=== PATIENT | female | born 1950 | race Caucasian/White ===

== ENCOUNTER → 2016-11-18 | Outpatient (REF) | payer OTHER, BC ==
[2016-11-18 15:33] LABS: ALBUMIN 3.2 g/dL (3.4-5.0); ALKALINE PHOSPHATASE 122 U/L (38-126); BUN/CREATININE RATIO 32 (10-20); CALCULATED IONIZED CALCIUM 4.9 mg/dL (3.8-4.6); MAGNESIUM* 2.5 mg/dL (1.6-2.3); PHOSPHORUS 3.9 mg/dL (2.4-4.9); TOTAL PROTEIN 5.1 g/dL (6.4-8.5)
[2016-11-18 15:34] LABS: MEAN CORPUSCULAR HGB CONC 32.6 g/dL (31.0-37.0); MEAN PLATELET VOLUME 12.1 FL (6.0-9.5); WHITE BLOOD COUNT 3.19 10^3uL (4.0-11.0)
[2016-11-18 15:37] LABS: MEAN CORPUSCULAR HEMOGLOBIN 35.3 PG (26.0-34.0); MEAN CORPUSCULAR VOLUME 108 FL (80-100)
[2016-11-18 15:46] LABS: PLATELET COUNT 25 10^3uL (150-450)
[2016-11-18 16:51] LABS: BAND NEUTROPHILS % 7 % (0-6); EOSINOPHILS % 0 % (0-4); LYMPHOCYTES # 0.6 #; MONOCYTES # 0.4 #; MONOCYTES % 12 % (3-11); SEGMENTED NEUTROPHILS % 57 % (51-67); TOTAL CELLS COUNTED 100
[2016-11-18 16:52] LABS: NUCLEATED RED BLOOD CELLS 3; POLYCHROMASIA SLIGHT; RBC MORPH SEE REFERENCE (NORMAL)
== END ==
LOC: LAB 12:00
PROVIDERS: ATTEND Nurse Practitioner
DX: Z94.81 Bone marrow transplant status (principal); B34.9 Viral infection, unspecified
CPT/HCPCS: 80053; 83735; 84100; 85025

== ENCOUNTER → 2016-11-25 | Outpatient (REF) | payer OTHER, BC ==
[~2016-11-25] MED LIST: ACYC800T PO; ALBU8.5H6 IH; ALEN70TA2 PO; AMITRIP TOP; ATOV750O4 PO; AZTH250C PO; BUDE10.2 IH; COLL30OI TOP; CYCL1DRO OU; D50KC PO; DOCU-243 PO; ETHA100T13 PO; GBPN100C PO; HC2.5C30 TOP; METO25TA2 PO; MGX400T PO; MNTL10T PO; NICO1PAT34 TD; ONDN4T PO; OXYC15TA PO; OXYC30TA77 PO; POLY17PO6 PO; POLY1DRO2 OU; POSA100T PO; PRD5T PO; RFMP300C PO; ROPI1TAB2 PO; SENN-126 PO; TACR0.5C PO; TRIA80OI2 TOP; URSO250T11 PO; VENL150C53 PO; [UNRECOGNIZED DRUG - OTHER] TOP
[2016-11-25 12:22] LABS: BAND NEUTROPHILS % 7 % (0-6); EOSINOPHILS % 1 % (0-4); MONOCYTES % 5 % (3-11); NUCLEATED RED BLOOD CELLS 1; POLYCHROMASIA SLIGHT; RBC MORPH SEE REFERENCE (NORMAL); SEGMENTED NEUTROPHILS % 64 % (51-67); TOTAL CELLS COUNTED 100
[2016-11-25 12:23] LABS: ANISOCYTOSIS MODERATE; MEAN CORPUSCULAR HGB CONC 32.7 g/dL (31.0-37.0); MEAN PLATELET VOLUME 11.6 FL (6.0-9.5); POIKILOCYTOSIS SLIGHT; WHITE BLOOD COUNT 4.43 10^3uL (4.0-11.0)
[2016-11-25 12:24] LABS: MEAN CORPUSCULAR VOLUME 110 FL (80-100)
[2016-11-25 12:40] LABS: ALBUMIN 3.1 g/dL (3.4-5.0); ANION GAP 8.3 MEQ/L (3-15); CALCULATED IONIZED CALCIUM 4.7 mg/dL (3.8-4.6); MAGNESIUM* 1.8 mg/dL (1.6-2.3); PHOSPHORUS 3.1 mg/dL (2.4-4.9); TOTAL PROTEIN 5.3 g/dL (6.4-8.5)
[2016-11-25 12:41] LABS: PLATELET COUNT 27 10^3uL (150-450)
== END ==
LOC: LAB 12:07
PROVIDERS: ATTEND Internal Medicine Hematology & Oncology
DX: B34.9 Viral infection, unspecified (principal); Z94.81 Bone marrow transplant status
CPT/HCPCS: 80053; 83735; 84100; 85007; 85027

== ENCOUNTER → 2016-12-02 | Outpatient (REF) | payer OTHER, BC ==
[2016-12-02 11:19] LABS: MEAN CORPUSCULAR HGB CONC 32.4 g/dL (31.0-37.0); MEAN PLATELET VOLUME 11.9 FL (6.0-9.5); PLATELET COUNT 37 10^3uL (150-450); WHITE BLOOD COUNT 5.37 10^3uL (4.0-11.0)
[2016-12-02 11:22] LABS: MEAN CORPUSCULAR HEMOGLOBIN 35.5 PG (26.0-34.0); MEAN CORPUSCULAR VOLUME 110 FL (80-100)
[2016-12-02 11:29] LABS: ALBUMIN 3.1 g/dL (3.4-5.0); ANION GAP 9.1 MEQ/L (3-15); CALCULATED IONIZED CALCIUM 4.7 mg/dL (3.8-4.6); MAGNESIUM* 1.6 mg/dL (1.6-2.3); TOTAL PROTEIN 5.5 g/dL (6.4-8.5)
[2016-12-02 11:35] LABS: ANISOCYTOSIS SLIGHT; BAND NEUTROPHILS % 7 % (0-6); EOSINOPHILS % 0 % (0-4); LYMPHOCYTES # 0.5 #; MONOCYTES # 0.5 #; MONOCYTES % 9 % (3-11); NUCLEATED RED BLOOD CELLS 6; RBC MORPH SEE REFERENCE (NORMAL); SEGMENTED NEUTROPHILS % 72 % (51-67); TOTAL CELLS COUNTED 100
[2016-12-02 11:36] LABS: POLYCHROMASIA SLIGHT
== END ==
LOC: LAB 09:38
PROVIDERS: ATTEND Nurse Practitioner
DX: Z94.81 Bone marrow transplant status (principal); B34.9 Viral infection, unspecified
CPT/HCPCS: 80053; 83735; 84100; 85007; 85027

== ENCOUNTER 2017-02-16 13:15 | Emergency (ER) | payer BC, MEDICAID, OTHER ==
[~2017-02-16] VITALS: Ht 170.2 cm; Wt 64.5 kg
--- OUTSIDE RECORDS SUMMARY | 2017-02-16 13:23 | XMS REPORT | Continuity of Care Document ---
Author Author [facility] Organization [facility] Address Unknown Phone Unavailable Care Team Providers Care 911 Telecommunicator Name Role Phone [place] PCP [phone] Source Comments Some departments are not documenting in the electronic medical record. If you do not see the information that you expected, contact Release of Information in the Health Information Management department at [phone] for further assistance in locating additional records.[facility] Active Allergies and Adverse Reactions Allergen Noted Date Severity Reactions Comments Cefepime 03/07/2016 Medium RASH Current Medications Prescription Sig. Disp. Refills Start End Date Status Date albuterol (VENTOLIN HFA, Inhale 2 Puffs by mouth 3 Inhaler 3 10/29/20 Active PROAIR HFA, PROVENTIL into the lungs every 6 16 HFA) 90 mcg/actuation hours as needed for inhaler Wheezing or Shortness of Breath. Shake well before use. magnesium oxide (MAG-OX) take 1 tablet by mouth 180 Tab 3 11/01/20 Active 400 mg tablet twice daily 16 polyethylene glycol 3350 Take 17 g by mouth daily. Active (GLYCOLAX; MIRALAX) 17 gram/dose powder metoprolol tartrate Take 0.5 Tabs by mouth 30 Tab 1 11/20/19 Active (LOPRESSOR) 25 mg tablet twice daily. 17 nicotine (NICODERM CQ Apply 1 Patch to top of 28 Patch 2 11/20/19 Active STEP 2) 14 mg/day patch skin as directed daily. 17 montelukast (SINGULAIR) Take 1 Tab by mouth at 30 Tab 11 11/20/19 Active 10 mg tablet bedtime daily. 17 azithromycin (ZITHROMAX) 1 Tab three times weekly. 13 Tab 11 11/20/19 Active 250 mg tablet . 17 rOPINIRole (REQUIP) 1 mg Take 1 Tab by mouth at 30 Tab 1 12/04/19 Active tablet bedtime daily. 17 alendronate (FOSAMAX) 70 Take 1 Tab by mouth every 12 Tab 3 12/04/19 Active mg tablet 7 days. Take at least 30 17 minutes before breakfast with plain water. Do not lie down for 30 minutes. hydrocortisone 2.5% Apply to rectum three 28.35 g 3 12/11/19 Active (ANUSOL-HC) 2.5 % rectal times daily. 17 cream ergocalciferol (VITAMIN Take 1 Cap by mouth every 12 Cap 0 12/12/19 Active D-2) 50,000 unit capsule 7 days. 17 docusate (COLACE) 100 mg Take 1 Cap by mouth twice 180 Cap 3 12/28/19 Active capsule daily. 17 senna (SENOKOT) 8.6 mg Take 1-2 Tabs by mouth at 90 Tab 3 12/28/19 Active tablet bedtime as needed for 17 Constipation. acyclovir (ZOVIRAX) 800 Take 1 Tab by mouth every 60 Tab 1 01/16/20 Active mg tablet 12 hours. 17 tacrolimus (PROGRAF) 0.5 Take 1 Cap by mouth twice 180 Cap 3 01/16/20 Active mg capsule daily. 17 collagenase (SANTYL) 250 Apply to pressure ulcer 30 g 0 01/16/20 Active unit/g topical ointment daily 17 AMITRIPTYLINE HCL Apply 100 g topically to 100 g 1 01/16/20 Active (AMITRIPTYLINE/GABAPENTIN affected area twice 17 /EMU OIL(#)) 4/4/10 % daily. gabapentin (NEURONTIN) Take 2 Caps by mouth 180 Cap 3 01/24/20 Active 100 mg capsule three times daily. 17 atovaquone (MEPRON) 750 Take 10 mL by mouth daily 300 mL 2 01/24/20 Active mg/5 mL oral suspension with breakfast. 17 polyvinyl Apply 1 Drop to both eyes 0 01/24/20 Active alcohol/povidone as Needed. 17 (REFRESH) 1.4/0.6 % ophthalmic solution cyclosporine (RESTASIS) Apply 1 Drop to both eyes 30 Each 2 01/24/20 Active 0.05 % ophthalmic twice daily. 17 emulsion triamcinolone acetonide Apply topically to 80 g 0 01/24/20 Active (KENALOG) 0.1 % topical affected area twice 17 ointment daily. ondansetron (ZOFRAN) 4 mg Take 1-2 Tabs by mouth 30 Tab 0 01/24/20 Active tablet every 6 hours as needed 17 for Nausea. budesonide/formoterol Inhale 2 Puffs by mouth Active (SYMBICORT HFA) 160/4.5 into the lungs twice mcg inhalation daily. venlafaxine XR (EFFEXOR Take 1 Cap by mouth 30 Cap 3 02/07/20 Active XR) 150 mg capsule daily. Take with food. 17 oxyCODONE (OXYCONTIN) 30 One tab by mouth every 8 90 Tab 0 02/14/20 Active mg tablet hours 17 oxyCODONE (ROXICODONE, Take 1 Tab by mouth every 120 Tab 0 02/14/20 Active OXY-IR) 15 mg tablet 4 hours as needed for 17 Pain rifAMPin (RIFADINE) 300 Take 2 Caps by mouth 24 Cap 3 02/15/20 Active mg capsule three times weekly. MWF 17 Take on an empty stomach at least 1 hour before or 2 hours after food. ethambutol (MYAMBUTOL) Take 16 Tabs by mouth 120 Tab 3 02/15/20 Active 100 mg tablet three times weekly. 17 Indications: ATYPICAL MYCOBACTERIAL INFECTION posaconazole EC (NOXAFIL) Take 3 Tabs by mouth 90 Tab 2 02/15/20 Active 100 mg tablet daily with breakfast. ON 17 HOLD 02/14 WITH ELEVATED ALT prednisone (DELTASONE) 5 Take 2 Tabs by mouth 300 Tab 2 02/15/20 Active mg tablet twice daily with meals. 17 DECREASED 02/14. ursodiol (ANAHI 250) 250 Take 2 Tabs by mouth 120 Tab 1 02/15/20 Active mg tablet twice daily. 17 ruxolitinib (JAKAFI) 10 Take 1 Tab by mouth twice 02/15/20 Active mg tablet daily. 17 gabapentin (NEURONTIN) Take 1 Cap by mouth three 90 Cap 3 11/27/19 01/24/20 Discontin 300 mg capsule times daily. 17 17 ued dapsone 100 mg tablet Take 1 Tab by mouth 30 Tab 3 11/27/19 Discontin daily. 17 17 ued fluticasone/salmeterol Inhale 1 Puff by mouth 1 Inhaler 11 11/29/19 01/28/20 Discontin (ADVAIR DISKUS) 500-50 into the lungs every 12 17 17 ued mcg inhalation disk hours. Indications: GVHD venlafaxine XR (EFFEXOR Take 1 Cap by mouth 30 Cap 3 12/04/19 Discontin XR) 150 mg capsule daily. Take with food. 17 17 ued potassium chloride SR Take 1 Tab by mouth twice 60 Cap 1 12/18/19 Discontin (K-DUR) 20 mEq tablet daily with meals. Take 17 17 ued with a meal and a full glass of water. oxyCODONE (ROXICODONE, Take 1-2 Tabs by mouth 60 Tab 0 01/16/20 Discontin OXY-IR) 5 mg tablet every 6 hours as needed 17 17 ued for Pain Earliest Fill Date: 01/15/17 oxyCODONE SR (OXYCONTIN) Take 1 Tab by mouth every 42 Tab 0 01/16/20 01/24/20 Discontin 20 mg tablet 8 hours Earliest Fill 17 17 ued Date: 01/15/17 amiodarone (CORDARONE) Take 1 Tab by mouth 30 Tab 1 01/16/20 Discontin 200 mg tablet daily. Take with food. 17 17 ued tacrolimus (PROGRAF) 0.5 Take 1 Cap by mouth 180 Cap 3 01/22/2008/06 Discontin mg capsule daily. 17 17 ued furosemide (LASIX) 40 mg Take 1 Tab by mouth every 90 Tab 3 01/16/20 01/24/20 Discontin tablet morning. 17 17 ued tacrolimus (PROGRAF) 0.5 Take 1 capsule the 43 Cap 0 01/16/20 Discontin mg capsule evening of discharge, 17 17 ued then take 1 capsule twice daily x 14 days starting 01/08. Then take 1 capsule daily x 2 weeks & stop ruxolitinib (JAKAFI) 10 Take 1 Tab by mouth twice 60 Tab 3 01/18/20 01/21/20 Discontin mg tablet daily. 17 17 ued ruxolitinib (JAKAFI) 10 Take 1 Tab by mouth twice 60 Tab 3 01/21/20 01/24/20 Discontin mg tablet daily. 17 17 ued oxyCODONE SR (OXYCONTIN) Take 1 Tab by mouth every 42 Tab 0 01/24/20 02/14/20 Discontin 20 mg tablet 12 hours 17 17 ued posaconazole EC (NOXAFIL) Take 3 Tabs by mouth 90 Tab 2 01/24/20 Discontin 100 mg tablet daily with breakfast. 17 17 ued prednisone (DELTASONE) 5 Take 5 Tabs by mouth 300 Tab 2 01/24/20 Discontin mg tablet twice daily with meals. 17 17 ued ruxolitinib (JAKAFI) 10 Take 1 Tab by mouth twice 60 Tab 3 01/24/20 01/31/20 Discontin mg tablet daily. 17 17 ued prednisone (DELTASONE) 5 Take 3 Tabs by mouth 300 Tab 2 02/06/20 Discontin mg tablet twice daily with meals. 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 ([facility]) 2016 Closed compression fracture of third lumbar vertebra ([facility]) 02/14/2017 Closed compression fracture of fifth lumbar vertebra ([facility]) 02/14/2017 Elevated ALT measurement 02/14/2017 Hyperkalemia 02/05/2017 Osteoporosis 02/05/2017 Bilateral dry eyes 01/23/2017 Decubitus ulcer of left buttock, stage 2 12/25/2016 Hemorrhoids 12/11/2016 Hypogammaglobulinemia ([facility]) 12/04/2016 Constipation 12/04/2016 Tobacco abuse counseling 11/20/2016 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 ([facility]) 11/20/2016 Major depressive disorder, recurrent, in partial remission ([facility]) 09/17/2016 Major depressive disorder, recurrent episode, mild ([facility]) 09/14/2016 Steroid myopathy 09/13/2016 Compression fracture 09/06/2016 Acute pain due to trauma 09/04/2016 Closed fracture of proximal end of right humerus with nonunion 08/30/2016 Low back pain 08/23/2016 Fatigue 08/12/2016 Hyperpigmentation 08/07/2016 Vertigo 08/07/2016 Atrial flutter, paroxysmal ([facility]) 08/05/2016 Overview: 08/12/16-Comprehensive EPS/Radiofrequency ablation of atrial flutter 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 Anemia due to chronic illness 07/29/2016 Restless leg syndrome 07/29/2016 Sciatica 07/26/2016 Non-rheumatic mitral regurgitation 07/05/2016 Paroxysmal atrial fibrillation ([facility]) 07/01/2016 Last Assessment & Plan: The patient has a history of periprocedural afib sp dccv during her CTI ablation in 07/2016 and post procedural afib 2 days later. She was to continue AAD therapy with Amio 200 mg daily, and follow up with Dr. Grady. She has been since been lost to follow up. Since 07/2016 she has been dc'd of her Amio and anticoagulation. The patient has been asymptomatic of her atrial arrhthymias in the past, in which I recommended further evaluation with a looping secured entrance monitor. She is to follow up with Dr. Grady in 4 weeks to discuss results. If she has recurrent AF, OAC will need to be addressed (CHADSVASC1 for female), and if the burden is high, discussing treatment options of AAD therapy vs. Catheter based ablation. 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 L ast Assessment & Plan: Following with Oncology, and currently in remission Thrombocytopenia ([facility]) 03/26/2016 Resolved Problems Problem Noted Date Resolved Date Generalized abdominal pain 12/25/2016 02/05/2017 Oral ulceration 11/12/2016 12/25/2016 Hypocalcemia 11/10/2016 11/13/2016 Nausea vomiting and diarrhea 10/06/2016 10/06/2016 Nausea, vomiting and diarrhea 10/06/2016 10/06/2016 Increased nausea and vomiting 10/06/2016 10/09/2016 Hypophosphatemia 08/16/2016 11/20/2016 Pancytopenia ([facility]) 08/14/2016 12/25/2016 Paroxysmal a-fib ([facility]) 08/10/2016 08/21/2016 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[facility]) 08/09/2016 12/25/2016 Decreased appetite 08/01/2016 11/20/2016 Elevated white blood cell count 07/29/2016 08/07/2016 Hypomagnesemia 07/29/2016 12/25/2016 Nausea 07/23/2016 08/07/2016 Acute respiratory failure with hypoxia ([facility]) 07/05/2016 07/17/2016 Pleural effusion, bilateral 07/05/2016 07/17/2016 QT prolongation 07/05/2016 11/20/2016 NANO (acute kidney injury) ([facility]) 06/30/2016 07/17/2016 Hypoxia 06/30/2016 07/29/2016 SOB (shortness of breath) 06/30/2016 11/20/2016 Hypotension 06/21/2016 11/20/2016 Oral mucositis (ulcerative) due to antineoplastic therapy 06/21/201607/17 Diarrhea 06/20/2016 07/17/2016 Postural dizziness 06/20/2016 07/17/2016 Hypokalemia 06/20/2016 11/20/2016 Syncope 06/17/2016 11/20/2016 Fall 06/15/2016 11/20/2016 Overview: Patient fell on 08/06/16 Conditioning chemotherapy prior to peripheral blood stem cell transplant 06/17/2016 Orthostatic hypotension 05/23/2016 12/25/2016 Pancytopenia due to antineoplastic chemotherapy ([facility]) 05/11/20162015 Nausea 05/05/2016 07/17/2016 On antineoplastic chemotherapy 03/26/2016 08/26/2016 Most Recent Encounters Date Type Specialty Providers Description 02/14/2017 Office Visit Oncology Vicki Kimball MD GVH (graft versus host CareyBebeto mazariegos, NOC ANALYST disease) (HCC) (Primary Dx); Decubitus ulcer of left buttock, stage 2; Steroid-induced myopathy; S/P allogeneic bone marrow transplant (HCC); 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 (HCC); Low back pain without sciatica, unspecified back pain laterality, unspecified chronicity; Closed compression fracture of third lumbar vertebra (HCC); Closed compression fracture of fifth lumbar vertebra (HCC) 02/14/2017 Nurse Only Oncology Vicki Kimball MD 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 (HCC); S/P allogeneic bone marrow transplant (HCC); 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[facility]) 02/14/2017 Office Visit Infectious Diseases Sandrine Leahy DO Mycobacterium avium complex (HCC) (Primary Dx); 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) 02/14/2017 Hospital Cardiology Vicki Kimball MD Arrived Encounter 02/14/2017 Office Visit Cardiology Edith Buckley MD New To Provider - discuss Tanja Saleem PA-C med changes 02/14/2017 Orders Only Oncology Sherice Akbar, PHARMD 02/14/2017 Documentation Cardiology Bobbi Desai Other - event monitor Enrollment confirmed-CardioLabs 02/14/2017 Documentation Oncology Manuel Godinez MD 02/13/2017 [facility] Burn Surgery / Burn Care Benito Ruth MD Encounter 02/13/2017 Office Visit Oncology Manuel Godinez MD H/O stem cell transplant (HCC) (Primary Dx); Low back pain without sciatica, unspecified back pain laterality, unspecified chronicity; 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[facility]) 02/12/2017 Documentation Oncology Manuel Godinez MD 02/12/2017 Telephone Oncology Dre Brink Appointment - Called spoke w/pt - she confirmed appt for 02/1302/10/2017 Telephone Infectious Diseases Sandrine Leahy DO General Question 02/10/2017 Telephone Oncology Manuel Godinez MD Appointment - LM for Palliative Care appt 02/08/2017 [facility] Radiology Edith Buckley MD Encounter 02/08/2017 Ancillary Oncology Edith Buckley MD H/O stem cell transplant Orders (HCC) (Primary Dx) 02/07/2017 Screening Form 02/06/2017 [facility] Burn Surgery / Burn Care Emily Puente, ABHILASH Encounter 02/06/2017 Orders Only Oncology Shahida Roy RN 02/06/2017 Telephone Oncology Jane Gallegos RN BMT Follow-up 02/06/2017 Orders Only Oncology Edith Buckley MD H/O stem cell transplant (HCC) (Primary Dx) 02/06/2017 Telephone Oncology Kavya Santillan Other RN 02/06/2017 Documentation Oncology Yesi Resendez RN 02/05/2017 Office Visit Oncology Edith Buckley MD 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 (HCC) (Primary Dx); S/P allogeneic bone marrow transplant (HCC); 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); Low back pain without sciatica, unspecified back pain laterality, unspecified chronicity; Decubitus ulcer of left buttock, stage 2; Hyperkalemia; Osteoporosis 02/05/2017 Hospital Oncology Edith Buckley MD Encounter 02/03/2017 Telephone Oncology Shahida Roy RN BMT Follow-up 02/03/2017 Documentation Oncology Kavya Santillan RN 01/31/2017 [facility] Radiology Vicki Kimball MD Encounter 01/31/2017 [facility] Burn Surgery / Burn Care Emily Puente, ABHILASH Encounter 01/30/2017 Office Visit Pulmonology Mat Rothman MD Lung nodule ( Primary Dx); Bronchiolitis obliterans syndrome (HCC); 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); Tobacco abuse counseling; Steroid-induced myopathy 01/30/2017 Hospital Radiology Asim Sheets MD Encounter 01/30/2017 Procedure visit Anesthesia Pain Asim Sheets MD Lumbar radiculopathy (Primary Dx); Degeneration of lumbar or lumbosacral intervertebral disc 01/30/2017 Orders Only Oncology Shahida Roy RN H/O stem cell transplant (HCC) (Primary Dx) 01/30/2017 Ancillary Anesthesia Pain Asim Sheets MD Lumbar radiculopathy Orders (Primary Dx); Right shoulder pain, unspecified chronicity 01/30/2017 Ancillary Pain Management Asim Sheets MD Orders 01/29/2017 Documentation Oncology Kavya Santillan RN 01/29/2017 Orders Only Oncology Shahida Roy RN H/O stem cell transplant (HCC) (Primary Dx) 01/27/2017 Office Visit Oncology Edith Buckley MD Bronchiolitis obliterans syndrome (HCC) (Primary Dx) 01/27/2017 Hospital Oncology Edith Buckley MD Encounter 01/27/2017 Orders Only Oncology Katherine Linares ARNP Mantle cell lymphoma, unspecified body region (Primary Dx); H/O stem cell transplant (HCC) 01/27/2017 Telephone Oncology Shahida Roy RN BMT Follow-up 01/27/2017 Telephone Ophthalmology Emelyn Tnieo, LISY Appointment 01/24/2017 Orders Only Oncology Fifi Haley RN H/O stem cell transplant (HCC) (Primary Dx) 01/21/2017 Documentation Oncology Vicki Kimball MD 01/20/2017 Orders Only Orthopedic Surgery Antoni Chavarria MD Surgery follow-up (Primary Dx) 01/17/2017 Documentation Zoie Andre 01/17/2017 Documentation Oncology Vicki Kimball MD 01/17/2017 Orders Only Oncology Shereen Dye, KINSEYD 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) (Primary Dx) 01/16/2017 Surgery Janusz Aragon MD BRONCHOSCOPY WITH LAVAGE 01/16/2017 Prep for Case Janusz Aragon MD 01/15/2017 [facility] Vicki Kimball MD Bronchiolitis obliterans - Encounter Reji Castaneda DO syndrome (HCC) 01/23/2017 01/15/2017 Anesthesia Mojgan Goode, SRNA Event 01/15/2017 Orders Only Oncology Edith Buckley MD 01/14/2017 Hospital Encounter 01/11/2017 Hospital Cardiology Vaibhav Astorga DO Encounter 01/01/2017 [facility] Radiology Vicki Kimball MD Encounter Barb Livingston RN Sattarin, Hameed Collins, Zachary S, MD 01/01/2017 Screening Form 12/28/2016 [facility] Rehabilitation Cely Espinal MD Steroid-induced myopathy - Encounter Vaibhav Astorga DO 01/15/2017 12/25/2016 Hospital Edith Buckley MD Thrombocytopenia (HCC) - Encounter Kobi Ho MD 12/28/2016 12/25/2016 Hospital Oncology Edith Buckley MD Encounter 12/25/2016 Office Visit Oncology Vicki Kimball MD H/O stem cell transplant Edith Buckley MD (HCC) (Primary Dx); 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 (HCC); 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); Generalized abdominal pain; Fatigue due to exposure, subsequent encounter; Steroid-induced myopathy; S/P allogeneic bone marrow transplant (HCC); Hypogammaglobulinemia (HCC); Decubitus ulcer of left buttock, stage 2 12/25/2016 Nurse Only Oncology Vicki Kimball MD Hypogammaglobulinemia (HCC) (Primary Dx); 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); S/P allogeneic bone marrow transplant (HCC); 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 (HCC) 12/23/2016 Documentation Oncology Sandrine Hui RN 12/18/2016 Nurse Only Oncology Vicki Kimball MD 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) (Primary Dx); 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 (HCC); S/P allogeneic bone marrow transplant (HCC) 12/18/2016 Orders Only Oncology Bebeto Carey APRN History of stem cell transplant (HCC) (Primary Dx) 12/18/2016 Refill Oncology Katherin Chaney RN Mantle cell lymphoma, unspecified body region (Primary Dx) 12/18/2016 Refill Oncology Katherin Chaney RN Mantle cell lymphoma, unspecified body region (Primary Dx) 12/18/2016 Telephone Oncology Kavya Santillan Other RN 12/12/2016 Orders Only Oncology Claudia Ballard APRN 12/12/2016 Orders Only Oncology Claudia Ballard APRN 12/11/2016 [facility] Oncology Vicki Kimball MD Encounter 12/11/2016 Office Visit Oncology Vicki Kimball MD 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 (HCC) (Primary Dx); 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); S/P allogeneic bone marrow transplant (HCC); Steroid-induced myopathy; Hemorrhoids, unspecified hemorrhoid type; Hypomagnesemia 12/11/2016 Nurse Only Oncology Vicki Kimball MD S/P allogeneic bone marrow transplant (HCC); 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 (HCC); 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) 12/11/2016 Orders Only Oncology Claudia Ballard APRN 12/11/2016 Orders Only Oncology Cassandra Sullivan, PHARMD 12/09/2016 Telephone Oncology Sandrine Hui RN Other - HH and lab work 12/09/2016 Telephone Oncology Heidy Mejia BMT Follow-up - 180 day 12/06/2016 Documentation Oncology Sandrine Hui RN 12/05/2016 Procedure visit Anesthesia Pain Asim Sheets MD Lumbar radiculopathy (Primary Dx); Degeneration of lumbar or lumbosacral intervertebral disc 12/05/2016 Hospital Radiology Asim Sheets MD Encounter 12/05/2016 Ancillary Pain Management Asim Sheets MD Lumbar radiculopathy Orders (Primary Dx) 12/04/2016 Office Visit Oncology Vicki Kimball MD 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 (HCC) (Primary Dx); 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); S/P allogeneic bone marrow transplant (HCC); Bronchiolitis obliterans syndrome (HCC); Hypogammaglobulinemia (HCC); Thrombocytopenia (HCC); Other constipation; Steroid-induced myopathy 12/04/2016 Hospital Oncology Vicki Kimball MD Encounter 12/04/2016 Documentation Oncology Sandrine Hui RN 12/03/2016 Documentation Oncology Yesi Resendez RN 11/29/2016 Documentation Oncology Sandrine Hui RN 11/28/2016 [facility] Oncology Surjit Phipps MD Encounter 11/28/2016 Orders Only Oncology Cassandra Sullivan, PHARMD 11/28/2016 Telephone Pulmonology Mat Rothman MD Medication Problem 11/27/2016 Office Visit Oncology Vicki Kimball MD 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) (Primary Dx); 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 (HCC); 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HCC); H/O stem cell transplant (HCC); Steroid-induced myopathy; Pancytopenia (HCC) 11/27/2016 Hospital Oncology Vicki Kimball MD Encounter 11/27/2016 Office Visit Orthopedic Surgery Antoni Chavarria MD Closed torus fracture of proximal end of right humerus with nonunion, subsequent encounter (Primary Dx) 11/27/2016 Orders Only Oncology Nestor Allen APRN 11/25/2016 Orders Only Oncology Yesi Son, ABHILASH S/P allogeneic bone marrow transplant (HCC) (Primary Dx) 11/21/2016 Hospital Radiology Asim Sheets MD Canceled (Error) Encounter 11/21/2016 Ancillary Pain Management Asim Sheets MD Lumbar radiculopathy Orders (Primary Dx) 11/20/2016 Office Visit Pulmonology Mat Rothman MD GVHD (graft versus host disease) (HCC) (Primary Dx); Bronchiolitis obliterans syndrome (HCC); 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); 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 (HCC) 11/20/2016 Office Visit Oncology Reji Castaneda DO Mantle cell lymphoma of Vicki Kimball MD lymph nodes of multiple regions (HCC) (Primary Dx); 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HCC); S/P allogeneic bone marrow transplant (HCC); Thrombocytopenia (HCC); Steroid myopathy; Pancytopenia (HCC); Low back pain without sciatica, unspecified back pain laterality, unspecified chronicity; Oral ulceration; Tobacco abuse counseling; Steroid-induced myopathy 11/20/2016 [facility] Oncology Reji Castaneda DO Encounter Vicki Kimball MD Immunizations Name Dates Previously Given Next Due Flu Vaccine 08/01/2016 Quadrivalent=>3 Yo (Preservative Free) Hepatitis B Vaccine Ill 01/27/2017 Patient 4 Dose IM Hib conj vaccine, 4 dose 01/27/2017 (PRP-T) IM (ActHIB) IPV 01/27/2017 Meningococcal Conjug 01/27/2017 Vaccine IM (Menveo) [place] Component 1 Meningococcal Conjug 01/27/2017 Vaccine IM (Menveo) [id number]-135 Component 2 Pneumococcal 01/27/2017 Vaccine([facility]/immunocompromised adult) Tdap Vaccine 01/27/2017 Social History Tobacco Use Types Packs/Day Years Used Date Former Smoker Cigarettes Quit: 06/05/2016 Smokeless Tobacco: Never Used Comments: pt does vape at times Alcohol Use Drinks/Week oz/Week Comments No rarely Last Filed Vital Signs Vital Sign Reading Time Taken Blood Pressure 144/85 02/14/2017 3:22 PM CDT Pulse 74 02/14/2017 3:22 PM CDT Temperature 36.8 C (98.2 F) 02/14/2017 3:22 PM CDT Respiratory Rate 17 02/14/2017 3:22 PM CDT Height 1.778 m (5' 10") 02/14/2017 2:43 PM CDT Weight 64.411 kg (142 lb) 02/14/2017 2:43 PM CDT Body Mass Index 20.37 02/14/2017 2:43 PM CDT Oxygen Saturation 100% 02/14/2017 2:43 PM CDT Plan of Care Health Maintenance Due Date Last Done Comments Hepatitis C Screening 1950 Physical (Comprehensive) 1959 Exam Cervical Cancer Screening 1973 Colorectal Cancer 2002 Screening Shingles Vaccine 2012 Breast Cancer Screening 03/27/2017 03/27/2016 Influenza Vaccine 07/18/2017 08/01/2016 Tetanus Vaccine 01/27/2027 01/27/2017 Pertussis Vaccine Completed 01/27/2017 Procedures from Last 3 Months Procedure Name Priority Date/Time Associated Diagnosis Comments PROCEDURE RECORD-SCAN 02/04/2017 Results for this 1:00 PM CDT procedure are in the results section. TELEMETRY STRIPS-SCAN 01/26/2017 Results for this 5:45 PM CDT procedure are in the results section. ECG UNCONFIRMED-SCAN 01/26/2017 Results for this 5:20 PM CDT procedure are in the results section. EXERCISE OXIMETRY-SCAN 01/26/2017 Results for this 5:13 PM CDT procedure are in the results section. EXERCISE OXIMETRY-SCAN 01/23/2017 Results for this 2:53 PM FIRE ENGINE OPERATOR procedure are in the results section. ECG-SCAN 01/23/2017 Results for this 8:26 AM FIRE ENGINE OPERATOR procedure are in the results section. SLEEP STUDY-SCAN 01/20/2017 Results for this 1:07 PM FIRE ENGINE OPERATOR procedure are in the results section. EXERCISE OXIMETRY-SCAN 01/20/2017 Results for this 1:07 PM FIRE ENGINE OPERATOR procedure are in the results section. BRONCHOSCOPY WITH LAVAGE 01/16/2017 Lung infiltrate 3:15 PM FIRE ENGINE OPERATOR EXERCISE OXIMETRY-SCAN 01/15/2017 Results for this 2:34 PM FIRE ENGINE OPERATOR procedure are in the results section. SLEEP STUDY-SCAN 01/15/2017 Results for this 2:33 PM FIRE ENGINE OPERATOR procedure are in the results section. SLEEP STUDY-SCAN 01/14/2017 Results for this 2:47 PM FIRE ENGINE OPERATOR procedure are in the results section. WA NJX ANES&/STRD W/IMG Routine 12/05/2016 Lumbar radiculopathy Results for this TFRML EDRL LMBR/SAC EA LV 4:07 PM FIRE ENGINE OPERATOR Degeneration of lumbar or procedure are in the lumbosacral results section. intervertebral disc WA NJX ANES&/STRD W/IMG Routine 12/05/2016 Lumbar radiculopathy Results for this TFRML EDRL LMBR/SAC 1 LVL 4:07 PM FIRE ENGINE OPERATOR Degeneration of lumbar or procedure are in the lumbosacral results section. intervertebral disc Results from Last 3 Months MAGNESIUM (02/14/2017 2:40 PM)Only the most recent of 17 results within the time period is included. Component Value Range Magnesium 2.3 1.6-2.6 mg/dL Specimen Blood COMPREHENSIVE METABOLIC PANEL (02/14/2017 2:40 PM)Only the most recent of 13 results within the time period is included. Component Value Range Sodium 139 137-147 MMOL/L Potassium 4.3 3.5-5.1 MMOL/L Chloride 105 98-110 MMOL/L Glucose 135 (H) 70-100 MG/DL Blood Urea Nitrogen 28 (H) 7-25 MG/DL Creatinine 0.85 0.4-1.00 MG/DL Calcium 8.9 8.5-10.6 MG/DL Total Protein 5.8 (L) 6.0-8.0 G/DL Total Bilirubin 0.3 0.3-1.2 MG/DL Albumin 3.4 (L) 3.5-5.0 G/DL Alk Phosphatase 198 (H) 25-110 U/L AST (SGOT) 33 7-40 U/L CO2 28 21-30 MMOL/L ALT (SGPT) 62 (H) 7-56 U/L Anion Gap 6 3-12 eGFR Non >60Comment: >60 mL/min The eGFR is not validated for use in drug dosing adjustments. Continue to use estimated creatinine clearance per dosing reference text. Please contact the Clinical Pharmacist for questions. eGFR >60Comment: >60 mL/min The eGFR is not validated for use in drug dosing adjustments. Continue to use estimated creatinine clearance per dosing reference text. Please contact the Clinical Pharmacist for questions. Specimen Blood CBC AND DIFF (02/14/2017 2:40 PM)Only the most recent of 22 results within the time period is included. Component Value Range White Blood Cells 7.9 4.5-11.0 K/UL RBC 3.04 (L) 4.0-5.0 M/UL Hemoglobin 10.4 (L) 12.0-15.0 GM/DL Hematocrit 31.7 (L) 36-45 % MCV 104.1 (H) 80-100 FL MCH 34.1 (H) 26-34 PG MCHC 32.8 32.0-36.0 G/DL RDW 17.7 (H) 11-15 % Platelet Count 86 (L) 150-400 K/UL MPV 9.4 7-11 FL Segmented Neutrophils 75 41-77 % Bands 3 0-10 % Lymphocytes 9 (L) 24-44 % Monocytes 10 4-12 % Metamyelocyte 2 % Myelocyte 1 % ANISO PRESENT POIK PRESENT Ovalocyte PRESENT MACRO PRESENT Platelet Estimate MOD DEC Absolute Neutrophil Count 6.17 1.8-7.0 K/UL Manual Specimen Blood 2-D + DOPPLER ECHOCARDIOGRAM (02/14/2017 1:55 PM)Only the most recent of 2 results within the time period is included. Component Value Range BSA 1.76 m2 ECHO EF 60 % Referring Provider [place] LVIDD 4.6 3.9-5.3 cm LVIDS 3.4 cm IVS 1.0 0.6-0.9 cm PW 1.0 0.6-0.9 cm FS 26.09 28-44 % EF 44.35 % LA size 4.0 2.7-3.8 cm LA volume 45.0 22-52 mL Left Atrium Index 25.57 10-32 Right Ventricular Basal 3.1 cm (2.4-4.2) Diameter Right Atrial Area 10.0 cm2 (<=18) Right Ventricular Mid 2.0 cm (2.0-3.5) Diameter Right Ventricular Long 7.0 cm (5.6-8.6) Diameter Sinus 3.0 2.1-3.5 cm AV peak velocity 1.2 m/s MV vena contracta 0.80 cm Vn Nyquist 0.34 m/s Radius 0.5 cm Mr max ramses 6.2 m/s MR PISA EROA 0.09 cm2 TV rest pulmonary artery 30 mmHg pressure E/A ratio 0.71 TDI e' 0.060 m/s E/E' ratio 8.33 MV Peak E Ramses PW 0.500 m/s MV Peak A Ramses 0.700 m/s Narrative Rest Echo: Overall left ventricular systolic function is normal. EF~ 60% No regional wall motion abnormalities identified Valves appear structurally normal without signficant stenosis or regurgitation No significant pericardial effusion Normal chamber dimensions Normal LV wall thickness Normal diastolic function Normal aortic root dimensions Estimated peak systolic PA pressure=30 mmHg MRI L-SPINE WO/W CONTRAST (02/08/2017 8:07 AM) Impressions 1.Redemonstration of moderate L1 compression deformity with slight retropulsion of the superior vertebral body which impresses on the ventral thecal sac without significant spinal canal compromise. 2.Development of superior endplate compression fractures at L3 and L5. 3.Redemonstration of bilateral sacral alar fractures, partially visualized. 4.Unchanged S2 Compression fracture. 5.Prior T11 and T12 vertebroplasty with unchanged mild compression deformities. 6.Multilevel neural foraminal and spinal canal narrowing, which is greatest of a moderate degree at L2-L3. A message was sent with high priority via the electronic medical record communicating new findings. Additionally, findings were discussed with Dr. Buckley via phone at 10:14 AM on 02/09/2017. Approved by Renae Edwards D.O. on 02/10/2017 10:15 AM By my electronic signature, I attest that I have personally reviewed the images for this examination and formulated the interpretations and opinions expressed in this report Finalized by Guanaco Ching M.D. on 02/10/2017 5:17 PM. Dictated by Renae Edwards D.O. on 02/10/2017 7:12 AM. Narrative EXAM: MRI L-SPINE HISTORY: 66-year-old female, low back pain. Mantle cell lymphoma. Technique: Multiple sagittal and axial MR sequences were obtained of the lumbar spine with and without gadolinium contrast. Comparison: MRI L-spine 09/01/2016; L spine radiographs 11/04/2016; CT chest 01/15; CT abdomen/pelvis 12/25/2016 FINDINGS: 5 nonrib-bearing lumbar-type vertebral bodies are identified. Redemonstration of prior vertebroplasty at T11 and T12 with unchanged mild compression deformity at these levels. Redemonstration of a moderate compression deformity of L1 vertebral body resulting in greater than 50% height loss and slight retropulsion of the posterior vertebral body, which impresses on the ventral thecal sac without significant spinal canal compromise. Additionally there has been development of compression fractures along the superior aspect of the L3 and L5 vertebral bodies without significant height loss. Partially visualized and redemonstrated bilateral sacral alar fractures. Unchanged mild S2 compression deformity. There is unchanged grade 1 anterolisthesis of L3 on L4. Lumbar alignment is otherwise maintained. 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 T12-L1: Slight retropulsion of the superior vertebral body, degenerative disc disease, and facet hypertrophy result in mild bilateral neural foraminal narrowing. There is impression on the ventral thecal sac without significant spinal canal narrowing. L1-L2: Degenerative disc disease, symmetric disc bulge, and facet hypertrophy result in mild bilateral neural foraminal narrowing without significant spinal canal compromise. L2-L3: Degenerative disease, symmetric disc bulge, ligament flavum thickening and facet arthrosis result in moderate bilateral neural foraminal narrowing and central spinal stenosis. L3-L4: Anterolisthesis, symmetric disc bulge, degenerative disc disease, and facet arthrosis result in mild right and moderate left neural foraminal narrowing with mild central spinal stenosis. L4-L5: Degenerative disc disease symmetric disc bulge, and facet arthrosis is present without significant neural foraminal or spinal canal compromise. L5-S1: Degenerative disc disease and facet arthrosis is present without significant neural foraminal or spinal canal compromise. Fatty atrophy of the paraspinous musculature. The visualized paraspinous structures are otherwise unremarkable. Procedure Note Interface, Radiant Results - FriFeb 10, 2017 5:20 PM CDT EXAM: MRI L-SPINE HISTORY: 66-year-old female, low back pain. Mantle cell lymphoma. Technique: Multiple sagittal and axial MR sequences were obtained of the lumbar spine with and without gadolinium contrast. Comparison: MRI L-spine 09/01/2016; L spine radiographs 11/04/2016; CT chest 01/15; CT abdomen/pelvis 12/25/2016 FINDINGS: 5 nonrib-bearing lumbar-type vertebral bodies are identified. Redemonstration of prior vertebroplasty at T11 and T12 with unchanged mild compression deformity at these levels. Redemonstration of a moderate compression deformity of L1 vertebral body resulting in greater than 50% height loss and slight retropulsion of the posterior vertebral body, which impresses on the ventral thecal sac without significant spinal canal compromise. Additionally there has been development of compression fractures along the superior aspect of the L3 and L5 vertebral bodies without significant height loss. Partially visualized and redemonstrated bilateral sacral alar fractures. Unchanged mild S2 compression deformity. There is unchanged grade 1 anterolisthesis of L3 on L4. Lumbar alignment is otherwise maintained. 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 T12-L1: Slight retropulsion of the superior vertebral body, degenerative disc disease, and facet hypertrophy result in mild bilateral neural foraminal narrowing. There is impression on the ventral thecal sac without significant spinal canal narrowing. L1-L2: Degenerative disc disease, symmetric disc bulge, and facet hypertrophy result in mild bilateral neural foraminal narrowing without significant spinal canal compromise. L2-L3: Degenerative disease, symmetric disc bulge, ligament flavum thickening and facet arthrosis result in moderate bilateral neural foraminal narrowing and central spinal stenosis. L3-L4: Anterolisthesis, symmetric disc bulge, degenerative disc disease, and facet arthrosis result in mild right and moderate left neural foraminal narrowing with mild central spinal stenosis. L4-L5: Degenerative disc disease symmetric disc bulge, and facet arthrosis is present without significant neural foraminal or spinal canal compromise. L5-S1: Degenerative disc disease and facet arthrosis is present without significant neural foraminal or spinal canal compromise. Fatty atrophy of the paraspinous musculature. The visualized paraspinous structures are otherwise unremarkable. IMPRESSION 1. Redemonstration of moderate L1 compression deformity with slight retropulsion of the superior vertebral body which impresses on the ventral thecal sac without significant spinal canal compromise. 2. Development of superior endplate compression fractures at L3 and L5. 3. Redemonstration of bilateral sacral alar fractures, partially visualized. 4. Unchanged S2 Compression fracture. 5. Prior T11 and T12 vertebroplasty with unchanged mild compression deformities. 6. Multilevel neural foraminal and spinal canal narrowing, which is greatest of a moderate degree at L2-L3. A message was sent with high priority via the electronic medical record communicating new findings. Additionally, findings were discussed with Dr. Buckley via phone at 10:14 AM on 02/09/2017. Approved by Renae Edwards D.O. on 02/10/2017 10:15 AM By my electronic signature, I attest that I have personally reviewed the images for this examination and formulated the interpretations and opinions expressed in this report Finalized by Guanaco Ching M.D. on 02/10/2017 5:17 PM. Dictated by Renae Edwards D.O. on 02/10/2017 7:12 AM. HAPTOGLOBIN (02/05/2017 2:42 PM) Component Value Range Haptoglobin 232 (H) 16-200 MG/DL Specimen Blood PERIPHERAL SMEAR (02/05/2017 2:42 PM) Component Value Range Peripheral Smear MACROCYTIC ANEMIA WITH ANISOCYTOSIS. GRANULOCYTOSIS WITHOUT LEFT SHIFT. ABSOLUTE LYMPHOCYTOPENIA. MILD MONOCYTOSIS MODERATE THROMBOCYTOPENIA WITH NORMAL PLATELET MORPHOLOGY. Pathologist Signature INTERPRETED BY CURTIS DIALLO M.D. By the PATH SIGNATURE ABOVE, I attest that I have personally formulated the final interpretation expressed in this report and that the above diagnosis is based upon my examination of the slides and/or other material indicated in this report. Specimen Blood LDH-LACTATE DEHYDROGENASE (02/05/2017 2:42 PM)Only the most recent of 4 results within the time period is included. Component Value Range Lactate Dehydrogenase 363 (H) 100-210 U/L Specimen Blood RETICULOCYTE COUNT (02/05/2017 2:42 PM) Component Value Range Retic, Uncorrected 1.5 0.5-2.0 % Retic, Corrected 1.1 % Retic, Absolute 47.9 30-94 K/UL Specimen Blood CMV QUANT PCR-BLOOD (02/05/2017 2:42 PM)Only the most recent of 9 results within the time period is included. Component Value Range CMV DNA Quant PCR Negative for CMV CMV Comment-Blood This assay uses analyte specific reagents to detect CMV DNA in plasma or fluid. It has not been cleared or approved by the US Food and Drug Administration. The performance characteristics were determined by the [facility]. Results should be correlated with clinical findings. Specimen Blood PROCEDURE RECORD-SCAN (02/04/2017 1:00 PM) Narrative Ordered by an unspecified provider. BONE DENSITY SPINE/HIP (01/31/2017 11:48 AM) Impressions Osteoporosis. The fracture risk is high. Follow up DEXA scan in 1 year is suggested while the patient is on therapy. Approved by Mat Carpio M.D. on 01/31/2017 1:29 PM By my electronic signature, I attest that I have personally reviewed the images for this examination and formulated the interpretations and opinions expressed in this report Finalized by George Mclaughlin D.O. on 01/31/2017 5:43 PM. Dictated by Mat Carpio M.D. on 01/31/2017 1:25 PM. Narrative BONE MINERAL ANALYSIS BY DEXA CLINICAL HISTORY: S/P allogeneic bone marrow transplant.Prolonged steroid use. COMPARISON: None FINDINGS: L1 - L4 vertebral bone mineral density of 1.064 g / cm2, T-score -1.1 Left femoral neck bone mineral density of 0.653 g / cm2, T-score -2.8 Left trochanter bone mineral density of 0.467 g / cm2, T-score -3.3 Total left hip bone mineral density of 0.697 g / cm2, T-score -2.5 Right femoral neck bone mineral density of0.651 g / cm2, T-score -2.8 Right trochanter bone mineral density of 0.457 g / cm2, T-score -3.4 Total right hip bone mineral density of 0.695 g / cm2, T-score -2.5 Note: Impression is based on findings from the region of highest risk. T-score > -0.99=Normal T-score -1.00 to -1.49=Mild osteopenia T-score -1.50 to -1.99=Moderate osteopenia T-score -2.00 to -2.49=Severe osteopenia T-score < or=-2.50=Osteoporosis Procedure Note Interface, Radiant Results - FriJan 31, 2017 5:46 PM CDT BONE MINERAL ANALYSIS BY DEXA CLINICAL HISTORY: S/P allogeneic bone marrow transplant. Prolonged steroid use. COMPARISON: None FINDINGS: L1 - L4 vertebral bone mineral density of 1.064 g / cm2, T-score -1.1 Left femoral neck bone mineral density of 0.653 g / cm2, T-score -2.8 Left trochanter bone mineral density of 0.467 g / cm2, T-score -3.3 Total left hip bone mineral density of 0.697 g / cm2, T-score -2.5 Right femoral neck bone mineral density of 0.651 g / cm2, T-score -2.8 Right trochanter bone mineral density of 0.457 g / cm2, T-score -3.4 Total right hip bone mineral density of 0.695 g / cm2, T-score -2.5 Note: Impression is based on findings from the region of highest risk. T-score > -0.99=Normal T-score -1.00 to -1.49=Mild osteopenia T-score -1.50 to -1.99=Moderate osteopenia T-score -2.00 to -2.49=Severe osteopenia T-score < or=-2.50=Osteoporosis IMPRESSION Osteoporosis. The fracture risk is high. Follow up DEXA scan in 1 year is suggested while the patient is on therapy. Approved by Mat Carpio M.D. on 01/31/2017 1:29 PM By my electronic signature, I attest that I have personally reviewed the images for this examination and formulated the interpretations and opinions expressed in this report Finalized by George Mclaughlin D.O. on 01/31/2017 5:43 PM. Dictated by Mat Carpio M.D. on 01/31/2017 1:25 PM. FLUORO GUIDANCE FOR SPINE INJ RAD (01/30/2017 10:57 AM)Only the most recent of 2 results within the time period is included. Narrative This order has been auto finalized and does not contain a result. CBC (01/27/2017 8:25 AM)Only the most recent of 9 results within the time period is included. Component Value Range White Blood Cells 7.7 4.5-11.0 K/UL RBC 2.93 (L) 4.0-5.0 M/UL Hemoglobin 10.0 (L) 12.0-15.0 GM/DL Hematocrit 31.4 (L) 36-45 % MCV 107.3 (H) 80-100 FL MCH 34.1 (H) 26-34 PG MCHC 31.8 (L) 32.0-36.0 G/DL RDW 19.5 (H) 11-15 % Platelet Count 67 (L) 150-400 K/UL MPV 9.3 7-11 FL TELEMETRY STRIPS-SCAN (01/26/2017 5:45 PM) Narrative Ordered by an unspecified provider. ECG UNCONFIRMED-SCAN (01/26/2017 5:20 PM) Narrative Ordered by an unspecified provider. EXERCISE OXIMETRY-SCAN (01/26/2017 5:13 PM) Narrative Ordered by an unspecified provider. EXERCISE OXIMETRY-SCAN (01/23/2017 2:53 PM) Narrative Ordered by an unspecified provider. ECG-SCAN (01/23/2017 8:26 AM) Narrative Ordered by an unspecified provider. BASIC METABOLIC PANEL (01/23/2017 3:10 AM)Only the most recent of 15 results within the time period is included. Component Value Range Sodium 141 137-147 MMOL/L Potassium 4.7 3.5-5.1 MMOL/L Chloride 106 98-110 MMOL/L CO2 30 21-30 MMOL/L Anion Gap 5 3-12 Glucose 149 (H) 70-100 MG/DL Blood Urea Nitrogen 21 7-25 MG/DL Creatinine 0.76 0.4-1.00 MG/DL Calcium 8.7 8.5-10.6 MG/DL eGFR Non >60Comment: >60 mL/min The eGFR is not validated for use in drug dosing adjustments. Continue to use estimated creatinine clearance per dosing reference text. Please contact the Clinical Pharmacist for questions. eGFR >60Comment: >60 mL/min The eGFR is not validated for use in drug dosing adjustments. Continue to use estimated creatinine clearance per dosing reference text. Please contact the Clinical Pharmacist for questions. Specimen Blood IMMUNOGLOBULIN G (IGG) (01/21/2017 2:40 AM)Only the most recent of 2 results within the time period is included. Component Value Range IgG 295 (L) 762-1488 MG/DL Specimen Blood PHOSPHORUS (01/21/2017 2:40 AM)Only the most recent of 6 results within the time period is included. Component Value Range Phosphorus 2.3 2.0-4.0 MG/DL Specimen Blood SLEEP STUDY-SCAN (01/20/2017 1:07 PM) Narrative Ordered by an unspecified provider. EXERCISE OXIMETRY-SCAN (01/20/2017 1:07 PM) Narrative Ordered by an unspecified provider. CRYPTOCOCCUS ANTIGEN (01/17/2017 4:05 PM) Component Value Range Cryptococcal AG Screen NEG NEG-NEG Specimen Blood PFT COMPLETE PULM FUNCTION (01/17/2017 3:02 PM) Component Value Range FVC-Pre 2.17 L FVC-%Pred-pre 61 % FEV1-Pre 1.61 L FEV1-%Pred-Pre 59 % [id number] 1.13 L/sec [id number]-%Pred-Pre 48 % VCSVC-Pre 2.08 L ICSVC-Pre 1.74 L ERVSVC-Pre 0.34 L PEF-Pre 266.3 L/min TGVPleth-Pre 2.76 L RVPleth-Pre 2.46 L RVPleth-%Pred-Pre 110 % TLCPleth-Pre 4.48 L TLCPleth-%Pred-Pre 81 % DLCOunc-Pred 22.36 ml/min/mmHg DLCOunc-Pre 11.17 ml/min/mmHg DLCOunc-%Pred-Pre 49 % DLCOunc-SD 3.75 ml/min/mmHg DLCOunc-LLN 14.86 ml/min/mmHg DLCOunc-ULN 29.86 ml/min/mmHg DLCOunc-#SD -2.985 ml/min/mmHg DLCOcor-Pred 22.36 ml/min/mmHg DLCOcor-Pre 14.17 ml/min/mmHg DLCOcor-%Pred-Pre 63 % DLCOcor-SD 3.75 ml/min/mmHg DLCOcor-LLN 14.86 ml/min/mmHg DLCOcor-ULN 29.86 ml/min/mmHg DLCOcor-#SD -2.183 ml/min/mmHg DLVA-Pred 4.24 ml/min/mmHg/L DLVA-Pre 3.07 ml/min/mmHg/L DLVA-%Pred-Pre 72 % DLVA-SD 0.80 ml/min/mmHg/L DLVA-LLN 2.64 ml/min/mmHg/L DLVA-ULN 5.84 ml/min/mmHg/L DLVA-#SD -1.465 ml/min/mmHg/L Narrative Clinical history:->mantle cell lymphoma s/p 7 month MSD. Increased O2 required BK VIRUS URINE (POLYOMAVIRUS) (01/17/2017 3:00 PM) Component Value Range BK Virus Urine Negative for BK Virus Bk Virus Urine Comment This assay uses analyte specific reagents to quantitate BK DNA in plasma or urine. It has not been cleared or approved by the [place] Food and Drug Administration. The performance characteristics were determined by the [facility]. Results should be correlated with clinical findings. Specimen Urine ASPERGILLUS (GALACTOMANNAN) AG (01/17/2017 12:30 PM) Component Value Range Aspergillus Galactomann 0.034Comment: AG Reference Value: Index value less than 0.5.- Interpretation:- Patients with an index value of greater than or equal to 0.5 are considered to be positive for galactomannan antigen.-The Platelia(TM) Aspergillus EIA package insert also recommends a new sample be collected from the patient for follow-up testing.-Patients with an index value of less than 0.5 are considered to be negative for galactomannan antigen.-A negative result may indicate that the patients result is below the detectable level of the assay.- Negative results do not rule out the diagnosis of Invasive Aspergillosis.-Pursuant to the package insert, repeat testing is recommended if the result is negative, but the disease is suspected. Due to the potential for environmental contamination when transferred to pour-off tubes, which can lead to false positive results, interpret positive results from samples provided in pour-off tubes with caution.-Results should be used in conjunction with clinical findings, and should not form the sole basis for a diagnosis or treatment decision.- The Platelia Aspergillus Galactomannan EIA is a product of [employer] and is FDA approved for in vitro diagnostic use. Testing Performed At: [facility] [address] [place] [address] [place] [address] CLIA ID: [id number] Specimen Blood FUNGITELL (01/17/2017 12:30 PM) Component Value Range Fungitell <31 Unit: pg/mL Interpretation: The Fungitell assay does not detect certain fungal species such as the genus Cryptococcus (Naseem et al. 1991) which produces very low levels of (1-3)-Hewl-I-Cscmpp. The assay also does not detect the Zygomycetes such as Absidia, Mucor and Rhizopus (Yohana et al. 1994) which are not known to produce (1-3)-Xuhq-L-Yfqvmb. In addition, the yeast phase of Blastomyces dermatitidis produces little (1-3)-Flua-N-Djnssh and may not be detected by the assay (Em et al. 2007). Reference Range: Less than 60 pg/mL. Glucan values of less than 60 pg/mL are interpreted as negative. Glucan values of 60 to 79 pg/mL are interpreted as indeterminate, and suggest a possible fungal infection. Additional sampling and testing of sera is required to interpret the results. Glucan values of greater than or equal to 80 pg/mL are interpreted as positive. Due to the potential for environmental contamination when transferred to pour-off tubes, which can lead to false positive results, interpret positive results from samples provided in pour-off tubes with caution.-Results should be used in conjunction with clinical findings, and should not form the sole basis for a diagnosis or treatment decision. Fungitell is FDA approved or cleared for in vitro diagnostic use. Testing Performed At: [facility] [address] [place], [place] [id number] CLIA ID: [id number] Specimen Blood SURGICAL PATHOLOGY (01/17/2017 12:26 PM) Component Value Range PATHOLOGY REPORT [facility] [email or web address] Zayda Baca MD, PhD, Director of Anatomic Pathology Department of Pathology and Laboratory Medicine [address] [place] [id number] Surgical Pathology Office: [phone] SURGICAL PATHOLOGY REPORT NAME: ASHLEY WOLFE SURG PATH #: [id number] MR #: [id number] SPECIMEN CLASS: SR BILLING #: [id number] ALT ID #: LOCATION: [id number] DATE OF PROCEDURE: 01/17/2017 AGE: 66 SEX: F DATE RECEIVED: 01/17/2017 : 1950 TIME RECEIVED: 12:26 PHYSICIAN: DANIEL LEE MD DATE OF REPORT: 01/23/2017 COPY TO: ELIZABETH RAYMOND MD DATE OF PRINTIN01/23/2017 ################################################## ###################### Final Diagnosis: A. 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 +++Electronically Signed Out By+++ gf/01/23/2017 Interpreted by: Stanley Lam MD, Attending Physician 01/23/2017 ################################################## ###################### Material Received: A: right medial knee History: A. DDX : GVHD >morbilliform drug Gross Description: A. Labeled "right medial knee" is a 1.0 x 0.8 x 0.1 cm shave, bisected, all in A1. (tn) trejo/01/17/2017 CELL COUNT W/DIFF-FLUIDS (01/16/2017 4:17 PM) Component Value Range White Blood Cells,Fluid 430 /UL Red Blood Cells,Fluid 650 /UL Segmented Neutrophils, 75 % Fluid Lymphocytes,Fluid 2 % Monocyte/Histo,Fluid 23 % Fluid Source BRONCHIAL ALVEOLAR LAVAGE Pathology ACUTE AND CHRONIC INFLAMMATION Interpretation,Fluid Pathologist Signature INTERPRETED BY CURTIS DIALLO M.D. By the PATH SIGNATURE ABOVE, I attest that I have personally formulated the final interpretation expressed in this report and that the above diagnosis is based upon my examination of the slides and/or other material indicated in this report. Specimen Fluid - Bronchial Alveolar Lavage RVP VIRAL PANEL PCR (01/16/2017 4:17 PM)Only the most recent of 2 results within the time period is included. Component Value Range Specimen Source NASAL WASH Adenovirus NOT DETECTED Coronavirus 229E NOT DETECTED Coronavirus HKU1 NOT DETECTED Coronavirus NL63 NOT DETECTED Coronavirus OC43 NOT DETECTED Human Metapneumovirus NOT DETECTED Human NOT DETECTED Rhinovirus/ENTEROVIRUS Influenza A H1N1 2009 NOT DETECTED Influenza A H1 NOT DETECTED Influenza A H3 NOT DETECTED Influenza B NOT DETECTED Parainfluenza 1 NOT DETECTED Parainfluenza 2 NOT DETECTED Parainfluenza 3 NOT DETECTED Parainfluenza 4 NOT DETECTED RSV NOT DETECTED Bordetella Pertussis NOT DETECTED Chlamydophila Pneumoniae NOT DETECTED Mycoplasma Pneumoniae NOT DETECTED Specimen Nasal Wash PJP JIROVECI QUANT PCR (01/16/2017 4:17 PM) Component Value Range PJP Jiroveci BAL PCR Not Detected Quant Unit: DNA copies/ml Assay Range: 84 copies/mL to 1x10e8 copies/mL Expected Value: Not Detected- The limit of quantitation (LOQ) is 84 copies/mL.- Pneumocystis jiroveci DNA detected below the LOQ will be reported as Detected: <84 copies/mL. This test was developed and its performance characteristics determined by [facility]. It has not been cleared or approved by the U.S. Food and Drug Administration.-Results should be used in conjunction with clinical findings, and should not form the sole basis for a diagnosis or treatment decision.- PCR tests are performed pursuant to a license agreement with [employer]. Testing Performed At: [facility] [address] [place] [address] [place] [address] CLIA ID: [id number] Specimen Bronchial Washing RUL ASPERGILLUS GALACTOMANN (01/16/2017 4:17 PM) Component Value Range Aspergillus Galactomann 0.135Comment: BAL Reference Value: Index value less than 0.5.- Interpretation:- Patients with an index value of greater than or equal to 0.5 are considered to be positive for galactomannan antigen.-The Platelia(TM) Aspergillus EIA package insert also recommends a new sample be collected from the patient for follow-up testing.-Patients with an index value of less than 0.5 are considered to be negative for galactomannan antigen.-A negative result may indicate that the patients result is below the detectable level of the assay.- Negative results do not rule out the diagnosis of Invasive Aspergillosis.-Pursuant to the package insert, repeat testing is recommended if the result is negative, but the disease is suspected. Due to the potential for environmental contamination when transferred to pour-off tubes, which can lead to false positive results, interpret positive results from samples provided in pour-off tubes with caution.-Results should be used in conjunction with clinical findings, and should not form the sole basis for a diagnosis or treatment decision.- The Platelia Aspergillus Galactomannan EIA is a product of [employer] and is FDA approved for in vitro diagnostic use. Testing Performed At: [facility] [place] [address] CLIA ID: [id number] Specimen Bronchial Washing RUL HERPES SIMPLEX PCR - NON-BLOOD (01/16/2017 4:17 PM) Component Value Range Specimen, Herpes BRONCHIAL ALVEOLAR LAVAGE Herpes Simplex PCR Negative for HSV-1 and 2 This assay uses analyte specific reagents to detect herpes simplex 1 and 2 DNA. It has not been cleared or approved by the US Food and Drug Administration. The performance characteristics were determined by the [facility]. Results should be correlated with clinical findings. Specimen Bronchial Alveolar Lavage CMV QUANT PCR-FLUID (01/16/2017 4:17 PM) Component Value Range Specimen, CMV BRONCHIAL ALVEOLAR LAVAGE CMV by PCR-fluid Negative for CMV CMV Comment-Fluid This assay uses analyte specific reagents to detect CMV DNA in plasma or fluid. It has not been cleared or approved by the US Food and Drug Administration. The performance characteristics were determined by the [facility]. Results should be correlated with clinical findings. Specimen Fluid - Bronchial Alveolar Lavage GRAM STAIN (01/16/2017 4:07 PM) Component Value Range Battery Name GRAM STAIN Specimen Description BRONCHIAL ALVEOLAR LAVAGE, RUL Special Requests NONE Gram Stain MODERATE NEUTROPHILS NO ORGANISMS SEEN Report Status FINAL 01/16/2017 Specimen Bronchial Alveolar Lavage,RUL CULTURE-RESP,LOWER W/SENSITIVITY (01/16/2017 4:07 PM) Component Value Range Battery Name LOWER RESP CULTURE Specimen Description BRONCHIAL ALVEOLAR LAVAGE, RUL Special Requests NONE Direct Gram Stain MODERATE NEUTROPHILS NO ORGANISMS SEEN Culture NO GROWTH 2 DAYS Report Status FINAL 01/19/2017 Specimen Bronchial Alveolar Lavage,RUL BRONCHOSCOPY (01/16/2017 3:38 PM) Component Value Range Provation Report Patient Name: Ashley Wolfe Procedure Date: 01/16/2017 3:38 PM CSN: [id number] Date of : 1950 Gender: Female Attending Physician: Janusz Aragon MD Procedure: Bronchoscopy Indications: Bilateral infiltrate Providers: Janusz Aragon MD (Doctor), WILLIAM Adkins (Fellow), Camila Bowen RN (Nurse), Sher Pantoja, Car Wash Attendant Automatic (Techn ician) Referring Physician: Elias Valente MD Medications: Tetricaine 0.25%/Epinephrine 0.003% 10 mL nebulizer, Tetric faith 0.25%/Epinephrine 0.003% topically on airway mucosa 10 mL, See the Anesthesia note for documentation of the administered medications Complications: No immediate complications Findings: The oropharynx appears normal. The larynx appears normal. The vocal cords appear normal. The subglottic space is normal. The trachea is of normal caliber. The maria fernanda is sharp. The tracheobronchial tree was examined to at least the first subsegmental level. Bronchial mucosa and anatomy are normal; there are no endobronchial lesions but thick purulent secretions noted in the airwai bilaterally. Bronchoalveolar lavage was performed in the RUL posterior segment (B2) of the lung and sent for cell count, bacterial culture, viral smears & culture, fungal & AFB analysis and cytology for immunocompromised host protocol. 150 mL of fluid were instilled. 100 mL were returned. The return was mucopurulent. Mucous plugs were present in the return fluid. Impression: - Mucupurulent secretions. - Bronchoalveolar lavage was performed. Estimated Blood Loss: Estimated blood loss: none. Recommendation: - Await BAL results. Scope In: 4:03:07 PM Scope Out: 4:07:08 PM Attending Participation: I was present and participated during the entire procedure, including non-gamez portions. MD Janusz Cameron MD 01/16/2017 5:15:29 PM The attending physician has electronically signed and finalized this document. WILLIAM Adkins MBBS 01/16/2017 5:09:55 PM Number of Addenda: 0 Note Initiated On: 01/16/2017 3:38 PM THYROID STIMULATING HORMONE-TSH (01/16/2017 11:57 AM)Only the most recent of 2 results within the time period is included. Component Value Range TSH 4.417 0.35-5.00 MCU/ML Specimen Blood NON-PAYMENT ANALYST CYTOLOGY (BODY FLUIDS/TISSUE) (01/16/2017 10:09 AM) Component Value Range Cytology [facility] [email or web address] Zayda Baca MD, Director Cytopathology Department of Pathology and Laboratory Medicine [address] [place] [phone] Office: [phone] CYTOLOGY REPORT NAME: ASHLEY WOLFE CYTOLOGY #: [id number] MR #: [id number] ALT ID #: BILLING #: [id number] LOCATION: DATE OF PROCEDURE: 01/16/2017 10:09 AGE: 66 SEX: F DATE RECEIVED: 01/17/2017 : 1950 TIME RECEIVED: 10:09 PHYSICIAN: JANUSZ ARAGON DATE OF REPORT: 01/20/2017 COPY TO: THIERRY KIMBALL DATE OF PRINTIN01/20/2017 HISTORY: Date of Last Menstrual Period: None Given Menstrual History: None Given Contraceptive History: None Given Cancer History: None Given Infection History: None Given Treatment History: None Given Other Clinical Conditions: None Given CLINICAL DIAGNOSIS: 66 year old woman with history of mantle cell lymphoma. MATERIAL RECEIVED: A: Bronchial Alveolar Lavage, RUL ################################################## ###################### Final Diagnosis: A. Bronchial Alveolar Lavage, RUL: Negative for malignant cells. The [place] stain is negative for Pneumocystis and other fungal organisms. Attestation: By this signature, I attest that I have personally formulated the final interpretation expressed in this report and that the above diagnosis is based upon my examination of the slides and/or other material indicated in this report. af01/17/2017 +++Electronically Signed Out By Mariella Solis M.D.+++ Cervical cytology is a SCREENING TEST primarily for detecting cancers and precancerous lesions. This screening test has a well documented false negative rate. Your patient's pap test results should be interpreted in conjunction with history and clinical findings. Reported using [employer] terminology. ################################################## ###################### CT CHEST WO CONTRAST (01/15/2017 2:38 PM) Impressions 1. Development of multiple new areas of mild, patchy alveolar opacities that is consistent with pneumonia 2.Unchanged trace right pleural effusion 3.Moderate compression deformity of L1 with slight further loss of vertebral body height. These findings were discussed with George Pedroza telephone at 3:12 PM January 15, 2017 Finalized by Italo Caal M.D. on 01/15/2017 3:13 PM. Dictated by Italo Caal M.D. on 01/15/2017 3:[address] CHEST Clinical Indication:Female, 66 years old. Hypoxia Technique: Multiple contiguous axial CT images were obtained through the chest without IV contrast. Post processing coronal and sagittal reconstruction images were made from the axial images. IV contrast: None. Comparison: CT January 10, 2017 FINDINGS: Evaluation of the mediastinum and kymberly, including the vasculature and for lymphadenopathy, is limited without the use of IV contrast. Lower Neck: Unremarkable Axilla, Mediastinum and Kymberly: Previous left axillary lymph node dissection. Several surgical clips are present in the mediastinum, just anterior to the trachea near the thoracic inlet. No axillary, mediastinal or definite hilar lymphadenopathy. Heart and Great Vessels: Upper limits of normal size heart.. No pericardial effusion. Normal caliber thoracic aorta. The tip of the right-sided port extends into the SVC. Airway, Lungs and Pleura: Unchanged miniscule right-sided pleural effusion. There are areas of mild linear and patchy atelectasis within both lung bases area there has been development of multiple mild patchy areas of alveolar type opacity scattered throughout both lungs. No pneumothorax. Upper Abdomen: The gallbladder is surgically absent. Unchanged mild choledocho ectasia. Chest Wall and Osseous Structures: There are multiple subacute appearing bilateral rib fracture deformities anteriorly that have not significantly changed. Partial visualization of orthopedic hardware involving the visualized right humerus as well as partial visualization of an associated old fracture deformity of the visualized humerus. Redemonstration of a moderate compression fracture deformity of the L1 vertebral body with slight further loss of vertebral body height. There is patchy sclerosis throughout this vertebral body suggesting osseous healing. Prior vertebral plasty at T11 and T12 with unchanged mild associated compression deformities. Procedure Note Interface, Radiant Results - Wed Jan 15, 2017 3:16 PM FIRE ENGINE OPERATOR CT CHEST Clinical Indication: Female, 66 years old. Hypoxia Technique: Multiple contiguous axial CT images were obtained through the chest without IV contrast. Post processing coronal and sagittal reconstruction images were made from the axial images. IV contrast: None. Comparison: CT January 10, 2017 FINDINGS: Evaluation of the mediastinum and kymberly, including the vasculature and for lymphadenopathy, is limited without the use of IV contrast. Lower Neck: Unremarkable Axilla, Mediastinum and Kymberly: Previous left axillary lymph node dissection. Several surgical clips are present in the mediastinum, just anterior to the trachea near the thoracic inlet. No axillary, mediastinal or definite hilar lymphadenopathy. Heart and Great Vessels: Upper limits of normal size heart.. No pericardial effusion. Normal caliber thoracic aorta. The tip of the right-sided port extends into the SVC. Airway, Lungs and Pleura: Unchanged miniscule right-sided pleural effusion. There are areas of mild linear and patchy atelectasis within both lung bases area there has been development of multiple mild patchy areas of alveolar type opacity scattered throughout both lungs. No pneumothorax. Upper Abdomen: The gallbladder is surgically absent. Unchanged mild choledocho ectasia. Chest Wall and Osseous Structures: There are multiple subacute appearing bilateral rib fracture deformities anteriorly that have not significantly changed. Partial visualization of orthopedic hardware involving the visualized right humerus as well as partial visualization of an associated old fracture deformity of the visualized humerus. Redemonstration of a moderate compression fracture deformity of the L1 vertebral body with slight further loss of vertebral body height. There is patchy sclerosis throughout this vertebral body suggesting osseous healing. Prior vertebral plasty at T11 and T12 with unchanged mild associated compression deformities. IMPRESSION 1. Development of multiple new areas of mild, patchy alveolar opacities that is consistent with pneumonia 2. Unchanged trace right pleural effusion 3. Moderate compression deformity of L1 with slight further loss of vertebral body height. These findings were discussed with KESHA Pedroza by telephone at 3:12 PM January 15, 2017 Finalized by Italo Caal M.D. on 01/15/2017 3:13 PM. Dictated by Italo Caal M.D. on 01/15/2017 3:01 PM. EXERCISE OXIMETRY-SCAN (01/15/2017 2:34 PM) Narrative Ordered by an unspecified provider. SLEEP STUDY-SCAN (01/15/2017 2:33 PM) Narrative Ordered by an unspecified provider. PROTIME INR (PT) (01/15/2017 1:50 PM) Component Value Range INR 0.9 0.8-1.2 Specimen Blood PTT (APTT) (01/15/2017 1:50 PM) Component Value Range APTT 25.1 24.0-40.0 SEC Specimen Blood D-DIMER (01/15/2017 1:50 PM) Component Value Range D-Dimer 1757 (H)Comment: <230 ng/mL DDU The D-dimer cut off value for deep vein thrombosis and pulmonary embolism is 230 ng/mL DDU. Specimen Blood FIBRINOGEN (01/15/2017 1:50 PM) Component Value Range Fibrinogen 583 (H) 200-400 MG/DL Specimen Blood BNP (B-TYPE NATRIURETIC PEPTI) (01/15/2017 1:50 PM)Only the most recent of 2 results within the time period is included. Component Value Range B Type Natriuretic 399.0 (H) 0-100 PG/ML Peptide Specimen Blood SLEEP STUDY-SCAN (01/14/2017 2:47 PM) Narrative Ordered by an unspecified provider. TYPE & CROSSMATCH (01/14/2017 10:02 AM)Only the most recent of 2 results within the time period is included. Component Value Range Units Ordered 1 Crossmatch Expires 01/17/2017 Record Check FOUND ABO/RH(D) O POS Antibody Screen POS CONSISTENT WITH HISTORICAL ANTIBODY Unit Number [id number] Blood Component Type RBC,ADSOL,LEUKO REDUCED,IRRADIATED Unit Division 0 Status OF Unit TRANSFUSED Transfusion Status OK TO TRANSFUSE Crossmatch Result COMPATIBLE, GEL Antigen Type (Units) [place] antigen NEG, Specimen Blood METHEMOGLOBIN (01/13/2017 6:05 PM) Component Value Range Methemoglobn 3.8 (H) <1.5 % Specimen Blood UA REFLEX CULTURE LABEL (01/13/2017 3:29 PM) Component Value Range UA Reflex Culture LAB LABEL Specimen Urine URINALYSIS MICROSCOPIC REFLEX TO CULTURE (01/13/2017 3:29 PM) Component Value Range WBCs,UA PACKED 0-2 /HPF RBCs,UA 10-20 0-3 /HPF Comment,UA Urine submitted for reflex culture if criteria are met:WBC>10, positive nitrite and/or positive leukocyte esterase. If quantity is not sufficient, an addendum will follow. MucousUA 1+ Bacteria,UA MODERATE (A) NEG-NEG Squamous Epithelial Cells 2-5 0-5 Hyaline Cast 5-10 Transitional Epithelial 0-2 Specimen Urine URINALYSIS DIPSTICK REFLEX TO CULTURE (01/13/2017 3:29 PM) Component Value Range Color,UA GIOVANNY Turbidity,UA 2+ (A) CLEAR-CLEAR Specific [place]-Urine 1.018 1.003-1.035 pH,UA 5.0 5.0-8.0 Protein,UA 2+ (A) NEG-NEG Glucose,UA NEG NEG-NEG Ketones,UA NEG NEG-NEG Bilirubin,UA NEG NEG-NEG Blood,UA 1+ (A) NEG-NEG Urobilinogen,UA NORMAL NORM-NORMAL Nitrite,UA NEG NEG-NEG Leukocytes,UA 2+ (A) NEG-NEG Urine Ascorbic Acid, UA NEG NEG-NEG Specimen Urine CULTURE-URINE W/SENSITIVITY (01/13/2017 3:29 PM) Component Value Range Battery Name URINE CULTURE Specimen Description URINE Special Requests NONE Culture <100,000 organisms/ml ENTEROCOCCUS FAECALIS (A) Report Status FINAL 01/15/2017 Organism ID <100,000 organisms/ml ENTEROCOCCUS FAECALIS Specimen Urine Organism Antibiotic Method Susceptibility <100,000 organisms/ml enterococcus Ampicillin IVAN 1 SUSCEPTIBLE: faecalis (MCG/ML) Susceptible INTERPRETA TION <100,000 organisms/ml enterococcus Vancomycin IVAN 1 SUSCEPTIBLE: faecalis (MCG/ML) Susceptible INTERPRETA TION <100,000 organisms/ml enterococcus Levofloxacin IVAN <=0.5 SUSCEPTIBLE: faecalis (MCG/ML) Susceptible INTERPRETA TION <100,000 organisms/ml enterococcus Nitrofurantoin IVAN <=16 SUSCEPTIBLE: faecalis (MCG/ML) Susceptible INTERPRETA TION <100,000 organisms/ml enterococcus Tetracycline IVAN >8 RESISTANT: Resistant faecalis (MCG/ML) INTERPRETA TION <100,000 organisms/ml enterococcus Daptomycin IVAN 2 SUSCEPTIBLE: faecalis (MCG/ML) Susceptible INTERPRETA TION <100,000 organisms/ml enterococcus Method IVAN IVAN (MCG/ML) faecalis (MCG/ML) INTERPRETATION INTERPRETA TION CT HEAD WO CONTRAST (01/13/2017 1:52 AM) Impressions 1.No acute intracranial hemorrhage or calvarial fracture. Small posterior scalp contusion is noted at the vertex. 2.Development of bilateral ethmoid and sphenoid mucosal sinus disease. There are also minimal bilateral mastoid effusions, greater on the left. By my electronic signature, I attest that I have personally reviewed the images for this examination and formulated the interpretations and opinions expressed in this report Finalized by Vaibhav Jo M.D. on 01/13/2017 2:10 AM. Dictated by Sandrine Minaya M.D. on 01/13/2017 1:[address] HEAD HISTORY: HEAD INJURY MODERATE OR SEVERE ACUTE, STABLE, fall. TECHNIQUE: Multiple contiguous axial images were obtained of the head without IV contrast. Post processing coronal reconstruction images were made from the axial images. COMPARISON: CT head August 29, 2016, MRI head July 11, 2016 FINDINGS: The ventricles are stable in size.Patient's known minimal white matter disease on prior MRI is not well appreciated by CT. The murillo white matter interfaces are maintained. No midline shift or mass effect.Basal cisterns are patent. There is no acute intracranial hemorrhage or extra-axial fluid collection. Development of mild to moderate mucosal thickening of the ethmoid and sphenoid sinuses as well as minimal fluid within bilateral mastoid air cells , slightly greater on the left. The calvarium is intact. There is a small posterior scalp contusion at the posterior vertex. Procedure Note Interface, Radiant Results - FriJan 13, 2017 2:13 AM FIRE ENGINE OPERATOR CT HEAD HISTORY: HEAD INJURY MODERATE OR SEVERE ACUTE, STABLE, fall. TECHNIQUE: Multiple contiguous axial images were obtained of the head without IV contrast. Post processing coronal reconstruction images were made from the axial images. COMPARISON: CT head August 29, 2016, MRI head July 11, 2016 FINDINGS: The ventricles are stable in size. Patient's known minimal white matter disease on prior MRI is not well appreciated by CT. The murillo white matter interfaces are maintained. No midline shift or mass effect. Basal cisterns are patent. There is no acute intracranial hemorrhage or extra-axial fluid collection. Development of mild to moderate mucosal thickening of the ethmoid and sphenoid sinuses as well as minimal fluid within bilateral mastoid air cells , slightly greater on the left. The calvarium is intact. There is a small posterior scalp contusion at the posterior vertex. IMPRESSION 1. No acute intracranial hemorrhage or calvarial fracture. Small posterior scalp contusion is noted at the vertex. 2. Development of bilateral ethmoid and sphenoid mucosal sinus disease. There are also minimal bilateral mastoid effusions, greater on the left. By my electronic signature, I attest that I have personally reviewed the images for this examination and formulated the interpretations and opinions expressed in this report Finalized by Vaibhav Jo M.D. on 01/13/2017 2:10 AM. Dictated by Sandrine Minaya M.D. on 01/13/2017 1:54 AM. CTA CHEST WO/W CONTRAST+POST IMPRESSION (01/10/2017 3:45 PM) Impressions 1. Mild cardiomegaly with development of findings of mild CHF and trace right pleural effusion. 2. Patchy lower lung consolidations, right great than left. This may represent atelectasis and/or pneumonia. This can also be an additional manifestation of CHF. Finalized by Janusz Reyes M.D. on 01/10/2017 3:56 PM. Dictated by Janusz Reyes M.D. on 01/10/2017 3:49 PM. Narrative CTA Chest Clinical Indication: Concern for pulmonary embolism. Lymphoma. Technique: Multiple contiguous axial CT images were obtained through the chest with contrast. 70 ml of Isovue-370 was given intravenously. Image postprocessing was obtained according to the PE protocol. Comparison: October 23, [address] Findings: A right IJ chest port remains in place. Clips are seen in the lower neck. Axilla, Mediastinum and Kymberly: No lymphadenopathy. Heart and Great Vessels: There are no filling defects in the pulmonary arteries identified to suggest pulmonary embolism. The heart size is mildly enlarged.There is no pericardial effusion. Lungs and Pleura: There is mild diffuse pulmonary vascular congestion and interstitial edema. Patchy consolidation is seen in the lower lungs, right greater than left. There is a trace right pleural effusion. Chest Wall and Osseous Structures: Vertebral plasty changes and mild compression deformities are again seen at T11 and T12. There is been interval development of moderate compression deformity of L1. Visualized Upper Abdomen: Choledocho ectasia is partially visualized, better evaluated on abdominal CT of December 25, 2016.. Procedure Note Interface, Radiant Results - FriJan 10, 2017 3:59 PM FIRE ENGINE OPERATOR CTA Chest Clinical Indication: Concern for pulmonary embolism. Lymphoma. Technique: Multiple contiguous axial CT images were obtained through the chest with contrast. 70 ml of Isovue-370 was given intravenously. Image postprocessing was obtained according to the PE protocol. Comparison: October 23, [address] Findings: A right IJ chest port remains in place. Clips are seen in the lower neck. Axilla, Mediastinum and Kymberly: No lymphadenopathy. Heart and Great Vessels: There are no filling defects in the pulmonary arteries identified to suggest pulmonary embolism. The heart size is mildly enlarged.There is no pericardial effusion. Lungs and Pleura: There is mild diffuse pulmonary vascular congestion and interstitial edema. Patchy consolidation is seen in the lower lungs, right greater than left. There is a trace right pleural effusion. Chest Wall and Osseous Structures: Vertebral plasty changes and mild compression deformities are again seen at T11 and T12. There is been interval development of moderate compression deformity of L1. Visualized Upper Abdomen: Choledocho ectasia is partially visualized, better evaluated on abdominal CT of December 25, 2016.. IMPRESSION 1. Mild cardiomegaly with development of findings of mild CHF and trace right pleural effusion. 2. Patchy lower lung consolidations, right great than left. This may represent atelectasis and/or pneumonia. This can also be an additional manifestation of CHF. Finalized by Janusz Reyes M.D. on 01/10/2017 3:56 PM. Dictated by Janusz Reyes M.D. on 01/10/2017 3:49 PM. CYTOGENETICS SCAN (01/10/2017 2:26 PM)Only the most recent of 2 results within the time period is included. Narrative Ordered by an unspecified provider. IR CENTRAL VENOUS CATHETER (01/06/2017 4:06 PM) Impressions Uneventful removal of tunneled trifusion catheter as described. Approved by Margaret Ervin APRN on 01/09/2017 10:38 AM By my electronic signature, I attest that I have personally reviewed the images for this examination and formulated the interpretations and opinions expressed in this report Finalized by Abad Muse M.D. on 01/09/2017 10:44 AM. Dictated by Margaret Ervin APRN on 01/09/2017 10:36 AM. Narrative TUNNELED CATHETER REMOVAL CLINICAL INDICATION:Completion of Therapy ATTENDING PROVIDER:Abad Muse M.D. ANESTHESIA: 10 mL % lidocaine subcutaneous CATHETER SITE:Left internal jugular vein TECHNIQUE: Michel Arevalo M.D, the attending radiologist, was present for the critical and gamez portions of the procedure with a midlevel, resident, and/or fellow participating.Overlapping portions were non gamez and I was immediately available.I interpret the critical and gamez portion of this procedure to have been needle access. The risks, benefits, and alternatives to the procedure were explained to the patient.The existing catheter was prepped and draped in sterile fashion. 2% lidocaine with epinephrine was injected into the skin at the catheter exit site and up to the antimicrobial cuff. Using blunt dissection, the cuff was dissected free. The catheter was removed, and hemostasis achieved with manual compression at both the venotomy and dermatotomy sites. A sterile, occlusive dressing was placed at the tunnel exit site.The procedure was well tolerated, and the patient discharged to the holding area in satisfactory condition. FINDINGS: 1. There is no gross evidence for tunnel tract or exit site infection. 2. The catheter cuff is intact and completely removed. Procedure Note Interface, Radiant Results - [facility] Jan 09, 2017 10:47 AM FIRE ENGINE OPERATOR TUNNELED CATHETER REMOVAL CLINICAL INDICATION: Completion of Therapy ATTENDING PROVIDER: Abad Muse M.D. ANESTHESIA: 10 mL % lidocaine subcutaneous CATHETER SITE: Left internal jugular vein TECHNIQUE: Michel Arevalo M.D, the attending radiologist, was present for the critical and gamez portions of the procedure with a midlevel, resident, and/or fellow participating. Overlapping portions were non gamez and I was immediately available. I interpret the critical and gamez portion of this procedure to have been needle access. The risks, benefits, and alternatives to the procedure were explained to the patient. The existing catheter was prepped and draped in sterile fashion. 2% lidocaine with epinephrine was injected into the skin at the catheter exit site and up to the antimicrobial cuff. Using blunt dissection, the cuff was dissected free. The catheter was removed, and hemostasis achieved with manual compression at both the venotomy and dermatotomy sites. A sterile, occlusive dressing was placed at the tunnel exit site. The procedure was well tolerated, and the patient discharged to the holding area in satisfactory condition. FINDINGS: 1. There is no gross evidence for tunnel tract or exit site infection. 2. The catheter cuff is intact and completely removed. IMPRESSION Uneventful removal of tunneled trifusion catheter as described. Approved by Margaret Ervin APRN on 01/09/2017 10:38 AM By my electronic signature, I attest that I have personally reviewed the images for this examination and formulated the interpretations and opinions expressed in this report Finalized by Abad Muse M.D. on 01/09/2017 10:44 AM. Dictated by Margaret Ervin APRN on 01/09/2017 10:36 AM. BONE MARROW (01/01/2017 1:22 PM) Component Value Range PATHOLOGY REPORT [facility] [email or web address] Zayda Baca MD, PhD, Director of Anatomic Pathology Department of Pathology and Laboratory Medicine [address] [place] [id number] Surgical Pathology Office: [phone] SURGICAL PATHOLOGY REPORT NAME: ASHLEY WOLFE SURG PATH #: [id number] MR #: [id number] ALT ID #: LOCATION: IR DATE OF PROCEDURE: 01/01/2017 AGE: 66 SEX: F DATE RECEIVED: 01/01/2017 : 1950 TIME RECEIVED: 13:22 PHYSICIAN: VICKI KIMBALL DATE OF REPORT: 01/02/2017 COPY TO: DATE OF PRINTIN01/02/2017 ################################################## ###################### Final Diagnosis: Bone marrow, left iliac crest, aspirate, biopsy, clot, and touch prep: Hypocellular marrow (20-30%), with decreased granulopoiesis and decreased megakaryopoiesis. Negative for lymphoma. Peripheral blood smear: Macrocytic anemia, mild leukopenia with absolute lymphopenia and thrombocytopenia. Attestation: By this signature, I attest that I have personally formulated the final interpretation expressed in this report and that the above diagnosis is based upon my examination of the slides and/or other material indicated in this report. +++Electronically Signed Out+++ la01/01/2017 Interpreted by: Jasmyne Yap MD, Attending Physician Cr Allan D.O. Resident Material Received: A: right bone marrow clot B: right bone marrow biopsy History: 66 year old female with a history of mantle cell lymphoma. Gross Description: A. Received in Zinc formalin labeled "bone marrow clot right" is a 1.8 x 1.2 x 0.6 cm aggregate of friable red-brown clotted blood elements. The specimen is entirely submitted in cassette A1. (tn) B. Received in Zinc formalin labeled "bone marrow biopsy right" is a 1.3 cm in length and 0.2 cm in diameter cylindrical, yellow-trejo firm piece of tissue. The specimen is submitted in cassette B1 after decalcification. (tn) 01/01/2017 Cr Allan D.O. Reside Microscopic Description: CBC Data: HGB 9.2 (g/dL); RBC 2.68 (m/uL); MCV 105.1 ([place]); RDW 22.2 (%); WBC 3.3 (k/uL); PLT 53 (k/uL). Blood Smear Diff (%): Segmented neutrophils 68; band neutrophils 4; lymphocytes 13; monocytes 13; eosinophils 2 Blood Smear Morphology: RBC: Macrocytic anemia and anisocytosis WBC: Absolute lymphopenia Platelets: Moderate thrombocytopenia Bone Marrow Aspirate/Touch Prep Morphology: Aspirate Adequacy: Adequate Touch Prep Adequacy: Adequate Cellularity: Decreased Megakaryocytes: Decreased Blasts: Normal Erythroid: Normal Granulocytes: Decreased granulopoiesis with normal morphology Lymphocytes: Normal Plasma Cells: Normal Bone Marrow Differential Cell Count (%): Blasts: <1 Promyelocytes: 1 Myelocytes: 3 Metamyelocytes: 7 Segs/Bands: 22 Eosinophils: 2 Erythroid: 55 Monocytes: 1 Lymphocytes: 9 Plasma cells: 0 M:E ratio: 0.6 Bone Marrow Core Biopsy: Adequacy: Nearly inadequate due to extensive aspiration artifact Length: 1.4 cm Cellularity: cannot assess Bone Marrow Cell Clot: Adequacy: Adequate Cellularity: 20-30% Megakaryocytes: Present but mild to moderately decreased Pertinent Findings: Resembles core aspirate; no lymphoid aggregates Additional Stains: Iron Stain: Not Performed Immunohistochemistry: Not Performed Chromogenic In Situ Hybridization: Not Performed Other Special Stains: Not Performed Ancillary Studies: Flow Cytometry: Performed, See separate report ([id number]) which shows a negative immunophenotypic study Cytogenetics: Performed, See separate report Fluorescence In Situ Hybridization: Performed, See separate report Molecular Genetics: Not Performed Preliminary Diagnosis: Not Performed If immunohistochemical stains and/or in situ hybridization are cited in this report, the performance characteristics were determined by the Department of Pathology and Laboratory Medicine of the [facility] ([employer]) in compliance with CLIA'88 regulations. Some of these tests rely on the use of "analyte specific reagents" and are subject to specific labeling requirements by the FDA. Known positive and negative control tissues demonstrate appropriate staining. This testing was developed by the Department of Pathology and Laboratory Medicine of the [facility]. It has not been cleared or approved by the FDA. The FDA has determined that such clearance or approval is not necessary. IR BONE MARROW BIOPSY (01/01/2017 1:10 PM) Impressions Successful fluoroscopically guided bone marrow aspirate and bone marrow biopsy as described. Pathologic interpretation pending. Finalized by Flash Gates M.D. on 01/02/2017 2:45 PM. Dictated by Flash Gates M.D. on 01/02/2017 2:44 PM. Narrative Bone marrow aspiration, bone marrow biopsy with imaging guidance: History: Bone marrow transplant. Technique and Findings: The procedure including risks, alternatives and benefits was explained to the patient. The patient provided written and verbal consent. The patient was placed prone on the exam table. The pelvis was prepped in and draped sterilely. 1% lidocaine was used to anesthetize the local soft tissues. First a 13-gauge bone biopsy trocar was advanced from the skin into the right posterior superior iliac spine under fluoroscopic guidance. The trocar was advanced through the cortex into the marrow space. A series of 3 bone marrow aspirates were obtained and immediately given to a bone marrow technologist for analysis. The technologist indicated that the sample was of adequate diagnostic quality. Next 1 core sample(s) was obtained with a 13-gauge core needle. The samples were withdrawn and given to the bone marrow technologist for direct visualization and adequacy. The technologist indicated that the sample was of adequate diagnostic quality. The needles were withdrawn. Pressure was applied on the left posterior superior iliac spine for 5 minutes. Hemostasis was achieved. A sterile dressing was applied. The patient tolerated procedure well and left department in stable condition. Total absorbed x-ray dose: 5 mGy Sedation: 1 mg IV Versed, 50 micrograms IV fentanyl Procedure Note Interface, Radiant Results - [facility] Jan 02, 2017 2:48 PM FIRE ENGINE OPERATOR Bone marrow aspiration, bone marrow biopsy with imaging guidance: History: Bone marrow transplant. Technique and Findings: The procedure including risks, alternatives and benefits was explained to the patient. The patient provided written and verbal consent. The patient was placed prone on the exam table. The pelvis was prepped in and draped sterilely. 1% lidocaine was used to anesthetize the local soft tissues. First a 13-gauge bone biopsy trocar was advanced from the skin into the right posterior superior iliac spine under fluoroscopic guidance. The trocar was advanced through the cortex into the marrow space. A series of 3 bone marrow aspirates were obtained and immediately given to a bone marrow technologist for analysis. The technologist indicated that the sample was of adequate diagnostic quality. Next 1 core sample(s) was obtained with a 13-gauge core needle. The samples were withdrawn and given to the bone marrow technologist for direct visualization and adequacy. The technologist indicated that the sample was of adequate diagnostic quality. The needles were withdrawn. Pressure was applied on the left posterior superior iliac spine for 5 minutes. Hemostasis was achieved. A sterile dressing was applied. The patient tolerated procedure well and left department in stable condition. Total absorbed x-ray dose: 5 mGy Sedation: 1 mg IV Versed, 50 micrograms IV fentanyl IMPRESSION Successful fluoroscopically guided bone marrow aspirate and bone marrow biopsy as described. Pathologic interpretation pending. Finalized by Flash Gates M.D. on 01/02/2017 2:45 PM. Dictated by Flash Gates M.D. on 01/02/2017 2:44 PM. FLOW CYTOMETRY (01/01/2017 1:06 PM) Component Value Range PATHOLOGY REPORT [facility] [email or web address] Jasmyne Yap MD, Director of Clinical Laboratory Marvin Joseph MD, Director of Flow Cytometry Laboratory Department of Pathology and Laboratory Medicine [address] [place] [id number] Surgical Pathology Office: [phone] FLOW CYTOMETRY REPORT NAME: ASHLEY WOLFE SURG PATH #: [id number] MR #: [id number] SPECIMEN CLASS: LC BILLING #: [id number] ALT ID #: LOCATION: DATE OF PROCEDURE: 01/01/2017 AGE: 66 SEX: F DATE RECEIVED: 01/01/2017 : 1950 TIME RECEIVED: 14:12 PHYSICIAN: VICKI KIMBALL DATE OF REPORT: 01/02/2017 COPY TO: DATE OF PRINTIN01/02/2017 Material Received: A: Bone Marrow History: 66 year old female with a history of mantle cell lymphoma. ################################################## ###################### Final Diagnosis: Bone marrow: flow cytometry: Negative immunophenotypic study. Interpretation: Lymphocytes comprise 13% of total events. The majority are T cells with a mildly decreased CD4:CD8 ratio and normal antigen expression. B cells are absent. There is no immunophenotypic evidence of non-Hodgkin lymphoma. Attestation: By this signature, I attest that I have personally formulated the final interpretation expressed in this report and that the above diagnosis is based upon my examination of the slides and/or other material indicated in this report. +++Electronically Signed Out By+++ njr/01/01/2017 Interpreted by: Jasmyne Yap MD, Attending Physician Stephanie Colindres M.D. Resident 01/02/2017 ################################################## ###################### Lab Data: Flow Cytometry - Lymphoma (B and T Cell) MRD Panel Analytic sensitivity of the lower detection limit in this assay is 0.01% B Cell Associated Markers (% Positive Cells): CD19=0; CD20=0; Natural Steps=0; Lambda=0; Natural Steps:Lambda ratio=na T Cell Associated Markers (% Positive Cells): CD2=93; CD3=78; CD4=24; CD5=78; CD7=90; CD8=62; CD4:CD8 ratio=0.4 Miscellaneous Markers (% Positive Cells): CD10=0; CD38=79; PW75=704; CD56=27 Cell Viability (%): na Number of Cells Analyzed: [id number] Total Number of Markers: 16 Summary of Marker Combinations: Natural Steps/Lambda/5/10/19/45/38/20; 2/7/5/3/4/45/56/8 This test was developed and its performance characteristics determined by the [facility] Flow Cytometry Laboratory. It has not been cleared or approved by the U.S. Food and Drug Administration (FDA). The FDA has determined that such clearance or approval is not necessary. BONE MARROW BIOPSY IR (01/01/2017 1:06 PM) Component Value Range Bone Marrow BX IR SEE PATHOLOGY REPORT CHROMOSOMES FISH DNA PROBE (01/01/2017 1:06 PM) Component Value Range Chromosomes Fish DNA SEE FLEXO PRESS OPERATOR FOR REPORT Probe Specimen Bone Marrow CHROMOSOMES BONE MARROW (01/01/2017 1:06 PM) Component Value Range Chromosomes Bone Marrow SEE FLEXO PRESS OPERATOR FOR REPORT Specimen Bone Marrow LEUKEMIA/LYMPHOMA PNL, BONE MARROW (01/01/2017 1:06 PM) Component Value Range Leuk/Lymph Interpretation SEE PATHOLOGY REPORT Specimen/LLM BONE MARROW Specimen Bone Marrow BONE MARROW ASP (01/01/2017 1:06 PM) Component Value Range Bone Marrow Asp SEE PATHOLOGY REPORT Specimen Bone Marrow NM PET SCAN TORSO (SKULL-THIGHS) (01/01/2017 11:02 AM) Impressions 1. No hypermetabolic mass or lymphadenopathy identified. Deauville score 1. Approved by Eliud Millard M.D. on 01/01/2017 11:33 AM By my electronic signature, I attest that I have personally reviewed the images for this examination and formulated the interpretations and opinions expressed in this report Finalized by Flash Gates M.D. on 01/01/2017 11:40 AM. Dictated by Eliud Millard M.D. on 01/01/2017 11:23 AM. Narrative PET/CT NECK, CHEST, ABDOMEN AND PELVIS RADIOPHARMACEUTICAL:17 mCi F-18 Fluorodeoxyglucose (FDG) IV. TECHNIQUE:Beginning approximately 60 minutes after tracer administration, routine whole body PET/CT imaging was performed from the level of the base of the skull to the upper thighs.PET images were reviewed in standard orthogonal projections.Low dose non-contrast CT imaging was performed for attenuation correction and localization purposes. 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 COMPARISON: PET/CT 10/21/2016 FINDINGS: The current mean hepatic SUV is 2.53, maximum 3.48.Previous mean 2.63, maximum 4.08. The current mediastinal blood pool SUV is 1.93, maximum 3.04. Previous mean 2.13 , maximum 2.53. Head/Neck: No suspicious hypermetabolic lesions are identified in these regions. There is uptake in the neck muscles, likely related to muscle strain. There is symmetric uptake in the thyroid. Chest: No suspicious hypermetabolic lesions are identified within the chest. Abdomen/Pelvis: No suspicious hypermetabolic lesions are seen within the abdomen or pelvis. Physiological activity is noted within the kidneys and bladder. Osseous Structures: No suspicious hypermetabolic osseous lesions are seen. There is degenerative uptake in the right shoulder, lumbar spine, SI joints, and tubing symphysis. Additional significant low dose CT findings: Right IJ chest port remains in similar position. There is mild cardiomegaly. There has been resolution of previously identified left upper lobe pneumonitis. There is mild dependent atelectasis and scarring in the lung bases. Prior cholecystectomy. Occasional colonic diverticula. Prior hysterectomy. Lumbar spondylosis. Prior lower lumbar laminectomies. The uncorrected PET images demonstrate no additional abnormality. Procedure Note Interface, Radiant Results - FriJan 01, 2017 11:43 AM FIRE ENGINE OPERATOR PET/CT NECK, CHEST, ABDOMEN AND PELVIS RADIOPHARMACEUTICAL: 17 mCi F-18 Fluorodeoxyglucose (FDG) IV. TECHNIQUE: Beginning approximately 60 minutes after tracer administration, routine whole body PET/CT imaging was performed from the level of the base of the skull to the upper thighs. PET images were reviewed in standard orthogonal projections. Low dose non-contrast CT imaging was performed for attenuation correction and localization purposes. 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 COMPARISON: PET/CT 10/21/2016 FINDINGS: The current mean hepatic SUV is 2.53, maximum 3.48. Previous mean 2.63, maximum 4.08. The current mediastinal blood pool SUV is 1.93, maximum 3.04. Previous mean 2.13 , maximum 2.53. Head/Neck: No suspicious hypermetabolic lesions are identified in these regions. There is uptake in the neck muscles, likely related to muscle strain. There is symmetric uptake in the thyroid. Chest: No suspicious hypermetabolic lesions are identified within the chest. Abdomen/Pelvis: No suspicious hypermetabolic lesions are seen within the abdomen or pelvis. Physiological activity is noted within the kidneys and bladder. Osseous Structures: No suspicious hypermetabolic osseous lesions are seen. There is degenerative uptake in the right shoulder, lumbar spine, SI joints, and tubing symphysis. Additional significant low dose CT findings: Right IJ chest port remains in similar position. There is mild cardiomegaly. There has been resolution of previously identified left upper lobe pneumonitis. There is mild dependent atelectasis and scarring in the lung bases. Prior cholecystectomy. Occasional colonic diverticula. Prior hysterectomy. Lumbar spondylosis. Prior lower lumbar laminectomies. The uncorrected PET images demonstrate no additional abnormality. IMPRESSION 1. No hypermetabolic mass or lymphadenopathy identified. Deauville score 1. Approved by Eliud Millard M.D. on 01/01/2017 11:33 AM By my electronic signature, I attest that I have personally reviewed the images for this examination and formulated the interpretations and opinions expressed in this report Finalized by Flash Gates M.D. on 01/01/2017 11:40 AM. Dictated by Eliud Millard M.D. on 01/01/2017 11:23 AM. 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 All other common clinically significant alloantibodies were ruled out. K negative, antihuman globulin crossmatch compatible red blood cells will be provided. 91% of the general donor population (banked blood) is compatible (K negative) with the presence of this antibody. Pathologist Signature, INTERPRETED BY WIN CARRILLO M.D. Antibody Consult By the PATH SIGNATURE ABOVE, I attest that I have personally formulated the final interpretation expressed in this report and that the above diagnosis is based upon my examination of the slides and/or other material indicated in this report. TACROLIMUS LEVEL([id number]) (12/26/2016 7:59 AM)Only the most recent of 7 results within the time period is included. Component Value Range Tacrolimus 4.8 NG/ML Specimen Blood CT ABD/PELV W CONTRAST (12/25/2016 7:29 PM) Impressions 1. No inflammatory mass, ascites or bowel obstruction. 2.Tiny hepatic segment 7 lesion that most likely represents a cyst. 3.Diffuse pelvic floor laxity with a rectocele. 4.Subacute-appearing mild to moderate compression fracture deformity of L1 that is new since November 04, 2016.There are also subacute appearing bilateral sacral insufficiency fractures, right superior and inferior pubic rami fractures, and compression deformity of the S2 vertebra Finalized by Italo Caal M.D. on 12/26/2016 7:34 AM. Dictated by Italo Caal M.D. on 12/26/2016 7:[address] ABDOMEN AND PELVIS Clinical Indication:Female, 66 years old. Worsening abdominal pain. 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 Technique:Multiple contiguous axial images were obtained through the abdomen and pelvis following the administration of IV contrast material. Portal venous and delayed imaging was obtained. Post processing coronal and sagittal reconstruction images were made from the axial images. IV contrast: Isovue-370 Bowel contrast:Yes Comparison: Chest CT October 23, 2016.CTAC images from the PET exam of Dece [email or web address].Plain film exams of the lumbar spine November 04, 2016. FINDINGS: Lower Thorax: The tip of a central venous catheter terminates within the right atrium. There are a few areas of very minimal linear atelectasis or scarring in the lung bases. Liver and Biliary system: The liver is normal in size. Within hepatic segment 7 (series 3 image 13) there is a 0.3 cm hypodense lesion that is too small to characterize though likely an incidental cyst. Prior cholecystectomy. 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 Spleen: Unremarkable. Adrenal Glands and Kidneys: Both adrenal glands are normal. There are several tiny subcentimeter hypodense lesions scattered throughout the kidneys that are too small to accurately characterize though likely represent incidental cysts. Incidental note is made of a circumaortic left renal vein. Pancreas and Retroperitoneum: There is unchanged diffuse parenchymal atrophy of the pancreas. No retroperitoneal lymphadenopathy or fluid collection. Aorta and Major Vessels: Normal caliber abdominal aorta and common iliac arteries with mild atherosclerosis. Bowel, Mesentery and Peritoneal space: The small and large bowel loops are all normal in caliber. No evidence of a bowel obstruction. No areas of bowel wall thickening are visualized. No ascites, pneumoperitoneum or central mesenteric lymphadenopathy. Pelvis: There is diffuse pelvic floor laxity as well as a rectocele. The urinary bladder is mildly distended. No pelvic lymphadenopathy. The uterus is absent. Abdominal wall and Osseous Structures: There has been development of a mild to moderate compression deformity of L1 since the November 04, 2016 x-rays. There is patchy though diffuse sclerosis throughout this vertebral body suggesting this is a subacute deformity with some healing.There is now minimal retropulsion of the superior endplate.Mild compression deformities of T11 and T12 status post vertebral plasty as well as minimal retropulsion of the superior endplates is all grossly unchanged.Grade 1 anterolisthesis of L3 on L4 is unchanged.There is diffuse osteopenia.There is a new though subacute appearing compression deformity of the S2 vertebra since at least the September 01, 2016 MRI exam, though is grossly unchanged on the November 04, 2016 plain film exam.There are bilateral sacral insufficiency fractures that have been present since at least October 21, 2016.There are subacute appearing fracture deformities of the right superior and inferior pubic rami on the right that have been present since at least October 21, 2016. Procedure Note Interface, Radiant Results - [facility] Dec 26, 2016 7:37 AM [employer] OPERATOR CT ABDOMEN AND PELVIS Clinical Indication: Female, 66 years old. Worsening abdominal pain. Evaluate for thickening of bowel or mass. 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 Technique: Multiple contiguous axial images were obtained through the abdomen and pelvis following the administration of IV contrast material. Portal venous and delayed imaging was obtained. Post processing coronal and sagittal reconstruction images were made from the axial images. IV contrast: Isovue-370 Bowel contrast: Yes Comparison: Chest CT October 23, 2016. CTAC images from the PET exam of October 21, 2016. Plain film exams of the lumbar spine November 04, 2016. FINDINGS: Lower Thorax: The tip of a central venous catheter terminates within the right atrium. There are a few areas of very minimal linear atelectasis or scarring in the lung bases. Liver and Biliary system: The liver is normal in size. Within hepatic segment 7 (series 3 image 13) there is a 0.3 cm hypodense lesion that is too small to characterize though likely an incidental cyst. Prior cholecystectomy. 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 Spleen: Unremarkable. Adrenal Glands and Kidneys: Both adrenal glands are normal. There are several tiny subcentimeter hypodense lesions scattered throughout the kidneys that are too small to accurately characterize though likely represent incidental cysts. Incidental note is made of a circumaortic left renal vein. Pancreas and Retroperitoneum: There is unchanged diffuse parenchymal atrophy of the pancreas. No retroperitoneal lymphadenopathy or fluid collection. Aorta and Major Vessels: Normal caliber abdominal aorta and common iliac arteries with mild atherosclerosis. Bowel, Mesentery and Peritoneal space: The small and large bowel loops are all normal in caliber. No evidence of a bowel obstruction. No areas of bowel wall thickening are visualized. No ascites, pneumoperitoneum or central mesenteric lymphadenopathy. Pelvis: There is diffuse pelvic floor laxity as well as a rectocele. The urinary bladder is mildly distended. No pelvic lymphadenopathy. The uterus is absent. Abdominal wall and Osseous Structures: There has been development of a mild to moderate compression deformity of L1 since the November 04, 2016 x-rays. There is patchy though diffuse sclerosis throughout this vertebral body suggesting this is a subacute deformity with some healing. There is now minimal retropulsion of the superior endplate. Mild compression deformities of T11 and T12 status post vertebral plasty as well as minimal retropulsion of the superior endplates is all grossly unchanged. Grade 1 anterolisthesis of L3 on L4 is unchanged. There is diffuse osteopenia. There is a new though subacute appearing compression deformity of the S2 vertebra since at least the August MRI exam, though is grossly unchanged on the November 04, 2016 plain film exam. There are bilateral sacral insufficiency fractures that have been present since at least October 21, 2016. There are subacute appearing fracture deformities of the right superior and inferior pubic rami on the right that have been present since at least October 21, 2016. IMPRESSION 1. No inflammatory mass, ascites or bowel obstruction. 2. Tiny hepatic segment 7 lesion that most likely represents a cyst. 3. Diffuse pelvic floor laxity with a rectocele. 4. Subacute-appearing mild to moderate compression fracture deformity of L1 that is new since November 04, 2016. There are also subacute appearing bilateral sacral insufficiency fractures, right superior and inferior pubic rami fractures, and compression deformity of the S2 vertebra Finalized by Italo Caal M.D. on 12/26/2016 7:34 AM. Dictated by Italo Caal M.D. on 12/26/2016 7:11 AM. CULTURE-BLOOD W/SENSITIVITY (12/25/2016 12:08 PM)Only the most recent of 3 results within the time period is included. Component Value Range Battery Name BLOOD CULTURE Specimen Description BLOOD LEFT TRIFUSION Special Requests NONE Culture NO GROWTH 5 DAYS Report Status FINAL 12/31/2016 Specimen Blood LACTIC ACID(LACTATE) (12/25/2016 12:00 PM) Component Value Range Lactic Acid CC 0.8 0.5-2.0 Specimen Blood T&B CELL PANEL,BLOOD (12/11/2016 10:25 AM) Component Value Range CD3% 89.3 (H) 49-84 % CD8% 61.8 (H) 10-40 % CD4-Blood 29.0 28-63 % CD16/56% 10.1 4-25 % [id number] 0 (L) 6-27 % CD3 Count 123 [id number] UL CD8 Count 926 134-6760 UL CD4 Count 276 (L) 440-2160 UL CD16/56 Count 96 90-640 UL CD19 Count 0 (L) 100-700 UL Specimen Blood LIPID PROFILE (12/11/2016 10:25 AM) Component Value Range Cholesterol 277 (H) <200 MG/DL Triglycerides 255 (H) <150 MG/DL HDL 99 >40 MG/DL LDL 130 (H) <100 MG/DL VLDL 51 MG/DL Non HDL Cholesterol 178Comment: MG/DL Calculated non-HDL Cholesterol (non-HDL-C) indirectly measures LDL-C, Lp(a), IDL-C, and VLDL-C. It is a surrogate marker for Apoprotein B. Non-HDL-C is a more accurate measure of atherogenic particle concentration than LDL-C in patients with hypertriglyceridemia (>200 mg/dL). This calculation is now recommended for evaluation and treatment of coronary heart disease according to the National Cholesterol Education Program Adult Treatment Protocol-III. See Mclaughlin et al. Am J. Cardiol. 2008, 101:1971-0032. The "goal" should be less than 130 mg/dL, but will vary according to risk factors. Specimen Blood FERRITIN (12/11/2016 10:25 AM) Component Value Range Ferritin 719 (H) 10-200 NG/ML Specimen Blood IMMUNOGLOBULINS-IGA,IGG,IGM (12/11/2016 10:25 AM) Component Value Range IgG 269 (L) 762-1488 MG/DL IgA 21 (L) 70-390 MG/DL IgM <20 (L) 38-328 MG/DL Specimen Blood 25-OH VITAMIN D (D2 + D3) (12/11/2016 10:25 AM) Component Value Range Vitamin D(25-OH)Total 16.9 (L) 30-80 NG/ML Specimen Blood [facility] SPINE INJECTION (12/05/2016 4:07 PM) Dylan Sheets MD 12/05/20164:07 PM Spine Injection Procedure: transforaminal epidural Laterality: right Location: lumbar - L2-3 and L3-4 Consent: Consent obtained: written Consent given by: patient Risks discussed: allergic reaction, bleeding, infection, nerve damage, no change or worsening in pain and reaction to medication Discussed with patient the purpose of the treatment/procedure, other ways of treating my condition, including no treatment/ procedure and the risks and benefits of the alternatives. Patient has decided to proceed with treatment/procedure. [facility] Protocol: Relevant documents: relevant documents present and verified Test results: test results available and properly labeled Imaging studies: imaging studies available Required items: required blood products, implants, devices, and special equipment available Site marked: the operative site was marked Patient identity confirmed: Patient identify confirmed verbally with patient. Time out: Immediately prior to procedure a "time out" was called to verify the correct patient, procedure, equipment, customer support advisor and site/side marked as required Procedures Details: Indications: pain Prep: chlorhexidine Patient position: prone Estimated Blood Loss: minimal Specimens: none Amount Injected: L2-3: 1mL L3-4: 1mL 2Approach: right paramedian Guidance: fluoroscopy Contrast: Procedure confirmed with contrast under live fluoroscopy. Needle and Epidural Catheter: quincke Needle gauge: 25 G Injection procedure: Negative aspiration for blood and Incremental injection Patient tolerance: Patient tolerated the procedure well with no immediate complications. Pressure was applied, and hemostasis was accomplished. Comments: 40mg triamcinolone injected at each of 2 locations BLOOD BANK SAMPLE HOLD (12/04/2016 9:45 AM) Component Value Range BB Sample hold IN LAB Specimen Blood VRE SCREEN (12/04/2016 9:36 AM)Only the most recent of 2 results within the time period is included. Component Value Range Battery Name VRE SCREEN Specimen Description PERIRECTAL SWAB Special Requests NONE Culture NO VRE ISOLATED Report Status FINAL 12/05/2016 Specimen Perirectal Swab IONIZED CALCIUM (11/27/2016 12:14 PM) Component Value Range Ionized Calcium 1.20 1.0-1.3 MMOL/L Specimen Blood
--- OUTSIDE RECORDS SUMMARY | 2017-02-16 13:27 | XMS REPORT | Continuity of Care Document ---
Author Author [facility] Organization [facility] Address Unknown Phone Unavailable Care Team Providers Care Textile Machine Mechanic Name Role Phone [place] PCP [phone] Source Comments Some departments are not documenting in the electronic medical record. 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 ([facility]) 2016 Closed compression fracture of third lumbar vertebra ([facility]) 02/14/2017 Closed compression fracture of fifth lumbar vertebra ([facility]) 02/14/2017 Elevated ALT measurement 02/14/2017 Hyperkalemia 02/05/2017 Osteoporosis 02/05/2017 Bilateral dry eyes 01/23/2017 Decubitus ulcer of left buttock, stage 2 12/25/2016 Hemorrhoids 12/11/2016 Hypogammaglobulinemia ([facility]) 12/04/2016 Constipation 12/04/2016 Tobacco abuse counseling 11/20/2016 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 ([facility]) 11/20/2016 Major depressive disorder, recurrent, in partial remission ([facility]) 09/17/2016 Major depressive disorder, recurrent episode, mild ([facility]) 09/14/2016 Steroid myopathy 09/13/2016 Compression fracture 09/06/2016 Acute pain due to trauma 09/04/2016 Closed fracture of proximal end of right humerus with nonunion 08/30/2016 Low back pain 08/23/2016 Fatigue 08/12/2016 Hyperpigmentation 08/07/2016 Vertigo 08/07/2016 Atrial flutter, paroxysmal ([facility]) 08/05/2016 Overview: 08/12/16-Comprehensive EPS/Radiofrequency ablation of atrial flutter 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 Anemia due to chronic illness 07/29/2016 Restless leg syndrome 07/29/2016 Sciatica 07/26/2016 Non-rheumatic mitral regurgitation 07/05/2016 Paroxysmal atrial fibrillation ([facility]) 07/01/2016 Last Assessment & Plan: [...] I recommended further evaluation with a looping cardiac cath lab radiology technologist. She is to follow up with Dr. Grady in 4 weeks to discuss results. If she has recurrent AF, OAC will need to be addressed (CHADSVASC1 for female), and if the burden is high, discussing treatment options of AAD therapy vs. Catheter based ablation. 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 L ast Assessment & Plan: Following with Oncology, and currently in remission Thrombocytopenia ([facility]) 03/26/2016 Resolved Problems Problem Noted Date Resolved Date Generalized abdominal pain 12/25/2016 02/05/2017 Oral ulceration 11/12/2016 12/25/2016 Hypocalcemia 11/10/2016 11/13/2016 Nausea vomiting and diarrhea 10/06/2016 10/06/2016 Nausea, vomiting and diarrhea 10/06/2016 10/06/2016 Increased nausea and vomiting 10/06/2016 10/09/2016 Hypophosphatemia 08/16/2016 11/20/2016 Pancytopenia ([facility]) 08/14/2016 12/25/2016 Paroxysmal a-fib ([facility]) 08/10/2016 08/21/2016 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[facility]) 08/09/2016 12/25/2016 Decreased appetite 08/01/2016 11/20/2016 Elevated white blood cell count 07/29/2016 08/07/2016 Hypomagnesemia 07/29/2016 12/25/2016 Nausea 07/23/2016 08/07/2016 Acute respiratory failure with hypoxia ([facility]) 07/05/2016 07/17/2016 Pleural effusion, bilateral 07/05/2016 07/17/2016 QT prolongation 07/05/2016 11/20/2016 NANO (acute kidney injury) ([facility]) 06/30/2016 07/17/2016 Hypoxia 06/30/2016 07/29/2016 [...] 05/23/2016 12/25/2016 Pancytopenia due to antineoplastic chemotherapy ([facility]) 05/11/20162015 Nausea 05/05/2016 07/17/2016 On antineoplastic chemotherapy 03/26/2016 08/26/2016 Most Recent Encounters Date Type Specialty Providers Description 02/14/2017 Office Visit Oncology Vicki Kimball MD GVH (graft versus host CareyBebeto mazariegos, SUPERVISOR [employer]BESTOS REMOVAL disease) (HCC) (Primary Dx); Decubitus ulcer of [...] transplant (HCC); 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[facility]) 02/14/2017 Office Visit Infectious Diseases [...] 02/14/2017 Documentation Oncology Manuel Godinez MD 02/13/2017 [facility] Burn Surgery / Burn Care Benito Ruth MD Encounter 02/13/2017 Office Visit Oncology Manuel Godinez MD H/O stem cell transplant (HCC) (Primary Dx); Low back pain without sciatica, unspecified back pain laterality, unspecified chronicity; 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[facility]) 02/12/2017 Documentation Oncology Manuel Godinez MD 02/12/2017 Telephone Oncology Dre Brink Appointment - Called spoke w/pt - she confirmed appt for 02/1302/10/2017 Telephone Infectious Diseases Sandrine Leahy DO General Question 02/10/2017 Telephone Oncology Manuel Godinez MD Appointment - LM for Palliative Care appt 02/08/2017 [facility] Radiology Edith Buckley MD Encounter 02/08/2017 Ancillary Oncology Edith Buckley MD H/O stem cell transplant Orders (HCC) (Primary Dx) 02/07/2017 Screening Form 02/06/2017 [facility] Burn Surgery / Burn Care Emily Puente, [...] 02/03/2017 Documentation Oncology Kavya Santillan RN 01/31/2017 [facility] Radiology Vicki Kimball MD Encounter 01/31/2017 [facility] Burn Surgery / Burn Care Emily Puente, [...] RN BMT Follow-up 01/27/2017 Telephone Ophthalmology Emelyn Tineo, LISY Appointment 01/24/2017 Orders Only Oncology Fifi [...] Prep for Case Janusz Aragon MD 01/15/2017 [facility] Vicki Kimball MD Bronchiolitis obliterans - Encounter Reji Castaneda DO syndrome (HCC) 01/23/2017 01/15/2017 Anesthesia Mojgan Goode, SRNA Event 01/15/2017 Orders Only Oncology Edith Buckley MD 01/14/2017 Hospital Encounter 01/11/2017 Hospital Cardiology Vaibhav Astorga DO Encounter 01/01/2017 [facility] Radiology Vicki Kimball MD Encounter Barb Livingston RN Sattarin, Hameed Collins, Zachary S, MD 01/01/2017 Screening Form 12/28/2016 [facility] Rehabilitation Cely Espinal MD Steroid-induced myopathy - [...] Orders Only Oncology Claudia Ballard APRN 12/11/2016 [facility] Oncology Vicki Kimball MD Encounter 12/11/2016 Office [...] 11/29/2016 Documentation Oncology Sandrine Hui RN 11/28/2016 [facility] Oncology Surjit Phipps MD Encounter 11/28/2016 Orders [...] ulceration; Tobacco abuse counseling; 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 ECG-SCAN 01/23/2017 Results for this 8:26 AM SNAP ATTACHER procedure are in the results section. SLEEP STUDY-SCAN 01/20/2017 Results for this 1:07 PM SNAP ATTACHER procedure are in the results section. EXERCISE OXIMETRY-SCAN 01/20/2017 Results for this 1:07 PM SNAP ATTACHER procedure are in the results section. BRONCHOSCOPY WITH LAVAGE 01/16/2017 Lung infiltrate 3:15 PM SNAP ATTACHER EXERCISE OXIMETRY-SCAN 01/15/2017 Results for this 2:34 PM SNAP ATTACHER procedure are in the results section. SLEEP STUDY-SCAN 01/15/2017 Results for this 2:33 PM SNAP ATTACHER procedure are in the results section. SLEEP STUDY-SCAN 01/14/2017 Results for this 2:47 PM SNAP ATTACHER procedure are in the results section. WI NJX ANES&/STRD W/IMG Routine 12/05/2016 Lumbar radiculopathy Results for this TFRML EDRL LMBR/SAC EA LV 4:07 PM SNAP ATTACHER Degeneration of lumbar or procedure are in the lumbosacral results section. intervertebral disc WI NJX ANES&/STRD W/IMG Routine 12/05/2016 Lumbar radiculopathy Results for this TFRML EDRL LMBR/SAC 1 LVL 4:07 PM SNAP ATTACHER Degeneration of lumbar or procedure are in [...] The performance characteristics were determined by the [facility]. Results should be correlated with clinical [...] % FEV1-Pre 1.61 L FEV1-%Pred-Pre 59 % SNE3936-Nwc 1.13 L/sec JNO0755-%Pred-Pre 48 % VCSVC-Pre 2.08 L ICSVC-Pre 1.74 [...] The performance characteristics were determined by the [facility]. Results should be correlated with clinical [...] Aspergillus Galactomannan EIA is a product of [employer] and is FDA approved for in vitro diagnostic use. Testing Performed At: [facility] [address] [place] [address] [email or web address] [address] CLIA ID: [id number] Specimen Blood FUNGITELL (01/17/2017 12:30 PM) Component Value Range Fungitell <31 Unit: pg/mL Interpretation: The Fungitell assay does not detect certain fungal species such as the genus Cryptococcus (Naseem et al. 1991) which produces very low levels of (1-3)-Hxio-Y-Jyvrql. The assay also does not detect the Zygomycetes such as Absidia, Mucor and Rhizopus (Yohana et al. 1994) which are not known to produce (1-3)-Mmzi-E-Oxoxfe. In addition, the yeast phase of Blastomyces dermatitidis produces little (1-3)-Yiax-V-Xaqolv and may not be detected by the [...] in vitro diagnostic use. Testing Performed At: [facility] [address] [place], [place] [id number] CLIA ID: [id number] Specimen Blood SURGICAL PATHOLOGY (01/17/2017 12:26 PM) Component Value Range PATHOLOGY REPORT [facility] [email or web address] Zayda Baca MD, PhD, Director of Anatomic Pathology Department of Pathology and Laboratory Medicine [address] [place] [id number] Surgical Pathology Office: [phone] SURGICAL PATHOLOGY REPORT NAME: ASHLEY WOLFE SURG PATH #: [id number] MR #: [id number] SPECIMEN CLASS: SR BILLING #: [id number] ALT ID #: LOCATION: 41 DATE OF [...] developed and its performance characteristics determined by [facility]. It has not been cleared or approved by the U.S. Food and Drug Administration.-Results should be used in conjunction with clinical findings, and should not form the sole basis for a diagnosis or treatment decision.- PCR tests are performed pursuant to a license agreement with [employer]. Testing Performed At: [facility] [address] [place] [address] [email or web address] [address] CLIA ID: [id number] Specimen Bronchial Washing RUL ASPERGILLUS GALACTOMANN (01/16/2017 [...] Aspergillus Galactomannan EIA is a product of [employer] and is FDA approved for in vitro diagnostic use. Testing Performed At: [facility] [address] [email or web address] [address] CLIA ID: [id number] Specimen Bronchial Washing RUL HERPES SIMPLEX PCR - NON-BLOOD (01/16/2017 4:17 PM) Component Value Range Specimen, Herpes BRONCHIAL ALVEOLAR LAVAGE Herpes Simplex PCR Negative for HSV-1 and 2 This assay uses analyte specific reagents to detect herpes simplex 1 and 2 DNA. It has not been cleared or approved by the US Food and Drug Administration. The performance characteristics were determined by the [facility]. Results should be correlated with clinical [...] The performance characteristics were determined by the [facility]. Results should be correlated with clinical [...] Wolfe Procedure Date: 01/16/2017 3:38 PM CSN: [id number] Date of : 1950 Gender: Female Attending Physician: Janusz Aragon MD Procedure: Bronchoscopy Indications: Bilateral infiltrate Providers: Janusz Aragon MD (Doctor), WILLIAM Adkins (Fellow), Camila Bowen RN (Nurse), Sher Pantoja, Supervisor [employer] (Techn ician) Referring Physician: Elias Valente MD [...] Range TSH 4.417 0.35-5.00 MCU/ML Specimen Blood NON-FORENSIC LOCKSMITH CYTOLOGY (BODY FLUIDS/TISSUE) (01/16/2017 10:09 AM) Component Value Range Cytology [facility] [email or web address] Zayda Baca MD, Director Cytopathology Department of Pathology and Laboratory Medicine [address] [place] [phone] Office: [phone] CYTOLOGY REPORT NAME: ASHLEY WOLFE CYTOLOGY #: [id number] MR #: [id number] ALT ID #: BILLING #: [id number] LOCATION: DATE OF PROCEDURE: 01/16/2017 10:09 AGE: [...] with history and clinical findings. Reported using [employer] terminology. ################################################## ###################### CT CHEST WO [...] - Wed Jan 15, 2017 3:[address] CHEST Clinical Indication: Female, 66 years [...] POS CONSISTENT WITH HISTORICAL ANTIBODY Unit Number [id number] Blood Component Type RBC,ADSOL,LEUKO REDUCED,IRRADIATED Unit Division 0 Status OF Unit TRANSFUSED Transfusion Status OK TO TRANSFUSE Crossmatch Result COMPATIBLE, GEL Antigen Type (Units) [place] antigen NEG, Specimen Blood METHEMOGLOBIN (01/13/2017 6:05 [...] Color,UA GIOVANNY Turbidity,UA 2+ (A) CLEAR-CLEAR Specific [place]-Urine 1.018 1.003-1.035 pH,UA 5.0 5.0-8.0 Protein,UA 2+ [...] Results - FriJan 13, 2017 2:[address] HEAD HISTORY: HEAD INJURY MODERATE OR [...] Results - FriJan 10, 2017 3:59 PM SNAP ATTACHER CTA Chest Clinical Indication: Concern for pulmonary [...] - [place] Jan 09, 2017 10:47 AM SNAP ATTACHER TUNNELED CATHETER REMOVAL CLINICAL INDICATION: Completion of [...] PM) Component Value Range PATHOLOGY REPORT [facility] [email or web address] Zayda Baca MD, PhD, Director of Anatomic Pathology Department of Pathology and Laboratory Medicine [address] [place] [id number] Surgical Pathology Office: [phone] SURGICAL PATHOLOGY REPORT NAME: ASHLEY WOLFE SURG PATH #: [id number] MR #: [id number] ALT ID #: LOCATION: IR DATE OF [...] indicated in this report. +++Electronically Signed Out+++ ma01/01/2017 Interpreted by: Jasmyne Yap MD, Attending Physician [...] of Pathology and Laboratory Medicine of the [facility] ([facility] [facility]) in compliance with CLIA'88 regulations. Some of these tests rely on the use of "analyte specific reagents" and are subject to specific labeling requirements by the FDA. Known positive and negative control tissues demonstrate appropriate staining. This testing was developed by the Department of Pathology and Laboratory Medicine of the [facility]. It has not been cleared or approved [...] fentanyl Procedure Note Interface, Radiant Results - [facility] Jan 02, 2017 2:48 PM SNAP ATTACHER Bone marrow aspiration, bone marrow biopsy with [...] PM) Component Value Range PATHOLOGY REPORT [facility] [email or web address] Jasmyne Yap MD, Director of Clinical Laboratory Marvin Joseph MD, Director of Flow Cytometry Laboratory Department of Pathology and Laboratory Medicine [address] [place] [phone] Surgical Pathology Office: [phone] FLOW CYTOMETRY REPORT NAME: ASHLEY WOLFE SURG PATH #: [id number] MR #: [id number] SPECIMEN CLASS: LC BILLING #: [id number] ALT ID #: LOCATION: DATE OF PROCEDURE: [...] Associated Markers (% Positive Cells): CD19=0; CD20=0; [place]=0; Lambda=0; [place]:Lambda ratio=na T Cell Associated Markers (% Positive Cells): CD2=93; CD3=78; CD4=24; CD5=78; CD7=90; CD8=62; CD4:CD8 ratio=0.4 Miscellaneous Markers (% Positive Cells): CD10=0; CD38=79; SJ88=427; CD56=27 Cell Viability (%): na Number of Cells Analyzed: [id number] Total Number of Markers: 16 Summary of Marker Combinations: [place]/Lambda/5/10/19/45/38/20; 2/7/5/3/4/45/56/8 This test was developed and its performance characteristics determined by the [facility] Flow Cytometry Laboratory. It has not been cleared or approved by the U.S. Food and Drug Administration (FDA). The FDA has determined that such clearance or approval is not necessary. BONE MARROW BIOPSY IR (01/01/2017 1:06 PM) Component Value Range Bone Marrow BX IR SEE PATHOLOGY REPORT CHROMOSOMES FISH DNA PROBE (01/01/2017 1:06 PM) Component Value Range Chromosomes Fish DNA SEE INTERIOR DESIGN CONSULTANT FOR REPORT Probe Specimen Bone Marrow CHROMOSOMES BONE MARROW (01/01/2017 1:06 PM) Component Value Range Chromosomes Bone Marrow SEE INTERIOR DESIGN CONSULTANT FOR REPORT Specimen Bone Marrow LEUKEMIA/LYMPHOMA PNL, [...] Results - FriJan 01, 2017 11:43 AM SNAP ATTACHER PET/CT NECK, CHEST, ABDOMEN AND PELVIS RADIOPHARMACEUTICAL: [...] - [place] Dec 26, 2016 7:[address] ABDOMEN AND PELVIS Clinical Indication: Female, [...] 29.0 28-63 % CD16/56% 10.1 4-25 % PO68-Mncqg 0 (L) 6-27 % CD3 Count [phone] UL CD8 Count [phone] UL CD4 Count 276 (L) [phone] UL [...] Mclaughlin et al. Am J. Cardiol. 2008, 101:8269-8187. The "goal" should be less than 130 [...] Patient has decided to proceed with treatment/procedure. [place] Protocol: Relevant documents: relevant documents present and [...] to verify the correct patient, procedure, equipment, coding support specialist and site/side marked as required Procedures Details: [...]
[2017-02-16 13:45] VITALS: BP 151/86
--- NOTE | 2017-02-16 13:51 | NUR ---
take assist x2 to get up to bathroom, very slow to ambulate
[2017-02-16] MEDS ORDERED: [UNRECOGNIZED DRUG - OTHER] TOP (14:11)
[2017-02-16] MEDS ORDERED: ATOV750O4 PO (14:11)
[2017-02-16] MEDS ORDERED: ACYC800T PO (14:11)
[2017-02-16] MEDS ORDERED: ALBU8.5H6 IH (14:11)
[2017-02-16] MEDS ORDERED: ALEN70TA2 PO (14:11)
[2017-02-16] MEDS ORDERED: AMITRIP TOP (14:11)
[2017-02-16] MEDS ORDERED: COLL30OI TOP (14:14)
[2017-02-16] MEDS ORDERED: AZTH250C PO (14:14)
[2017-02-16] MEDS ORDERED: BUDE10.2 IH (14:14)
[2017-02-16] MEDS ORDERED: CYCL1DRO OU (14:18)
[2017-02-16] MEDS ORDERED: ETHA100T13 PO (14:18)
[2017-02-16] MEDS ORDERED: GBPN100C PO (14:18)
[2017-02-16] MEDS ORDERED: DOCU-243 PO (14:18)
[2017-02-16] MEDS ORDERED: HC2.5C30 TOP (14:18)
[2017-02-16] MEDS ORDERED: D50KC PO (14:18)
[2017-02-16] MEDS ORDERED: MGX400T PO (14:21)
[2017-02-16] MEDS ORDERED: METO25TA2 PO (14:21)
[2017-02-16] MEDS ORDERED: NICO1PAT34 TD (14:21)
[2017-02-16] MEDS ORDERED: MNTL10T PO (14:21)
[2017-02-16] MEDS ORDERED: RFMP300C PO (14:26)
[2017-02-16] MEDS ORDERED: OXYC15TA PO (14:26)
[2017-02-16] MEDS ORDERED: POLY17PO6 PO (14:26)
[2017-02-16] MEDS ORDERED: OXYC30TA77 PO (14:26)
[2017-02-16] MEDS ORDERED: POLY1DRO2 OU (14:26)
[2017-02-16] MEDS ORDERED: ONDN4T PO (14:26)
[2017-02-16] MEDS ORDERED: ROPI1TAB2 PO (14:29)
[2017-02-16] MEDS ORDERED: VENL150C53 PO (14:29)
[2017-02-16] MEDS ORDERED: TRIA80OI2 TOP (14:29)
[2017-02-16] MEDS ORDERED: SENN-126 PO (14:29)
[2017-02-16] MEDS ORDERED: TACR0.5C PO (14:29)
[2017-02-16] MEDS ORDERED: URSO250T11 PO (14:32)
[2017-02-16] MEDS ORDERED: PRD5T PO (14:32)
[2017-02-16] MEDS ORDERED: POSA100T PO (14:32)
[2017-02-16] MEDS ORDERED: HYDROmorphone 1 MG/ML (DILAUDID) SYRINGE IM ONE (16:15)
== END 2017-02-16 16:30 | disposition short-term general hospital (02) ==
LOC: ED 13:18
DX: M54.89 Other dorsalgia (principal); Z94.81 Bone marrow transplant status
CPT/HCPCS: 96372; 99283; J1170; 99282

== ENCOUNTER → 2017-02-16 | Outpatient (CLI) | payer OTHER, MEDICAID | LOC: EMS 13:07 | PROVIDERS: ATTEND Emergency Medicine | DX: R10.11 Right upper quadrant pain (principal); M54.89 Other dorsalgia; L89.229 Pressure ulcer of left hip, unspecified stage ==

== ENCOUNTER → 2017-02-24 | Emergency (ER) | payer MEDICAID, OTHER ==
[~2017-02-24] VITALS: Ht 170.2 cm; Wt 62.7 kg
[~2017-02-24] MED LIST changes: +CPR500T PO; -D50KC PO; +HYDROmorphone 2 MG/ML (DILAUDID) 1 ML SYRINGE IM ONE; +[UNRECOGNIZED DRUG - CODE] PO
--- OUTSIDE RECORDS SUMMARY | 2017-02-24 14:57 | XMS REPORT | Continuity of Care Document ---
Author Author [facility] Organization [facility] Address Unknown Phone Unavailable Care Team Providers Care Heel Varnisher Name Role Phone [place] PCP [phone] Source Comments Some departments are not documenting in the electronic medical record. If you do not see the information that you expected, contact Release of Information in the Health Information Management department at [phone] for further assistance in locating additional records.[facility] Active Allergies and Adverse Reactions Allergen Noted [...] times weekly. 17 Indications: ATYPICAL MYCOBACTERIAL INFECTION ursodiol (ANAHI 250) 250 Take 2 Tabs by mouth 120 Tab 1 02/15/20 Active mg tablet twice daily. 17 ruxolitinib (JAKAFI) 10 Take 1 Tab by mouth twice 02/15/20 Active mg tablet daily. 17 prednisone (DELTASONE) 10 Take 1 Tab by mouth 0 02/22/20 Active mg tablet daily. Decreased 02/21. 17 fluticasone/salmeterol Inhale 1 Puff by mouth 1 [...] as needed 17 17 ued for Pain posaconazole EC (NOXAFIL) Take 3 Tabs by mouth 90 Tab 2 02/15/2006/05 Discontin 100 mg tablet daily with breakfast. ON ued HOLD 02/14 WITH ELEVATED ALT prednisone (DELTASONE) 5 Take 2 Tabs by mouth 300 Tab 2 02/15/2006/05 Discontin mg tablet twice daily with meals. 17 17 ued DECREASED 02/14. 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 (HCC) 11/20/2016 Major depressive disorder, recurrent, in partial remission (HCC) 09/17/2016 Major depressive disorder, recurrent episode, mild (HCC) 09/14/2016 Steroid myopathy 09/13/2016 Compression fracture 09/06/2016 Acute pain due to trauma 09/04/2016 Closed fracture of proximal end of right humerus with nonunion 08/30/2016 Low back pain 08/23/2016 Fatigue 08/12/2016 Hyperpigmentation 08/07/2016 Vertigo 08/07/2016 Atrial flutter, paroxysmal ([facility]) 08/05/2016 Overview: 08/12/16-Comprehensive EPS/Radiofrequency ablation of atrial flutter 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 Anemia due to chronic illness 07/29/2016 Restless leg syndrome 07/29/2016 Sciatica 07/26/2016 Non-rheumatic mitral regurgitation 07/05/2016 Paroxysmal atrial fibrillation ([facility]) 07/01/2016 Last Assessment & Plan: The patient [...] I recommended further evaluation with a looping diagnostic cardiac sonographer. She is to follow up with Dr. Grady in 4 weeks to discuss results. If she has recurrent AF, OAC will need to be addressed (CHADSVASC1 for female), and if the burden is high, discussing treatment options of AAD therapy vs. Catheter based ablation. 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 Fully ablative/reduced intensity/NST: non myeloablative Disease: Mantle Cell Lymphoma Disease status at transplant: [facility] Cytogenetic/Fish AT DIAGNOSIS: t(11;14) HLA Match: 8:8, matched sibling Donor & Cell source: Brother, Elmer Wolfe KUMRN [id number], bone marrow CMV: Donor: POS, Recipient: NEG ABO: Donor: O POS, Recipient: O NEG Consents/Studies: 8322, blood, H&P, non myeloablative allo Coordinator: Ana James Lymphadenopathy of head and neck 04/01/2016 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 (HCC) 03/26/2016 Overview: Stage IV: left and right axillary, left infraclavicular, right tonsillar. L ast Assessment & Plan: Following with Oncology, and currently in remission Thrombocytopenia (HCC) 03/26/2016 Resolved Problems Problem Noted Date Resolved Date Generalized abdominal pain 12/25/2016 02/05/2017 Oral ulceration 11/12/2016 12/25/2016 Hypocalcemia 11/10/2016 11/13/2016 Nausea vomiting and diarrhea 10/06/2016 10/06/2016 Nausea, vomiting and diarrhea 10/06/2016 10/06/2016 Increased nausea and vomiting 10/06/2016 10/09/2016 Hypophosphatemia 08/16/2016 11/20/2016 Pancytopenia ([facility]) 08/14/2016 12/25/2016 Paroxysmal a-fib (HCC) 08/10/2016 08/21/2016 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[facility]) 08/09/2016 12/25/2016 Decreased appetite 08/01/2016 11/20/2016 Elevated white blood cell count 07/29/2016 08/07/2016 Hypomagnesemia 07/29/2016 12/25/2016 Nausea 07/23/2016 08/07/2016 Acute respiratory failure with hypoxia (HCC) 07/05/2016 07/17/2016 Pleural effusion, bilateral 07/05/2016 07/17/2016 QT prolongation 07/05/2016 11/20/2016 NANO (acute kidney injury) (HCC) 06/30/2016 07/17/2016 Hypoxia 06/30/2016 07/29/2016 SOB (shortness of breath) 06/30/2016 11/20/2016 Hypotension 06/21/2016 11/20/2016 Oral mucositis (ulcerative) due to antineoplastic therapy 06/21/201607/17 Diarrhea 06/20/2016 07/17/2016 Postural dizziness 06/20/2016 07/17/2016 Hypokalemia 06/20/2016 11/20/2016 Syncope 06/17/2016 11/20/2016 Fall 06/15/2016 11/20/2016 Overview: Patient fell on 08/06/16 Conditioning chemotherapy prior to peripheral blood stem cell transplant 06/17/2016 Orthostatic hypotension 05/23/2016 12/25/2016 Pancytopenia due to antineoplastic chemotherapy (HCC) 05/11/20162015 Nausea 05/05/2016 07/17/2016 On antineoplastic chemotherapy 03/26/2016 08/26/2016 Most Recent Encounters Date Type Specialty Providers Description 02/24/2017 Telephone Oncology Kavya Santillan, Care Coordination RN 02/21/2017 Orders Only Oncology Bebeto Carey APRN History of stem cell transplant (HCC) (Primary Dx) 02/19/2017 Anesthesia Radiology Chuck Tapia MD Event 02/17/2017 Telephone Anesthesia Pain Asim Sheets MD Appointment 02/17/2017 Screening Form 02/16/2017 [facility] Demarco Bowman MD Pain - Encounter Carmelo Garcia MD 02/21/2017 02/16/2017 Telephone Oncology Maira Turner RN BMT Follow-up 02/14/2017 Office Visit Oncology Vicki Kimball MD GVH (graft versus host Bebeto Carey APRN disease) (HCC) (Primary Dx); Decubitus ulcer of [...] transplant (HCC); 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) 02/14/2017 Office Visit Infectious Diseases Sandrine Laehy DO Mycobacterium avium complex (HCC) (Primary Dx); 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) 02/14/2017 Hospital Cardiology Vicki Kimball MD Encounter 02/14/2017 Office Visit Cardiology Edith Buckley MD New To Provider - discuss Tanja Saleem PA-C med changes 02/14/2017 Orders Only Oncology Sherice Akbar, PHARMD 02/14/2017 Documentation Cardiology Bobbi Desai Other - event monitor Enrollment confirmed-CardioLabs 02/14/2017 Documentation Oncology Manuel Godinez MD 02/13/2017 [facility] Burn Surgery / Burn Care Benito Ruth MD Encounter 02/13/2017 Office Visit Oncology Manuel Godinez MD H/O stem cell transplant (HCC) (Primary Dx); Low back pain without sciatica, unspecified back pain laterality, unspecified chronicity; 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) 02/12/2017 Documentation Oncology Manuel Godinez MD 02/12/2017 Telephone Oncology Dre Brink Appointment - Called spoke w/pt - she confirmed appt for 02/1302/10/2017 Telephone Infectious Diseases Sandrine Leahy DO General Question 02/10/2017 Telephone Oncology Manuel Godinez MD Appointment - LM for Palliative Care appt 02/08/2017 [facility] Radiology Edith Buckley MD Encounter 02/08/2017 Ancillary Oncology Edith Buckley MD H/O stem cell transplant Orders (HCC) (Primary Dx) 02/07/2017 Screening Form 02/06/2017 [facility] Burn Surgery / Burn Care Emily Puente APRN Encounter 02/06/2017 Orders Only Oncology Shahida Roy RN 02/06/2017 Telephone Oncology Jane Gallegos, ARIEL BMT Follow-up 02/06/2017 Orders Only Oncology Edith [...] left buttock, stage 2; Hyperkalemia; Osteoporosis 02/05/2017 [facility] Oncology Edith Buckley MD Encounter 02/03/2017 Telephone Oncology Shahida Roy RN BMT Follow-up 02/03/2017 Documentation Oncology Kavya Santillan RN 01/31/2017 [facility] Radiology Vicki Kimball MD Encounter 01/31/2017 [facility] Burn Surgery / Burn Care Emily Puente APRN Encounter 01/30/2017 Office Visit Pulmonology Mat Rothman MD Lung nodule ( Primary Dx); Bronchiolitis obliterans syndrome (HCC); 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); Tobacco abuse counseling; Steroid-induced myopathy 01/30/2017 [facility] Radiology Asim Sheets MD Encounter 01/30/2017 [...] RN BMT Follow-up 01/27/2017 Telephone Ophthalmology Emelyn Tineo COA Appointment 01/24/2017 Orders Only Oncology Fifi Haley RN H/O stem cell transplant (HCC) (Primary Dx) 01/21/2017 Documentation Oncology Vicki Kimball MD 01/20/2017 Orders Only Orthopedic Surgery Antoni Chavarria MD Surgery follow-up (Primary Dx) 01/17/2017 Documentation Zoie Andre 01/17/2017 Documentation Oncology Vicki Kimball MD 01/17/2017 Orders Only Oncology Shereen Dye PHARMD 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) (Primary Dx) 01/16/2017 Surgery Janusz Aragon MD BRONCHOSCOPY WITH LAVAGE 01/16/2017 Prep for Case Janusz Aragon MD 01/15/2017 [facility] Vicki Kimball MD Bronchiolitis obliterans - Encounter Reji Castaneda DO syndrome (HCC) 01/23/2017 01/15/2017 Anesthesia Mojgan Goode, LIANET Event 01/15/2017 Orders Only Oncology Edith Buckley MD 01/14/2017 Hospital Encounter 01/11/2017 Hospital Cardiology Vaibhav Astorga DO Encounter 01/01/2017 [facility] Radiology Vicki Kimball MD Encounter Barb Livingston RN Sattarin, Hameed Collins, Zachary S, MD 01/01/2017 Screening Form 12/28/2016 [facility] Rehabilitation Cely Espinal MD Steroid-induced myopathy - Encounter Vaibhav Astorga DO 01/15/2017 12/25/2016 [facility] Edith Buckley MD Thrombocytopenia (HCC) - [...] Ballard APRN 12/12/2016 Orders Only Oncology Claudia Ballard, ABHILASH 12/11/2016 [facility] Oncology Vicki Kimball MD Encounter 12/11/2016 [...] Kimball MD Encounter 12/04/2016 Documentation Oncology Sandrine Hui, ARIEL 12/03/2016 Documentation Oncology Yesi Resendez RN 11/29/2016 Documentation Oncology Sandrine Hui RN 11/28/2016 Hospital Oncology Surjit Phipps MD Encounter 11/28/2016 [...] 11/27/2016 Orders Only Oncology Nestor Allen APRN Immunizations Name Dates Previously Given Next Due [...] Vital Sign Reading Time Taken Blood Pressure 103/68 02/21/2017 11:48 AM CDT Pulse 86 02/21/2017 11:48 AM CDT Temperature 37 C (98.6 F) 02/21/2017 11:48 AM CDT Respiratory Rate 17 02/14/2017 3:22 PM CDT Height 1.702 m (5' 7") 02/19/2017 10:28 AM CDT Weight 61.916 kg (136 lb 8 oz) 02/21/2017 3:40 AM CDT Body Mass Index 21.37 02/21/2017 3:40 AM CDT Oxygen Saturation 96% 02/21/2017 11:48 AM CDT Plan of Care Health Maintenance Due [...] OXIMETRY-SCAN 01/23/2017 Results for this 2:53 PM [employer] procedure are in the results section. ECG-SCAN 01/23/2017 Results for this 8:26 AM [employer] procedure are in the results section. SLEEP STUDY-SCAN 01/20/2017 Results for this 1:07 PM [employer] procedure are in the results section. EXERCISE OXIMETRY-SCAN 01/20/2017 Results for this 1:07 PM [employer] procedure are in the results section. BRONCHOSCOPY WITH LAVAGE 01/16/2017 Lung infiltrate 3:15 PM [employer] EXERCISE OXIMETRY-SCAN 01/15/2017 Results for this 2:34 PM [employer] procedure are in the results section. SLEEP STUDY-SCAN 01/15/2017 Results for this 2:33 PM [employer] procedure are in the results section. SLEEP STUDY-SCAN 01/14/2017 Results for this 2:47 PM [employer] procedure are in the results section. NV NJX ANES&/STRD W/IMG Routine 12/05/2016 Lumbar radiculopathy Results for this TFRML EDRL LMBR/SAC EA LV 4:07 PM [employer] Degeneration of lumbar or procedure are in the lumbosacral results section. intervertebral disc NV NJX ANES&/STRD W/IMG Routine 12/05/2016 Lumbar radiculopathy Results for this TFRML EDRL LMBR/SAC 1 LVL 4:07 PM [employer] Degeneration of lumbar or procedure are in the lumbosacral results section. intervertebral disc Results from Last 3 Months BASIC METABOLIC PANEL (02/21/2017 3:45 AM)Only the most recent of 17 results within the time period is included. Component Value Range Sodium 142 137-147 MMOL/L Potassium 4.1 3.5-5.1 MMOL/L Chloride 108 98-110 MMOL/L CO2 25 21-30 MMOL/L Anion Gap 9 3-12 Glucose 80 70-100 MG/DL Blood Urea Nitrogen 22 7-25 MG/DL Creatinine 0.78 0.4-1.00 MG/DL Calcium 8.7 8.5-10.6 MG/DL eGFR [...] Please contact the Clinical Pharmacist for questions. MAGNESIUM (02/21/2017 3:45 AM)Only the most recent of 21 results within the time period is included. Component Value Range Magnesium 2.1 1.6-2.6 mg/dL Specimen Blood CBC AND DIFF (02/21/2017 3:45 AM)Only the most recent of 26 results within the time period is included. Component Value Range White Blood Cells 5.0 4.5-11.0 K/UL RBC 2.84 (L) 4.0-5.0 M/UL Hemoglobin 9.5 (L) 12.0-15.0 GM/DL Hematocrit 28.8 (L) 36-45 % MCV 101.3 (H) 80-100 FL MCH 33.5 26-34 PG MCHC 33.1 32.0-36.0 G/DL RDW 18.2 (H) 11-15 % Platelet Count 47 (L) 150-400 K/UL MPV 8.5 7-11 FL Neutrophils 73 41-77 % Lymphocytes 20 (L) 24-44 % Monocytes 7 4-12 % Eosinophils 0 0-5 % Basophils 0 0-2 % Absolute Neutrophil Count 3.60 1.8-7.0 K/UL Absolute Lymph Count 1.00 1.0-4.8 K/UL Absolute Monocyte Count 0.40 0-0.80 K/UL Absolute Eosinophil Count 0.00 0-0.45 K/UL Absolute Basophil Count 0.00 0-0.20 K/UL Specimen Blood COMPREHENSIVE METABOLIC PANEL (02/20/2017 2:13 AM)Only the most recent of 15 results within the time period is included. Component Value Range Sodium 138 137-147 MMOL/L Potassium 4.1 3.5-5.1 MMOL/L Chloride 107 98-110 MMOL/L Glucose 183 (H) 70-100 MG/DL Blood Urea Nitrogen 16 7-25 MG/DL Creatinine 0.68 0.4-1.00 MG/DL Calcium 8.3 (L) 8.5-10.6 MG/DL Total Protein 4.8 (L) 6.0-8.0 G/DL Total Bilirubin 0.3 0.3-1.2 MG/DL Albumin 2.8 (L) 3.5-5.0 G/DL Alk Phosphatase 171 (H) 25-110 U/L AST (SGOT) 26 7-40 U/L CO2 27 21-30 MMOL/L ALT (SGPT) 44 7-56 U/L Anion Gap 4 3-12 eGFR Non >60Comment: >60 mL/min The [...] the Clinical Pharmacist for questions. Specimen Blood IR KYPHOPLASTY/VERTBROPLASTY (02/19/2017 6:39 PM) Impressions Impression: Successful fluoroscopic guided T7, T8, L1, L3, and L5 vertebral augmentation. Review of the MRI demonstrates additional sacral fracture. The sacrum is not completely visualized on this study but the pattern is suggestive of sacral insufficiency fractures. This may be a cause of patient's additional hip pain. This patient may be a candidate for sacroplasty after recovery from her vertebral augmentation. ITodd M.D., the attending interventional radiologist, performed the entire procedure, personally reviewed the images, and formulated the interpretations and opinions expressed in this report. @TT Finalized by Todd Miranda M.D. on 02/20/2017 11:12 AM. Dictated by Todd Miranda M.D. on 02/20/2017 11:07 AM. Narrative Fluoroscopic guided T7, T8, L1, L3, L5 vertebral augmentation Clinical history: Severe back pain localized to the mid back and low back with new fractures noted on MRI. History of osteoporosis. COMPARISON STUDY: MRI February 17, 2017, February 08, 2017 Radiation dose: 1253 mgy Medication: 0.25% bupivacaine Anesthesia: General Procedure: The risks and benefits were discussed and informed consent was obtained. The patient was positioned prone and her lower back was prepped and draped in the usual sterile fashion. Bupivacaine 0.25% was used for local anesthesia posterior to the left T7 pedicle. A dermatotomy was then made with an 11 blade. Following this, an 11-gauge guide needle was advanced into the posterior vertebral body using a transpedicular approach under fluoroscopic guidance. This was confirmed with frontal and lateral views. In the exact similar fashion , left-sided needles were placed at T8, L1, L3, and L5. The bone cement was prepared. A curved needle was then advanced through the guide needle into the vertebral body in order to create a cavity at each level. When the cement was of satisfactory viscosity, it was injected through the L5 curved needle under continuous fluoroscopic monitoring into the vertebral body until there was satisfactory fill. Following this, cement was then subsequently injected into the L3, L1, T8, and T7 levels. Following this, The needles were removed. Sterile dressings were then applied. The patient tolerated the procedure well. Findings: Mild superior endplate compression fractures noted T7, T8, L3, and L5 with a moderate fracture L1. Following vertebral augmentation, there is excellent distribution of bone cement throughout the T7, T8, and L3 vertebral bodies as well as good superior and inferior endplate distribution at L1. More notable superior endplate distribution at the L5 level. No cement is visualized in the disc spaces, spinal canal, or paraspinous soft tissues. Procedure Note Interface, Radiant Results - [facility] Feb 20, 2017 11:15 AM CDT Fluoroscopic guided T7, T8, L1, L3, L5 vertebral augmentation Clinical history: Severe back pain localized to the mid back and low back with new fractures noted on MRI. History of osteoporosis. COMPARISON STUDY: MRI February 17, 2017, February 08, 2017 Radiation dose: 1253 mgy Medication: 0.25% bupivacaine Anesthesia: General Procedure: The risks and benefits were discussed and informed consent was obtained. The patient was positioned prone and her lower back was prepped and draped in the usual sterile fashion. Bupivacaine 0.25% was used for local anesthesia posterior to the left T7 pedicle. A dermatotomy was then made with an 11 blade. Following this, an 11-gauge guide needle was advanced into the posterior vertebral body using a transpedicular approach under fluoroscopic guidance. This was confirmed with frontal and lateral views. In the exact similar fashion , left-sided needles were placed at T8, L1, L3, and L5. The bone cement was prepared. A curved needle was then advanced through the guide needle into the vertebral body in order to create a cavity at each level. When the cement was of satisfactory viscosity, it was injected through the L5 curved needle under continuous fluoroscopic monitoring into the vertebral body until there was satisfactory fill. Following this, cement was then subsequently injected into the L3, L1, T8, and T7 levels. Following this, The needles were removed. Sterile dressings were then applied. The patient tolerated the procedure well. Findings: Mild superior endplate compression fractures noted T7, T8, L3, and L5 with a moderate fracture L1. Following vertebral augmentation, there is excellent distribution of bone cement throughout the T7, T8, and L3 vertebral bodies as well as good superior and inferior endplate distribution at L1. More notable superior endplate distribution at the L5 level. No cement is visualized in the disc spaces, spinal canal, or paraspinous soft tissues. IMPRESSION Impression: Successful fluoroscopic guided T7, T8, L1, L3, and L5 vertebral augmentation. Review of the MRI demonstrates additional sacral fracture. The sacrum is not completely visualized on this study but the pattern is suggestive of sacral insufficiency fractures. This may be a cause of patient's additional hip pain. This patient may be a candidate for sacroplasty after recovery from her vertebral augmentation. I, Todd Miranda M.D., the attending interventional radiologist, performed the entire procedure, personally reviewed the images, and formulated the interpretations and opinions expressed in this report. @TT Finalized by Todd Miranda M.D. on 02/20/2017 11:12 AM. Dictated by Todd Miranda M.D. on 02/20/2017 11:07 AM. TACROLIMUS LEVEL(FK506) (02/18/2017 7:38 AM)Only the most recent of 7 results within the time period is included. Component Value Range Tacrolimus 3.1 NG/ML Specimen Blood MRI T-SPINE WO/W CONTRAST (02/17/2017 10:35 PM) Impressions 1.Acute to subacute T7 and T8 compression deformities resulting in approximately 15% and 40% vertebral body height loss, respectively. No significant spinal canal compromise or cord edema is seen at these levels. 2.Subacute L1 compression deformity resulting in approximately 50% vertebral body height loss. There is mild retropulsion of the posterior superior endplate cortex which results in mild effacement of the thecal sac though no significant spinal canal or spinal cord compromise. 3.Stable treated compression deformities at T11 and T12. Approved by Mayank Garvin M.D. on 02/18/2017 9:45 AM By my electronic signature, I attest that I have personally reviewed the images for this examination and formulated the interpretations and opinions expressed in this report Finalized by Orlin Dailey M.D. on 02/18/2017 10:20 AM. Dictated by Mayank Garvin M.D. on 02/18/2017 8:32 AM. Narrative EXAM: MRI THORACIC SPINE HISTORY: History of multiple compression fracture, presented today with new onset bilateral neuropathic pain along dermatomesT5-T8, please evaluate for any compression fracture/deformity, Technique: Multiple sagittal and axial MR sequences were obtained of the thoracic spine with and without gadolinium contrast. Comparison: MRI thoracic spine September 01, 2016, PET/CT January 01, 2017, and thoracic spine CT August 29, 2016 FINDINGS: There is normal thoracic alignment. Osteopenia was demonstrated on previous CT examinations. There is diffuse fatty infiltration of the marrow noted on this examination. There are new acute or subacute compression deformities at T7 and T8 resulting in approximately 15% and 40% vertebral body height loss, respectively. No significant retropulsion is seen at these levels. The edema and extrinsic compression of T8 results in mild lateral effacement of the thecal sac though no significant spinal canal stenosis. Vertebroplasty changes noted at T11 and T12 with stable mild compression deformities and mild retropulsed posterior cortex of the superior endplates at these levels. There is a subacute new compression deformity seen at L1 which results in approximately 50% vertebral body height loss. There is mild retropulsion of the posterior superior endplate cortex resulting in mild spinal canal stenosis at this level. The thoracic cord is normal in size and signal. 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 Compression of epidural fat at T8 results in mild spinal canal stenosis at T8- T9. Status post cholecystectomy with incomplete evaluation of mild intra and extra hepatic bile duct dilatation. Mild cardiomegaly. Procedure Note Interface, Radiant Results - Tue Feb 18, 2017 10:23 AM CDT EXAM: MRI THORACIC SPINE HISTORY: History of multiple compression fracture, presented today with new onset bilateral neuropathic pain along dermatomesT5-T8, please evaluate for any compression fracture/deformity, Technique: Multiple sagittal and axial MR sequences were obtained of the thoracic spine with and without gadolinium contrast. Comparison: MRI thoracic spine September 01, 2016, PET/CT January 01, 2017, and thoracic spine CT August 29, 2016 FINDINGS: There is normal thoracic alignment. Osteopenia was demonstrated on previous CT examinations. There is diffuse fatty infiltration of the marrow noted on this examination. There are new acute or subacute compression deformities at T7 and T8 resulting in approximately 15% and 40% vertebral body height loss, respectively. No significant retropulsion is seen at these levels. The edema and extrinsic compression of T8 results in mild lateral effacement of the thecal sac though no significant spinal canal stenosis. Vertebroplasty changes noted at T11 and T12 with stable mild compression deformities and mild retropulsed posterior cortex of the superior endplates at these levels. There is a subacute new compression deformity seen at L1 which results in approximately 50% vertebral body height loss. There is mild retropulsion of the posterior superior endplate cortex resulting in mild spinal canal stenosis at this level. The thoracic cord is normal in size and signal. 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 Compression of epidural fat at T8 results in mild spinal canal stenosis at T8- T9. Status post cholecystectomy with incomplete evaluation of mild intra and extra hepatic bile duct dilatation. Mild cardiomegaly. IMPRESSION 1. Acute to subacute T7 and T8 compression deformities resulting in approximately 15% and 40% vertebral body height loss, respectively. No significant spinal canal compromise or cord edema is seen at these levels. 2. Subacute L1 compression deformity resulting in approximately 50% vertebral body height loss. There is mild retropulsion of the posterior superior endplate cortex which results in mild effacement of the thecal sac though no significant spinal canal or spinal cord compromise. 3. Stable treated compression deformities at T11 and T12. Approved by Mayank Garvin M.D. on 02/18/2017 9:45 AM By my electronic signature, I attest that I have personally reviewed the images for this examination and formulated the interpretations and opinions expressed in this report Finalized by Orlin Dailey M.D. on 02/18/2017 10:20 AM. Dictated by Mayank Garvin M.D. on 02/18/2017 8:32 AM. LIPASE (02/17/2017 2:45 AM) Component Value Range Lipase 18 11-82 U/L Specimen Blood AMYLASE (02/17/2017 2:45 AM) Component Value Range Amylase 25 24-100 U/L Specimen Blood CMV QUANT PCR-BLOOD (02/14/2017 2:40 PM)Only the most recent of 9 results within the time period is included. Component Value Range CMV DNA Quant PCR Negative for CMV CMV Comment-Blood This assay uses analyte specific reagents to detect CMV DNA in plasma or fluid. It has not been cleared or approved by the US Food and Drug Administration. The performance characteristics were determined by the [facility]. Results should be correlated with clinical findings. Specimen Blood 2-D + DOPPLER ECHOCARDIOGRAM (02/14/2017 [...] Retic, Absolute 47.9 30-94 K/UL Specimen Blood PROCEDURE RECORD-SCAN (02/04/2017 1:00 PM) [...] AM) Narrative Ordered by an unspecified provider. IMMUNOGLOBULIN G (IGG) (01/21/2017 2:40 AM)Only the most recent of 2 results within the time period is included. Component Value Range IgG 295 (L) 762-1488 MG/DL Specimen Blood PHOSPHORUS (01/21/2017 2:40 AM)Only the most recent of 5 results within the time period is included. [...] % FEV1-Pre 1.61 L FEV1-%Pred-Pre 59 % HLY6629-Pom 1.13 L/sec GDB4527-%Pred-Pre 48 % VCSVC-Pre 2.08 L ICSVC-Pre 1.74 [...] The performance characteristics were determined by the [facility]. Results should be correlated with [...] Aspergillus Galactomannan EIA is a product of [employer] and is FDA approved for in vitro diagnostic use. Testing Performed At: [email or web address] [address] [place] [address] [place] [id number] CLIA ID: [id number] Specimen Blood FUNGITELL (01/17/2017 12:30 PM) Component Value Range Fungitell <31 Unit: pg/mL Interpretation: The Fungitell assay does not detect certain fungal species such as the genus Cryptococcus (Naseem et al. 1991) which produces very low levels of (1-3)-Mlqz-V-Xgmdvg. The assay also does not detect the Zygomycetes such as Absidia, Mucor and Rhizopus (Yohana et al. 1994) which are not known to produce (1-3)-Qnbw-Y-Iequam. In addition, the yeast phase of Blastomyces dermatitidis produces little (1-3)-Quin-M-Hdjgtv and may not be detected by the [...] in vitro diagnostic use. Testing Performed At: [email or web address] [address] [place] [address] CLIA ID: [id number] Specimen Blood SURGICAL PATHOLOGY (01/17/2017 12:26 PM) Component Value Range PATHOLOGY REPORT [email or web address] Zayda Baca MD, PhD, Director of Anatomic Pathology Department of Pathology and Laboratory Medicine [address] [place] [phone] Surgical Pathology Office: [phone] SURGICAL PATHOLOGY REPORT NAME: ASHLEY WOLFE SURG PATH #: [id number] MR #: [id number] SPECIMEN CLASS: SR BILLING #: [id number] ALT ID #: LOCATION: 41 DATE OF [...] developed and its performance characteristics determined by [email or web address]. It has not been cleared or approved by the U.S. Food and Drug Administration.-Results should be used in conjunction with clinical findings, and should not form the sole basis for a diagnosis or treatment decision.- PCR tests are performed pursuant to a license agreement with [employer]. Testing Performed At: [email or web address] [address] [place] [id number] CLIA ID: [id number] Specimen Bronchial Washing RUL ASPERGILLUS GALACTOMANN (01/16/2017 [...] Aspergillus Galactomannan EIA is a product of [employer] and is FDA approved for in vitro diagnostic use. Testing Performed At: [email or web address] [place] [address] CLIA ID: [id number] Specimen Bronchial Washing RUL HERPES SIMPLEX PCR - NON-BLOOD (01/16/2017 4:17 PM) Component Value Range Specimen, Herpes BRONCHIAL ALVEOLAR LAVAGE Herpes Simplex PCR Negative for HSV-1 and 2 This assay uses analyte specific reagents to detect herpes simplex 1 and 2 DNA. It has not been cleared or approved by the Food and Drug Administration. The performance characteristics were determined by the [facility]. Results should be correlated with [...] The performance characteristics were determined by the [facility]. Results should be correlated with clinical findings. Specimen Fluid - Bronchial Alveolar Lavage GRAM STAIN (01/16/2017 4:07 PM) Component Value Range Battery Name GRAM STAIN Specimen Description BRONCHIAL ALVEOLAR LAVAGE, RUL Special Requests NONE Gram Stain MODERATE NEUTROPHILS NO ORGANISMS SEEN Report Status FINAL 01/16/2017 Specimen Bronchial Alveolar Lavage,RUL CULTURE-FUNGAL,OTHER (01/16/2017 4:07 PM) Component Value Range Battery Name FUNGUS CULTURE Specimen Description BRONCHIAL ALVEOLAR LAVAGE, RUL Special Requests NONE Culture NO GROWTH OF FUNGUS AT 4 WEEKS Report Status FINAL 02/17/2017 Specimen Bronchial Alveolar Lavage,RUL CULTURE-RESP,LOWER W/SENSITIVITY (01/16/2017 [...] Wolfe Procedure Date: 01/16/2017 3:38 PM CSN: [id number] Date of : 1950 Gender: Female Attending Physician: Janusz Aragon MD Procedure: Bronchoscopy Indications: Bilateral infiltrate Providers: Janusz Aragon MD (Doctor), WILLIAM Adkins (Fellow), Camila Bowen RN (Nurse), Sher Pantoja, Accelerator Technician (Techn ician) Referring Physician: Elias Valente MD [...] Range TSH 4.417 0.35-5.00 MCU/ML Specimen Blood NON-WASTEWATER SUPERVISOR CYTOLOGY (BODY FLUIDS/TISSUE) (01/16/2017 10:09 AM) Component Value Range Cytology [facility] [email or web address] Zayda Baca MD, Director Cytopathology Department of Pathology and Laboratory Medicine [address] [place] [phone] Office: [phone] CYTOLOGY REPORT NAME: ASHLEY WOLFE CYTOLOGY #: [id number] MR #: [id number] ALT ID #: BILLING #: [id number] LOCATION: DATE OF PROCEDURE: 01/16/2017 10:09 AGE: [...] and/or other material indicated in this report. af/01/17/2017 +++Electronically Signed Out By Mariella Solis M.D.+++ Cervical cytology is a SCREENING TEST primarily for detecting cancers and precancerous lesions. This screening test has a well documented false negative rate. Your patient's pap test results should be interpreted in conjunction with history and clinical findings. Reported using [facility] terminology. ################################################## ###################### CT CHEST WO [...] - Wed Jan 15, 2017 3:16 PM VACUUM TESTER CANS CT CHEST Clinical Indication: Female, 66 years [...] POS CONSISTENT WITH HISTORICAL ANTIBODY Unit Number [id number] Blood Component Type RBC,ADSOL,LEUKO REDUCED,IRRADIATED Unit Division 0 Status OF Unit TRANSFUSED Transfusion Status OK TO TRANSFUSE Crossmatch Result COMPATIBLE, GEL Antigen Type (Units) [place] antigen NEG, Specimen Blood METHEMOGLOBIN (01/13/2017 6:05 [...] Color,UA GIOVANNY Turbidity,UA 2+ (A) CLEAR-CLEAR Specific [place]-Urine 1.018 1.003-1.035 pH,UA 5.0 5.0-8.0 Protein,UA 2+ [...] vertex. Procedure Note Interface, Radiant Results - Mon Jan 13, 2017 2:13 [address] TESTER CANS CT HEAD HISTORY: HEAD INJURY MODERATE OR [...] Results - FriJan 10, 2017 3:59 PM VACUUM TESTER CANS CTA Chest Clinical Indication: Concern for pulmonary [...] CATHETER SITE:Left internal jugular vein TECHNIQUE: Michel Aervalo M.D, the attending radiologist, was present for [...] - [place] Jan 09, 2017 10:47 AM VACUUM TESTER CANS TUNNELED CATHETER REMOVAL CLINICAL INDICATION: Completion of [...] Component Value Range PATHOLOGY REPORT [facility] [email or web address] Zayda Baca MD, PhD, Director of Anatomic Pathology Department of Pathology and Laboratory Medicine [address] [place] [phone] Surgical Pathology Office: [phone] SURGICAL PATHOLOGY REPORT NAME: ASHLEY WOLFE SURG PATH #: [id number] MR #: [id number] ALT ID #: LOCATION: IR DATE OF [...] indicated in this report. +++Electronically Signed Out+++ ksw/01/01/2017 Interpreted by: Jasmyne Yap MD, Attending Physician [...] submitted in cassette B1 after decalcification. (tn) trejo/01/01/2017 Cr Allan D.O. Reside Microscopic Description: CBC [...] of Pathology and Laboratory Medicine of the [facility] ([employer]) in compliance with CLIA'88 regulations. Some of these tests rely on the use of "analyte specific reagents" and are subject to specific labeling requirements by the FDA. Known positive and negative control tissues demonstrate appropriate staining. This testing was developed by the Department of Pathology and Laboratory Medicine of the [facility]. It has not been cleared [...] fentanyl Procedure Note Interface, Radiant Results - [facility] Jan 02, 2017 2:48 PM VACUUM TESTER CANS Bone marrow aspiration, bone marrow biopsy with [...] Component Value Range PATHOLOGY REPORT [facility] [email or web address] Jasmyne Yap MD, Director of Clinical Laboratory Marvin Joseph MD, Director of Flow Cytometry Laboratory Department of Pathology and Laboratory Medicine [address] [place] [phone] Surgical Pathology Office: [phone] FLOW CYTOMETRY REPORT NAME: ASHLEY WOLFE SURG PATH #: [id number] MR #: [id number] SPECIMEN CLASS: LC BILLING #: [id number] ALT ID #: LOCATION: DATE OF PROCEDURE: [...] Associated Markers (% Positive Cells): CD19=0; CD20=0; [place]=0; Lambda=0; [place]:Lambda ratio=na T Cell Associated Markers (% Positive Cells): CD2=93; CD3=78; CD4=24; CD5=78; CD7=90; CD8=62; CD4:CD8 ratio=0.4 Miscellaneous Markers (% Positive Cells): CD10=0; CD38=79; QU58=192; CD56=27 Cell Viability (%): na Number of Cells Analyzed: [id number] Total Number of Markers: 16 Summary of Marker Combinations: [place]/Lambda/5/10/19/45/38/20; 2/7/5/3/4/45/56/8 This test was developed and its performance characteristics determined by the [facility]. It has not been cleared or approved by the U.S. Food and Drug Administration (FDA). The FDA has determined that such clearance or approval is not necessary. BONE MARROW BIOPSY IR (01/01/2017 1:06 PM) Component Value Range Bone Marrow BX IR SEE PATHOLOGY REPORT CHROMOSOMES FISH DNA PROBE (01/01/2017 1:06 PM) Component Value Range Chromosomes Fish DNA SEE INKER MACHINE FOR REPORT Probe Specimen Bone Marrow CHROMOSOMES BONE MARROW (01/01/2017 1:06 PM) Component Value Range Chromosomes Bone Marrow SEE INKER MACHINE FOR REPORT Specimen Bone Marrow LEUKEMIA/LYMPHOMA PNL, [...] abnormality. 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 All other common clinically significant alloantibodies were [...] and/or other material indicated in this report. CT ABD/PELV W CONTRAST (12/25/2016 7:29 PM) [...] images from the PET exam of Dece 2015.Plain film exams of the lumbar spine November [...] 2016. Procedure Note Interface, Radiant Results - [facility] Dec 26, 2016 7:37 [address]UM TESTER CANS CT ABDOMEN AND PELVIS Clinical Indication: Female, [...] 29.0 28-63 % CD16/56% 10.1 4-25 % GA57-Rvsoq 0 (L) 6-27 % CD3 Count [phone] UL CD8 Count [phone] UL CD4 Count 276 (L) [phone] UL [...] Mclaughlin et al. Am J. Cardiol. 2008, 101:1634-6865. The "goal" should be less than 130 [...] Patient has decided to proceed with treatment/procedure. [place] Protocol: Relevant documents: relevant documents present and [...] to verify the correct patient, procedure, equipment, technical support analyst and site/side marked as required Procedures Details: [...]
[2017-02-24 17:58] VITALS: BP 101/68
== END | disposition short-term general hospital (02) ==
LOC: ED 14:49
DX: M54.89 Other dorsalgia (principal); Z94.81 Bone marrow transplant status; C83.18 Mantle cell lymphoma, lymph nodes of multiple sites; M25.551 Pain in right hip; M25.552 Pain in left hip
CPT/HCPCS: 96372; 99283; 99284

== ENCOUNTER → 2017-03-08 | Emergency (ER) | payer OTHER ==
[~2017-03-08] VITALS: Ht 170.2 cm; Wt 66.0 kg
[~2017-03-08] MED LIST changes: +CEFEPIME 2,000 MG in SODIUM CHLORIDE 100 ML IV ONE; +D50KC PO; -HYDROmorphone 2 MG/ML (DILAUDID) 1 ML SYRINGE IM ONE; -[UNRECOGNIZED DRUG - CODE] PO
--- OUTSIDE RECORDS SUMMARY | 2017-03-08 13:20 | XMS REPORT | Continuity of Care Document ---
Author Author [facility] Organization [facility] Address Unknown Phone Unavailable Care Team Providers Care Ccie Name Role Phone [place] PCP [phone] Source Comments Some departments are not documenting in the electronic medical record. If you do not see the information that you expected, contact Release of Information in the Health Information Management department at [phone] for further assistance in locating additional records.[facility] Active Allergies and Adverse Reactions Allergen [...] daily. Active (GLYCOLAX; MIRALAX) 17 gram/dose powder nicotine (NICODERM CQ Apply 1 Patch to top of 28 Patch 2 11/20/19 Active STEP 2) 14 mg/day patch skin as directed daily. 17 montelukast (SINGULAIR) Take 1 Tab by mouth at 30 Tab 11 11/20/19 Active 10 mg tablet bedtime daily. 17 rOPINIRole (REQUIP) 1 mg Take 1 [...] tablet bedtime as needed for 17 Constipation. AMITRIPTYLINE HCL Apply 100 g topically to [...] mg capsule daily. Take with food. 17 rifAMPin (RIFADINE) 300 Take 2 Caps by [...] 02/15/20 Active mg tablet twice daily. 17 valGANciclovir (VALCYTE) Take 2 Tabs by mouth 120 Tab 1 03/05/20 Active 450 mg tablet twice daily with meals. 17 metoprolol tartrate Take 0.5 Tabs by mouth 30 Tab 1 03/05/20 Active (LOPRESSOR) 25 mg tablet twice daily. 17 prednisone (DELTASONE) 10 Take 1 Tab by mouth 30 Tab 1 03/05/20 Active mg tablet daily. 17 azithromycin (ZITHROMAX) Three times weekly on 12 Tab 1 03/05/20 Active 250 mg tablet Mon, Fri, Friday 17 ruxolitinib (JAKAFI) 10 Take 1 Tab by mouth twice 60 Tab 0 03/06/20 Active mg tablet daily. 17 oxyCODONE (OXYCONTIN) 60 Take 1 Tab by mouth every 50 Tab 0 03/06/20 Active mg tablet 8 hours 17 oxyCODONE (ROXICODONE, Take 1 Tab by mouth every 105 Tab 0 03/06/20 Active OXY-IR) 15 mg tablet 3 hours as needed (Pain) 17 metoprolol tartrate Take 0.5 Tabs by mouth 30 Tab 1 11/20/19 Discontin (LOPRESSOR) 25 mg tablet twice daily. 17 17 ued azithromycin (ZITHROMAX) 1 Tab three times weekly. 13 Tab 11 11/20/19 03/03/20 Discontin 250 mg tablet . 17 17 ued acyclovir (ZOVIRAX) 800 Take 1 Tab by mouth every 60 Tab 1 01/16/20 03/03/20 Discontin mg tablet 12 hours. 17 17 ued tacrolimus (PROGRAF) 0.5 Take 1 Cap by mouth twice 180 Cap 3 01/16/20 02/26/20 Discontin mg capsule daily. 17 17 ued collagenase (SANTYL) 250 Apply to pressure ulcer 30 g 0 01/16/20 Discontin unit/g topical ointment daily 17 17 ued oxyCODONE SR (OXYCONTIN) Take [...] as needed 17 17 ued for Pain oxyCODONE (OXYCONTIN) 30 One tab by mouth every 8 90 Tab 0 02/14/20 03/03/20 Discontin mg tablet hours 17 17 ued oxyCODONE (ROXICODONE, Take 1 Tab by mouth every 120 Tab 0 02/14/20 03/03/20 Discontin OXY-IR) 15 mg tablet 4 hours as needed for 17 17 ued Pain posaconazole EC (NOXAFIL) Take 3 Tabs by mouth 90 Tab 2 02/15/2006/05 Discontin 100 mg tablet daily with breakfast. ON 17 17 ued HOLD 02/14 WITH ELEVATED ALT prednisone (DELTASONE) 5 Take 2 Tabs by mouth 300 Tab 2 02/15/2006/05 Discontin mg tablet twice daily with meals. 17 17 ued DECREASED 02/14. ruxolitinib (JAKAFI) 10 Take 1 Tab by mouth twice 02/15/20 03/06/20 Discontin mg tablet daily. 17 17 ued prednisone (DELTASONE) 10 Take 1 Tab by mouth 0 02/22/20 03/05/20 Discontin mg tablet daily. Decreased 02/21. 17 17 ued tacrolimus (PROGRAF) 0.5 Take 1 Cap by mouth twice 60 Cap 3 02/26/20 03/03/20 Discontin mg capsule daily. 17 17 ued metoprolol tartrate Take 0.5 Tabs by mouth 30 Tab 1 02/26/20 Discontin (LOPRESSOR) 25 mg tablet twice daily. 17 17 ued oxyCODONE (OXYCONTIN) 60 Take 1 Tab by mouth every 0 04/17/20 04/19/ 20 Discontin mg tablet 8 hours Earliest Fill 17 17 ued Date: 03/03/17 oxyCODONE (ROXICODONE, Take 1 Tab by mouth every 0 03/03/20 03/05/20 Discontin OXY-IR) 15 mg tablet 3 hours as needed (Pain) 17 17 ued Earliest Fill Date: 03/03/17 valGANciclovir (VALCYTE) Take 2 Tabs by mouth 30 Tab 1 03/03/20 Discontin 450 mg tablet twice daily with meals. 17 17 ued tacrolimus (PROGRAF) 0.5 Take 1 Cap by mouth daily 180 Cap 3 03/03/20 03/05/20 Discontin mg capsule for 6 days. 17 17 ued azithromycin (ZITHROMAX) Take 2 Tabs by mouth 6 Tab 0 03/03/2003/05 Discontin 250 mg tablet three times weekly. 17 17 ued tacrolimus (PROGRAF) 0.5 Take 1 Cap by mouth daily 2 Cap 0 03/07/20 03/06/20 Discontin mg capsule for 2 days. 17 17 ued ruxolitinib (JAKAFI) 10 Take 1 Tab by mouth twice 60 Tab 3 03/05/20 03/05/20 Discontin mg tablet daily. 17 17 ued oxyCODONE SR (OXYCONTIN) Take 1 Tab by mouth every 50 Tab 0 03/05/20 03/05/20 Discontin 60 mg tablet 8 hours 17 17 ued oxyCODONE (ROXICODONE, Take 1 Tab by mouth every 105 Tab 0 03/05/20 03/05/20 Discontin OXY-IR) 15 mg tablet 3 hours as needed (Pain) 17 17 ued oxyCODONE (OXYCONTIN) 60 Take 1 Tab by mouth every 50 Tab 0 03/05/20 03/05/20 Discontin mg tablet 8 hours 17 17 ued oxyCODONE (ROXICODONE, Take 1 Tab by mouth every 105 Tab 0 03/05/20 03/05/20 Discontin OXY-IR) 15 mg tablet 3 hours as needed (Pain) 17 17 ued oxyCODONE (ROXICODONE, Take 1 Tab by mouth every 105 Tab 0 03/05/20 03/05/20 Discontin OXY-IR) 15 mg tablet 3 hours as needed (Pain) 17 17 ued oxyCODONE (OXYCONTIN) 60 Take 1 Tab by mouth every 50 Tab 0 03/05/20 03/05/20 Discontin mg tablet 8 hours 17 17 ued oxyCODONE (OXYCONTIN) 60 Take 1 Tab by mouth every 50 Tab 0 03/05/20 03/06/20 Discontin mg tablet 8 hours 17 17 ued oxyCODONE (ROXICODONE, Take 1 Tab by mouth every 105 Tab 0 03/05/20 03/06/20 Discontin OXY-IR) 15 mg tablet 3 hours as needed (Pain) 17 17 ued Active Problems Problem Noted Date Nuclear cataract of both eyes 03/07/2017 Debility 03/04/2017 Pain 02/16/2017 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 ([facility]) 2016 Closed compression fracture of third lumbar vertebra ([facility]) 02/14/2017 Closed compression fracture of fifth lumbar vertebra ([facility]) 02/14/2017 Elevated ALT measurement 02/14/2017 Hyperkalemia 02/05/2017 Osteoporosis 02/05/2017 Bilateral dry eyes 01/23/2017 Decubitus ulcer of left buttock, stage 2 12/25/2016 Hemorrhoids 12/11/2016 Hypogammaglobulinemia ([facility]) 12/04/2016 Constipation 12/04/2016 Tobacco abuse counseling 11/20/2016 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 ([facility]) 11/20/2016 Major depressive disorder, recurrent, in partial remission ([facility]) 09/17/2016 Major depressive disorder, recurrent episode, mild ([facility]) 09/14/2016 Steroid myopathy 09/13/2016 Compression fracture 09/06/2016 Acute pain due to trauma 09/04/2016 Closed fracture of proximal end of right humerus with nonunion 08/30/2016 Low back pain 08/23/2016 Fatigue 08/12/2016 Hyperpigmentation 08/07/2016 Vertigo 08/07/2016 Atrial flutter, paroxysmal ([facility]) 08/05/2016 Overview: 08/12/16-Comprehensive EPS/Radiofrequency ablation of atrial flutter 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 Anemia due to chronic illness 07/29/2016 Restless leg syndrome 07/29/2016 Sciatica 07/26/2016 Non-rheumatic mitral regurgitation 07/05/2016 Paroxysmal atrial fibrillation (HCC) 07/01/2016 Last Assessment & Plan: The patient has a history of periprocedural afib sp dccv during her CTI ablation in 07/2016 and post procedural afib 2 days later. She was to continue AAD therapy with Amio 200 mg daily, and follow up with Dr. Gardy. She has been since been lost to follow up. Since 07/2016 she has been dc'd of her Amio and anticoagulation. The patient has been asymptomatic of her atrial arrhthymias in the past, in which I recommended further evaluation with a looping e business consultant. She is to follow up with Dr. Grady in 4 weeks to discuss results. If she has recurrent AF, OAC will need to be addressed (CHADSVASC1 for female), and if the burden is high, discussing treatment options of AAD therapy vs. Catheter based ablation. 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[facility]) 08/09/2016 12/25/2016 Decreased appetite 08/01/2016 11/20/2016 Elevated white blood cell count 07/29/2016 08/07/2016 Hypomagnesemia 07/29/2016 12/25/2016 Nausea 07/23/2016 08/07/2016 Acute respiratory failure with hypoxia ([facility]) 07/05/2016 07/17/2016 Pleural effusion, bilateral 07/05/2016 07/17/2016 QT prolongation 07/05/2016 11/20/2016 NANO (acute kidney injury) ([facility]) 06/30/2016 07/17/2016 Hypoxia 06/30/2016 07/29/2016 SOB (shortness of breath) 06/30/2016 11/20/2016 Hypotension 06/21/2016 11/20/2016 Oral mucositis (ulcerative) due to antineoplastic therapy 06/21/201607/17 Diarrhea 06/20/2016 07/17/2016 Postural dizziness 06/20/2016 07/17/2016 Hypokalemia 06/20/2016 11/20/2016 Syncope 06/17/2016 11/20/2016 Fall 06/15/2016 11/20/2016 Overview: Patient fell on 08/06/16 Conditioning chemotherapy prior to peripheral blood stem cell transplant 06/17/2016 Orthostatic hypotension 05/23/2016 12/25/2016 Pancytopenia due to antineoplastic chemotherapy ([facility]) 05/11/20162015 Nausea 05/05/2016 07/17/2016 On antineoplastic chemotherapy 03/26/2016 08/26/2016 Most Recent Encounters Date Type Specialty Providers Description 03/07/2017 Office Visit Ophthalmology Bee Muñoz MD Dry eye syndrome, bilateral (Primary Dx); Bilateral dry eyes; Nuclear cataract of both eyes 03/06/2017 Telephone Oncology Shahida Roy RN BMT Follow-up 03/06/2017 Orders Only Oncology Shahida Roy RN 03/05/2017 Orders Only Oncology Yesi Cerna APRN 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[facility]) (Primary Dx) 03/03/2017 [facility] Isaura Nur MD Debility - Encounter 03/06/2017 02/27/2017 Documentation Oncology Destiny Bsuh MD 02/26/2017 Screening Form 02/25/2017 Orders Only Oncology Yesi Son APRN 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) 02/24/2017 [facility] Lydia Partida MD Fatigue - Encounter Surjit Phipps MD 03/03/2017 Vicki Kimball MD 02/24/2017 Telephone Oncology Shahida Roy RN BMT Follow-up 02/24/2017 Telephone Oncology Kavya Santillan, Care Coordination RN 02/21/2017 Orders Only Oncology Bebeto Carey APRN History of stem cell transplant (HCC) (Primary Dx) 02/19/2017 Anesthesia Radiology Chuck Tapia MD Event 02/17/2017 Telephone Anesthesia Pain Asim Sheets MD Appointment 02/17/2017 Screening Form 02/16/2017 [facility] Demarco Bowman MD Pain - Encounter Carmelo Garcia MD 02/21/2017 02/16/2017 Telephone Oncology Maira Turner, ARIEL BMT Follow-up 02/14/2017 Office Visit Oncology Vicki [...] (HCC) 02/14/2017 Office Visit Infectious Diseases Sandrine Leahy DO Mycobacterium avium complex (HCC) (Primary Dx); 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) 02/14/2017 [facility] Cardiology Vicki Kimball MD Encounter 02/14/2017 Office Visit Cardiology Edith Buckley MD New To Provider - discuss Tanja Saleem PA-C med changes 02/14/2017 Orders Only Oncology Sherice Akbar, PHARMD 02/14/2017 Documentation Cardiology Bobbi Desai Other - event monitor Enrollment confirmed-CardioLabs 02/14/2017 Documentation Oncology Manuel Godinez MD 02/13/2017 [facility] Burn Surgery / Burn Care [...] for Palliative Care appt 02/08/2017 [facility] Radiology Edith Buckley MD Encounter 02/08/2017 Ancillary Oncology Edith Buckley MD H/O stem cell transplant Orders (HCC) (Primary Dx) 02/07/2017 Screening Form 02/06/2017 [facility] Burn Surgery / Burn Care Emily Puente [...] Oncology Kavya Santillan RN 01/31/2017 [facility] Radiology Vicki Kimball MD Encounter 01/31/2017 [facility] Burn Surgery / Burn Care Emily Puente APRN Encounter 01/30/2017 Office Visit Pulmonology Mat Rothman MD Lung nodule ( Primary Dx); Bronchiolitis obliterans syndrome (HCC); 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); Tobacco abuse counseling; Steroid-induced myopathy 01/30/2017 [facility] Radiology Asim Sheets MD Encounter 01/30/2017 Procedure [...] Case Janusz Aragon MD 01/15/2017 [facility] Vicki Kimball MD Bronchiolitis obliterans - Encounter Reji Castaneda DO syndrome (HCC) 01/23/2017 01/15/2017 Anesthesia Mojgan Goode, LIANET Event 01/15/2017 Orders Only Oncology Edith Buckley MD 01/14/2017 Hospital Encounter 01/11/2017 Hospital Cardiology Vaibhav Astorga DO Encounter 01/01/2017 [facility] Radiology Vicki Kimball MD Encounter Barb Livingston RN Sattarin, Hameed Collins, Zachary S, MD 01/01/2017 Screening Form 12/28/2016 [facility] Rehabilitation Cely Espinal MD Steroid-induced myopathy - Encounter Vaibhav Astorga DO 01/15/2017 12/25/2016 [facility] Edith Buckley MD Thrombocytopenia (HCC) - Encounter Kobi Ho MD 12/28/2016 12/25/2016 [facility] Oncology Edith Buckley MD Encounter 12/25/2016 Office [...] multiple regions (HCC) 12/23/2016 Documentation Oncology Sandrine Hui, ARIEL 12/18/2016 Nurse Only Oncology Vicki Kimball MD [...] region (Primary Dx) 12/18/2016 Refill Oncology Katherin Chnaey RN Mantle cell lymphoma, unspecified body region (Primary Dx) 12/18/2016 Telephone Oncology Kavya Santillan Other RN 12/12/2016 Orders Only Oncology Claudia Ballard, ABHILASH 12/12/2016 Orders Only Oncology Claudia Ballard, ABHILASH 12/11/2016 Hospital Oncology Vicki Kimball MD Encounter 12/11/2016 [...] disease) (HCC) 12/11/2016 Orders Only Oncology Claudia Ballard, ELECTRICIAN REFINERY 12/11/2016 Orders Only Oncology Cassandra Sullivan, PHARMD 12/09/2016 Telephone Oncology Sandrine Hui RN Other - and lab work 12/09/2016 Telephone Oncology Heidy Mejia BMT Follow-up - 180 day Immunizations Name Dates Previously Given Next Due [...] Vital Sign Reading Time Taken Blood Pressure 109/67 03/06/2017 8:12 AM CDT Pulse 79 03/06/2017 8:12 AM CDT Temperature 36.9 C (98.5 F) 03/06/2017 3:27 AM CDT Respiratory Rate 17 02/14/2017 3:22 PM CDT Height 1.715 m (5' 7.5") 03/07/2017 9:38 AM CDT Weight 62.596 kg (138 lb) 03/07/2017 9:38 AM CDT Body Mass Index 21.28 03/07/2017 9:38 AM CDT Oxygen Saturation 92% 03/06/2017 3:27 AM CDT Plan of Care Health Maintenance Due Date Last Done Comments Hepatitis C Screening 1950 Physical (Comprehensive) 1959 Exam Cervical Cancer Screening 1973 Colorectal Cancer 2002 Screening Shingles Vaccine 2012 Breast Cancer Screening 03/27/2017 03/27/2016 Influenza Vaccine 07/18/2017 08/01/2016 Tetanus Vaccine 01/27/2027 01/27/2017 Pertussis Vaccine Completed 01/27/2017 Procedures from Last 3 Months Procedure Name Priority Date/Time Associated Diagnosis Comments TELEMETRY STRIPS-SCAN 02/24/2017 Results for this 1:52 PM CDT procedure are in the results section. PROCEDURE RECORD-SCAN 02/04/2017 Results for this 1:00 [...] OXIMETRY-SCAN 01/23/2017 Results for this 2:53 PM RESISTOR COATER procedure are in the results section. ECG-SCAN 01/23/2017 Results for this 8:26 AM RESISTOR COATER procedure are in the results section. SLEEP STUDY-SCAN 01/20/2017 Results for this 1:07 PM RESISTOR COATER procedure are in the results section. EXERCISE OXIMETRY-SCAN 01/20/2017 Results for this 1:07 PM RESISTOR COATER procedure are in the results section. BRONCHOSCOPY WITH LAVAGE 01/16/2017 Lung infiltrate 3:15 PM RESISTOR COATER EXERCISE OXIMETRY-SCAN 01/15/2017 Results for this 2:34 PM RESISTOR COATER procedure are in the results section. SLEEP STUDY-SCAN 01/15/2017 Results for this 2:33 PM RESISTOR COATER procedure are in the results section. SLEEP STUDY-SCAN 01/14/2017 Results for this 2:47 PM RESISTOR COATER procedure are in the results section. Results from Last 3 Months MICROFLUIDIC ANLYSIS BY INTGRTD COLLECT/ANLYSIS DEV, TEAR OSMOLARITY (2016 10:12 AM) Narrative Interpretation / Result: x Fluctuation in vision Redness Contact Lens discomfortBurning x Light SensitivityItching x Watery eyesFeeling of sand or grit in eye Tired eyes li Tear Osmo OD 292 OS 291 normal CMV QUANT PCR-BLOOD (03/06/2017 12:35 PM)Only the most recent of 10 results within the time period is included. Component Value Range CMV DNA Quant PCR Positive for CMV CMV Bld Copies/mL <500 Please note a change in conversion factor for this test. Starting 07/29/16, based on the WHO standard, 1 copy/mL is equal to 1 IU/mL. Previously, our conversion was 1 copy/mL equals 5.04 IU/mL. Please compare IU/mL and Log of IU/mL results when [place] older [place] [phone] with questions. CMV Comment-Blood This assay uses analyte specific reagents to detect CMV DNA in plasma or fluid. It has not been cleared or approved by the US Food and Drug Administration. The performance characteristics were determined by the [facility]. Results should be correlated with clinical findings. Specimen Blood CBC AND DIFF (03/06/2017 6:15 AM)Only the most recent of 32 results within the time period is included. Component Value Range White Blood Cells 2.4 (L) 4.5-11.0 K/UL RBC 2.39 (L) 4.0-5.0 M/UL Hemoglobin 7.8 (L) 12.0-15.0 GM/DL Hematocrit 23.3 (L) 36-45 % MCV 97.1 80-100 FL MCH 32.6 26-34 PG MCHC 33.6 32.0-36.0 G/DL RDW 22.9 (H) 11-15 % Platelet Count 28 (L) 150-400 K/UL MPV 8.6 7-11 FL Neutrophils 41 41-77 % Lymphocytes 49 (H) 24-44 % Monocytes 8 4-12 % Eosinophils 1 0-5 % Basophils 1 0-2 % Absolute Neutrophil Count 1.00 (L) 1.8-7.0 K/UL Absolute Lymph Count 1.20 1.0-4.8 K/UL Absolute Monocyte Count 0.20 0-0.80 K/UL Absolute Eosinophil Count 0.00 0-0.45 K/UL Absolute Basophil Count 0.00 0-0.20 K/UL Specimen Blood BASIC METABOLIC PANEL (03/06/2017 6:15 AM)Only the most recent of 25 results within the time period is included. Component Value Range Sodium 143 137-147 MMOL/L Potassium 3.5 3.5-5.1 MMOL/L Chloride 109 98-110 MMOL/L CO2 29 21-30 MMOL/L Anion Gap 5 3-12 Glucose 80 70-100 MG/DL Blood Urea Nitrogen 13 7-25 MG/DL Creatinine 0.63 0.4-1.00 MG/DL Calcium 8.3 (L) 8.5-10.6 MG/DL eGFR Non >60Comment: >60 mL/min [...] the Clinical Pharmacist for questions. Specimen Blood PHOSPHORUS (03/06/2017 6:15 AM)Only the most recent of 9 results within the time period is included. Component Value Range Phosphorus 3.4 2.0-4.0 MG/DL Specimen Blood MAGNESIUM (03/06/2017 6:15 AM)Only the most recent of 29 results within the time period is included. Component Value Range Magnesium 2.1 1.6-2.6 mg/dL Specimen Blood CBC (03/05/2017 5:10 AM)Only the most recent of 11 results within the time period is included. Component Value Range White Blood Cells 2.9 (L) 4.5-11.0 K/UL RBC 2.49 (L) 4.0-5.0 M/UL Hemoglobin 8.2 (L) 12.0-15.0 GM/DL Hematocrit 24.1 (L) 36-45 % MCV 97.0 80-100 FL MCH 32.8 26-34 PG MCHC 33.8 32.0-36.0 G/DL RDW 22.7 (H) 11-15 % Platelet Count 27 (L) 150-400 K/UL MPV 9.4 7-11 FL Specimen Blood TYPE & CROSSMATCH (03/03/2017 4:00 AM)Only the most recent of 3 results within the time period is included. Component Value Range Units Ordered 2 Crossmatch Expires 03/06/2017 Record Check FOUND ABO/RH(D) O POS Antibody Screen POS CONSISTENT WITH HISTORICAL ANTIBODY Unit Number [id number] Blood Component Type RBC,ADSOL,LEUKO REDUCED,IRRADIATED Unit Division 0 Status OF Unit REL FROM ALLOC Transfusion Status OK TO TRANSFUSE Crossmatch Result COMPATIBLE, GEL Antigen Type (Units) [place] antigen NEG, Unit Number [id number] Blood Component Type RBC,ADSOL,LEUKO REDUCED,IRRADIATED Unit Division 0 Status OF Unit TRANSFUSED Transfusion Status OK TO TRANSFUSE Crossmatch Result COMPATIBLE, GEL Antigen Type (Units) [place] antigen NEG, Specimen Blood LDH-LACTATE DEHYDROGENASE (02/28/2017 4:25 AM)Only the most recent of 6 results within the time period is included. Component Value Range Lactate Dehydrogenase 317 (H) 100-210 U/L Specimen Blood COMPREHENSIVE METABOLIC PANEL (02/28/2017 4:25 AM)Only the most recent of 16 results within the time period is included. Component Value Range Sodium 138 137-147 MMOL/L Potassium 4.1 3.5-5.1 MMOL/L Chloride 108 98-110 MMOL/L Glucose 84 70-100 MG/DL Blood Urea Nitrogen 14 7-25 MG/DL Creatinine 0.64 0.4-1.00 MG/DL Calcium 8.5 8.5-10.6 MG/DL Total Protein 5.4 (L) 6.0-8.0 G/DL Total Bilirubin 0.3 0.3-1.2 MG/DL Albumin 2.8 (L) 3.5-5.0 G/DL Alk Phosphatase 186 (H) 25-110 U/L AST (SGOT) 37 7-40 U/L CO2 26 21-30 MMOL/L ALT (SGPT) 47 7-56 U/L Anion Gap 4 3-12 eGFR [...] the Clinical Pharmacist for questions. Specimen Blood BLOOD BANK SAMPLE HOLD (02/27/2017 2:40 AM) Component Value Range BB Sample hold IN LAB TACROLIMUS LEVEL([id number]) (02/27/2017 2:40 AM)Only the most recent of 6 results within the time period is included. Component Value Range Tacrolimus <1.0 NG/ML MRI SPINE SACROCOCCYGEAL WO CONTRAST (02/27/2017 12:30 AM) Impressions 1.Prior L5 vertebroplasty with probable new nondisplaced fracture involving the L5 vertebral body just caudal to the bone cement filled fracture line. This finding was discussed with BMT nurse practitioner, Cristal Vargas, via telephone at 10:05 AM on 02/27/2017. 2.Incompletely healed, chronic bilateral sacral alar fractures. No acute sacral fracture identified. 3.Medial left buttock decubitus ulcer. Approved by Sandrine Minaya M.D. on 02/27/2017 10:09 AM By my electronic signature, I attest that I have personally reviewed the images for this examination and formulated the interpretations and opinions expressed in this report Finalized by Vivek Borden M.D. on 02/27/2017 10:26 AM. Dictated by Sandrine Minaya M.D. on 02/27/2017 8:15 AM. Narrative MRI SPINE SACROCOCCYGEAL HISTORY: Low back and sacral pain. Evaluate for sacral fractures. History of healing bilateral sacral insufficiency fractures. TECHNIQUE: Multiplanar, multisequence MR images were obtained of the sacrum and coccyx without IV gadolinium contrast. CONTRAST: None COMPARISON: Lumbar spine CT February 24, 2017 and pelvis radiographs February 25, 2017. Lumbar spine MRI February 08, 2017 FINDINGS: Redemonstration of chronic bilateral sacral alar fractures, which are incompletely healed. No acute sacral fractures identified. There is a small amount of symmetric fluid within the bilateral SI joints, which may be degenerative or associated with the sacral ala fractures. There has been prior L5 vertebroplasty with bone cement filling only the fracture line. There has been interval increase in bone marrow edema within the L5 vertebral body just caudal to the bone cement filled fracture line. Coronal images show a probable new fracture line in the L5 vertebral body just caudal to the cement filled fracture line. This is probable for a new nondisplaced fracture of the L5 vertebral body just caudal to the bone cement filled fracture line. In correlation with recent CT, there is focal fluid signal within the soft tissues of the medial left buttock consistent with patient's known decubitus ulcer. There is no evidence of osteomyelitis. There is nonspecific subcutaneous fluid dependently about the sacrum. Procedure Note Interface, Radiant Results - [facility] Feb 27, 2017 10:30 AM CDT MRI SPINE SACROCOCCYGEAL HISTORY: Low back and sacral pain. Evaluate for sacral fractures. History of healing bilateral sacral insufficiency fractures. TECHNIQUE: Multiplanar, multisequence MR images were obtained of the sacrum and coccyx without IV gadolinium contrast. CONTRAST: None COMPARISON: Lumbar spine CT February 24, 2017 and pelvis radiographs February 25, 2017. Lumbar spine MRI February 08, 2017 FINDINGS: Redemonstration of chronic bilateral sacral alar fractures, which are incompletely healed. No acute sacral fractures identified. There is a small amount of symmetric fluid within the bilateral SI joints, which may be degenerative or associated with the sacral ala fractures. There has been prior L5 vertebroplasty with bone cement filling only the fracture line. There has been interval increase in bone marrow edema within the L5 vertebral body just caudal to the bone cement filled fracture line. Coronal images show a probable new fracture line in the L5 vertebral body just caudal to the cement filled fracture line. This is probable for a new nondisplaced fracture of the L5 vertebral body just caudal to the bone cement filled fracture line. In correlation with recent CT, there is focal fluid signal within the soft tissues of the medial left buttock consistent with patient's known decubitus ulcer. There is no evidence of osteomyelitis. There is nonspecific subcutaneous fluid dependently about the sacrum. IMPRESSION 1. Prior L5 vertebroplasty with probable new nondisplaced fracture involving the L5 vertebral body just caudal to the bone cement filled fracture line. This finding was discussed with BMT nurse practitioner, Cristal Vargas, via telephone at 10:05 AM on 02/27/2017. 2. Incompletely healed, chronic bilateral sacral alar fractures. No acute sacral fracture identified. 3. Medial left buttock decubitus ulcer. Approved by Sandrine Minaya M.D. on 02/27/2017 10:09 AM By my electronic signature, I attest that I have personally reviewed the images for this examination and formulated the interpretations and opinions expressed in this report Finalized by Vivek Borden M.D. on 02/27/2017 10:26 AM. Dictated by Sandrine Minaya M.D. on 02/27/2017 8:15 AM. IMMUNOGLOBULIN G (IGG) (02/26/2017 3:15 AM)Only the most recent of 2 results within the time period is included. Component Value Range IgG 246 (L) [phone] MG/DL Specimen Blood HIPS MIN 5 VIEWS W PELVIS BILAT (02/25/2017 1:01 PM) Specimen Bilateral Impressions No acute osseous abnormality of the hip. If persistent unexplained right hip pain, MRI could be obtained for further evaluation. Approved by Juan Anaya M.D. on 02/25/2017 3:19 PM By my electronic signature, I attest that I have personally reviewed the images for this examination and formulated the interpretations and opinions expressed in this report Finalized by Vivek Borden M.D. on 02/25/2017 5:41 PM. Dictated by Juan Anaya M.D. on 02/25/2017 3:17 PM. Narrative HIPS MIN 5 VIEWS W PELVIS BILAT CLINICAL HISTORY: Female, 66 years old. s/p kyphoplasty on 02/20/17, now with severe hip pain, r/o hip fracture.. COMPARISON:MRI L-spine from February 08, 2017 TECHNIQUE:HIPS MIN 5 VIEWS W PELVIS BILAT FINDINGS: Interval vertebroplasty of L5. Additional vertebroplasty material is noted within the upper lumbar spine. Healed fracture deformity of the right pubic ramus. "There is no evidence of acute fracture or dislocation.The visualized proximal femur is unremarkable. The hip joint space is well maintained.The surrounding soft tissues are unremarkable. No radiopaque foreign bodies identified. Procedure Note Interface, Radiant Results - Tue Feb 25, 2017 5:44 PM CDT HIPS MIN 5 VIEWS W PELVIS BILAT CLINICAL HISTORY: Female, 66 years old. s/p kyphoplasty on 02/20/17, now with severe hip pain, r/o hip fracture.. COMPARISON: MRI L-spine from February 08, 2017 TECHNIQUE: HIPS MIN 5 VIEWS W PELVIS BILAT FINDINGS: Interval vertebroplasty of L5. Additional vertebroplasty material is noted within the upper lumbar spine. Healed fracture deformity of the right pubic ramus. "There is no evidence of acute fracture or dislocation. The visualized proximal femur is unremarkable. The hip joint space is well maintained. The surrounding soft tissues are unremarkable. No radiopaque foreign bodies identified. IMPRESSION No acute osseous abnormality of the hip. If persistent unexplained right hip pain, MRI could be obtained for further evaluation. Approved by Juan Anaya M.D. on 02/25/2017 3:19 PM By my electronic signature, I attest that I have personally reviewed the images for this examination and formulated the interpretations and opinions expressed in this report Finalized by Vivek Borden M.D. on 02/25/2017 5:41 PM. Dictated by Juan Anaya M.D. on 02/25/2017 3:17 PM. GRAM STAIN (02/25/2017 11:50 AM)Only the most recent of 2 results within the time period is included. Component Value Range Battery Name GRAM STAIN Specimen Description SPUTUM Special Requests NONE Gram Stain LESS THAN 10/LPF NEUTROPHILS LESS THAN 10/LPF SQUAMOUS EPITHELIAL CELLS FEW MIXED BACTERIA Report Status FINAL 02/25/2017 Specimen Sputum CULTURE-RESP,LOWER W/SENSITIVITY (02/25/2017 11:50 AM)Only the most recent of 2 results within the time period is included. Component Value Range Battery Name LOWER RESP CULTURE Specimen Description SPUTUM Special Requests NONE Direct Gram Stain LESS THAN 10/LPF NEUTROPHILS LESS THAN 10/LPF SQUAMOUS EPITHELIAL CELLS FEW MIXED BACTERIA Culture Moderate growth NORMAL OROPHARYNGEAL JOELLE Report Status FINAL 02/27/[address] L-SPINE WO CONTRAST (02/25/2017 12:01 AM) Impressions 1. Interval cement augmentation of the L1, L3, and L5 vertebral bodies, with redemonstration of multiple compression deformities as above. 2. Diffuse osseous demineralization with no definite new fractures identified. Partially healed bilateral sacral insufficiency fractures are again demonstrated. 3. Stable grade 1 anterolisthesis at L3-L4. 4. Multilevel degenerative central spinal and neuroforaminal stenosis, most pronounced at L2-L3 of moderate degree. By my electronic signature, I attest that I have personally reviewed the images for this examination and formulated the interpretations and opinions expressed in this report Finalized by Vaibhav Jo M.D. on 02/25/2017 1:01 AM. Dictated by Eliud Millard M.D. on 02/25/2017 12:06 AM. Narrative EXAM: CT L-SPINE HISTORY: 66-year-old female, Low back pain with h/o vertebral fracture., TECHNIQUE: Multiple contiguous axial images were obtained of the lumbar spine without intravenous contrast. Sagittal and coronal reformations were obtained. Comparison: MRI of the lumbar spine 02/08/2017 FINDINGS: There has been interval multilevel cement augmentation, now including the T11, T12, L1, L3, and L5 vertebral bodies. Since the prior MRI, L1, L3 and L5 vertebral plasties have been performed. There is diffuse osseous demineralization. Redemonstration of multiple compression deformities, most pronounced involving the T11, T12, and L1 vertebral body. There is redemonstration of partially healed nondisplaced bilateral sacral alar fractures. There is persistent grade 1 anterolisthesis of L3 on L4. Prior laminectomy at L4 and L5 is noted. There is redemonstration of fatty atrophy of the paraspinous musculature. T12-L1: Minimal posterior disc bulge and facet arthropathy resulting in mild left neuroforaminal stenosis. Mild retropulsion of the superior posterior aspect of the colon vertebral body results in mild central canal narrowing. L1-L2: Very mild posterior disc bulge with facet hypertrophy resulting in mild bilateral neuroforaminal stenosis. L2-L3: Small posterior disc osteophyte complex with facet hypertrophy, ligamentum flavum thickening, and disc space narrowing, resulting in moderate central spinal stenosis and bilateral neuroforaminal stenosis. L3-L4: Grade 1 anterolisthesis with disc degeneration and facet hypertrophy, resulting in mild central spinal stenosis with mild right and moderate left neuroforaminal stenosis. L4-L5: No significant central spinal or neuroforaminal narrowing. L5-S1: No significant central spinal or neuroforaminal narrowing. Procedure Note Interface, Radiant Results - Tue Feb 25, 2017 1:04 AM CDT EXAM: CT L-SPINE HISTORY: 66-year-old female, Low back pain with h/o vertebral fracture., TECHNIQUE: Multiple contiguous axial images were obtained of the lumbar spine without intravenous contrast. Sagittal and coronal reformations were obtained. Comparison: MRI of the lumbar spine 02/08/2017 FINDINGS: There has been interval multilevel cement augmentation, now including the T11, T12, L1, L3, and L5 vertebral bodies. Since the prior MRI, L1, L3 and L5 vertebral plasties have been performed. There is diffuse osseous demineralization. Redemonstration of multiple compression deformities, most pronounced involving the T11, T12, and L1 vertebral body. There is redemonstration of partially healed nondisplaced bilateral sacral alar fractures. There is persistent grade 1 anterolisthesis of L3 on L4. Prior laminectomy at L4 and L5 is noted. There is redemonstration of fatty atrophy of the paraspinous musculature. T12-L1: Minimal posterior disc bulge and facet arthropathy resulting in mild left neuroforaminal stenosis. Mild retropulsion of the superior posterior aspect of the colon vertebral body results in mild central canal narrowing. L1-L2: Very mild posterior disc bulge with facet hypertrophy resulting in mild bilateral neuroforaminal stenosis. L2-L3: Small posterior disc osteophyte complex with facet hypertrophy, ligamentum flavum thickening, and disc space narrowing, resulting in moderate central spinal stenosis and bilateral neuroforaminal stenosis. L3-L4: Grade 1 anterolisthesis with disc degeneration and facet hypertrophy, resulting in mild central spinal stenosis with mild right and moderate left neuroforaminal stenosis. L4-L5: No significant central spinal or neuroforaminal narrowing. L5-S1: No significant central spinal or neuroforaminal narrowing. IMPRESSION 1. Interval cement augmentation of the L1, L3, and L5 vertebral bodies, with redemonstration of multiple compression deformities as above. 2. Diffuse osseous demineralization with no definite new fractures identified. Partially healed bilateral sacral insufficiency fractures are again demonstrated. 3. Stable grade 1 anterolisthesis at L3-L4. 4. Multilevel degenerative central spinal and neuroforaminal stenosis, most pronounced at L2-L3 of moderate degree. By my electronic signature, I attest that I have personally reviewed the images for this examination and formulated the interpretations and opinions expressed in this report Finalized by Vaibhav Jo M.D. on 02/25/2017 1:01 AM. Dictated by Eliud Millard M.D. on 02/25/2017 12:06 AM. PTT (APTT) (02/24/2017 10:00 PM)Only the most recent of 2 results within the time period is included. Component Value Range APTT 27.7 24.0-40.0 SEC Specimen Blood PROTIME INR (PT) (02/24/2017 10:00 PM)Only the most recent of 2 results within the time period is included. Component Value Range INR 0.9 0.8-1.2 Specimen Blood TELEMETRY STRIPS-SCAN (02/24/2017 1:52 PM) Narrative Ordered by an unspecified provider. IR KYPHOPLASTY/VERTBROPLASTY (02/19/2017 6:39 PM) Impressions Impression: [...] Todd Miranda M.D. on 02/20/2017 11:07 AM. MRI T-SPINE WO/W CONTRAST (02/17/2017 10:35 PM) [...] Range Amylase 25 24-100 U/L Specimen Blood 2-D + DOPPLER ECHOCARDIOGRAM (02/14/2017 [...] material indicated in this report. Specimen Blood RETICULOCYTE COUNT (02/05/2017 2:42 PM) [...] or=-2.50=Osteoporosis Procedure Note Interface, Radiant Results - Fri Jan 31, 2017 5:46 PM CDT BONE MINERAL [...] GUIDANCE FOR SPINE INJ RAD (01/30/2017 10:57 AM) Narrative This order has been auto finalized and does not contain a result. TELEMETRY STRIPS-SCAN (01/26/2017 5:45 PM) Narrative Ordered by an unspecified provider. ECG UNCONFIRMED-SCAN (01/26/2017 5:20 PM) Narrative Ordered by an unspecified provider. EXERCISE OXIMETRY-SCAN (01/26/2017 5:13 PM) Narrative Ordered by an unspecified provider. EXERCISE OXIMETRY-SCAN (01/23/2017 2:53 PM) Narrative Ordered by an unspecified provider. ECG-SCAN (01/23/2017 8:26 AM) Narrative Ordered by an unspecified provider. SLEEP STUDY-SCAN (01/20/2017 1:07 PM) Narrative Ordered by an unspecified provider. EXERCISE OXIMETRY-SCAN (01/20/2017 1:07 PM) Narrative Ordered by an unspecified provider. CRYPTOCOCCUS ANTIGEN (01/17/2017 4:05 PM) Component Value Range Cryptococcal AG Screen NEG NEG-NEG Specimen Blood PFT COMPLETE PULM FUNCTION (01/17/2017 3:02 PM) Component Value Range FVC-Pre 2.17 L FVC-%Pred-pre 61 % FEV1-Pre 1.61 L FEV1-%Pred-Pre 59 % FAI4049-Bzk 1.13 L/sec ICK9635-%Pred-Pre 48 % VCSVC-Pre 2.08 L ICSVC-Pre 1.74 [...] Aspergillus Galactomannan EIA is a product of [employer] and is FDA approved for in vitro diagnostic use. Testing Performed At: [facility] [place], [place] [id number] CLIA ID: [id number] Specimen Blood FUNGITELL (01/17/2017 12:30 PM) Component Value Range Fungitell <31 Unit: pg/mL Interpretation: The Fungitell assay does not detect certain fungal species such as the genus Cryptococcus (Naseem et al. 1991) which produces very low levels of (1-3)-Xqgq-L-Xcwkbb. The assay also does not detect the Zygomycetes such as Absidia, Mucor and Rhizopus (Yohana et al. 1994) which are not known to produce (1-3)-Pcov-L-Cxmnhw. In addition, the yeast phase of Blastomyces dermatitidis produces little (1-3)-Ggcb-L-Ifimgd and may not be detected by the [...] in vitro diagnostic use. Testing Performed At: [facility] [place], [place] [id number] CLIA ID: [id number] Specimen Blood SURGICAL PATHOLOGY (01/17/2017 12:26 PM) Component Value Range PATHOLOGY REPORT [facility] [email or web address] Zayda Baca MD, PhD, Director of Anatomic Pathology Department of Pathology and Laboratory Medicine [address] [place] [id number] Surgical Pathology Office: [phone] SURGICAL PATHOLOGY REPORT NAME: ASHLEY WOLFE SURG PATH #: [id number] MR #: [id number] SPECIMEN CLASS: SR BILLING #: [id number] ALT ID #: LOCATION: 41 DATE OF [...] developed and its performance characteristics determined by [employer]. It has not been cleared or approved by the U.S. Food and Drug Administration.-Results should be used in conjunction with clinical findings, and should not form the sole basis for a diagnosis or treatment decision.- PCR tests are performed pursuant to a license agreement with [employer]. Testing Performed At: [facility] [place] [id number] CLIA ID: [id number] Specimen Bronchial Washing RUL ASPERGILLUS GALACTOMANN (01/16/2017 [...] Aspergillus Galactomannan EIA is a product of [employer] and is FDA approved for in vitro diagnostic use. Testing Performed At: [facility] [place] [id number] CLIA ID: [id number] Specimen Bronchial Washing RUL HERPES SIMPLEX PCR [...] findings. Specimen Fluid - Bronchial Alveolar Lavage CULTURE-TB (AFB) (01/16/2017 4:07 PM) Component Value Range Battery Name AFB CULTURE Specimen Description BRONCHIAL ALVEOLAR LAVAGE, RUL Special Requests NONE Acid Fast Stain NO ACID FAST BACILLI SEEN Culture MYCOBACTERIUM AVIUM-INTRACELLULARE COMPLEX Isolated Notified Dr. Leahy about final susceptibility report on 03/06/17 @ 4019 by fax and text page. rc SUSCEPTIBILITY PERFORMED AT [facility] IN [place], [place] National standards are not available. The S,I,R interpretations are tentative based on [facility]'s internal studies. See Melting Supervisor for complete report (A) Report Status FINAL 03/06/2017 Organism ID MYCOBACTERIUM AVIUM-INTRACELLULARE COMPLEX Isolated Specimen Bronchial Alveolar Lavage,RUL Organism Antibiotic Method Susceptibility Mycobacterium avium-intracellulare Ciprofloxacin MYCOBACTER RESISTANT: Resistant complex isolated IAL IVAN Mycobacterium avium-intracellulare Clofazimine MYCOBACTER SUSCEPTIBLE: Susceptible complex isolated IAL IVAN Mycobacterium avium-intracellulare Rifabutin MYCOBACTER INTERMEDIATE: complex isolated IAL IVAN Intermediate Mycobacterium avium-intracellulare Moxifloxacin-IVAN MYCOBACTER RESISTANT : Resistant complex isolated IAL IVAN Mycobacterium avium-intracellulare Linezolid MYCOBACTER RESISTANT: Resistant complex isolated IAL IVAN Mycobacterium avium-intracellulare Clarithromycin MYCOBACTER SUSCEPTIBLE : Susceptible complex isolated IAL IVAN Mycobacterium avium-intracellulare Amikacin MYCOBACTER INTERMEDIATE: complex isolated IAL IVAN Intermediate Mycobacterium avium-intracellulare Streptomycin MYCOBACTER RESISTANT: Resistant complex isolated IAL IVAN Mycobacterium avium-intracellulare Ethambutol MYCOBACTER SUSCEPTIBLE: Susceptible complex isolated IAL IVAN Mycobacterium avium-intracellulare Rifampin-MC MYCOBACTER SUSCEPTIBLE: Susceptible complex isolated IAL IVAN Mycobacterium avium-intracellulare Method MYCOBACTER MYCOBACTERIAL IVAN complex isolated IAL IVAN CULTURE-FUNGAL,OTHER (01/16/2017 4:07 PM) Component Value Range Battery Name FUNGUS CULTURE Specimen Description BRONCHIAL ALVEOLAR LAVAGE, RUL Special Requests NONE Culture NO GROWTH OF FUNGUS AT 4 WEEKS Report Status FINAL 02/17/2017 Specimen Bronchial Alveolar Lavage,RUL BRONCHOSCOPY (01/16/2017 3:38 PM) Component Value Range Provation Report Patient Name: Ashley Wolfe Procedure Date: 01/16/2017 3:38 PM CSN: [id number] Date of : 1950 Gender: Female Attending Physician: Janusz rAagon MD Procedure: Bronchoscopy Indications: Bilateral infiltrate Providers: Janusz Aragon MD (Doctor), WILLIAM Adkins (Fellow), Camila Bowen RN (Nurse), Sehr Pantoja, Newspaper Publisher (Techn ician) Referring Physician: Elias Valente MD [...] Range TSH 4.417 0.35-5.00 MCU/ML Specimen Blood NON-DISTRIBUTION FIELD ENGINEER CYTOLOGY (BODY FLUIDS/TISSUE) (01/16/2017 10:09 AM) Component Value Range Cytology [facility] [email or web address] Zayda Baca MD, Director Cytopathology Department of Pathology and Laboratory Medicine [address] [place] [id number] Office: [phone] CYTOLOGY REPORT NAME: ASHLEY WOLFE CYTOLOGY #: [id number] MR #: [id number] ALT ID #: BILLING #: [id number] LOCATION: DATE OF PROCEDURE: 01/16/2017 10:09 AGE: [...] and/or other material indicated in this report. /01/17/2017 +++Electronically Signed Out By Mariella Solis M.D.+++ Cervical cytology is a SCREENING TEST primarily for detecting cancers and precancerous lesions. This screening test has a well documented false negative rate. Your patient's pap test results should be interpreted in conjunction with history and clinical findings. Reported using [employer] terminology. ################################################## ###################### CT CHEST WO [...] - Wed Jan 15, 2017 3:[address] CHEST Clinical Indication: Female, 66 years [...] PM) Narrative Ordered by an unspecified provider. D-DIMER (01/15/2017 1:50 PM) Component Value Range [...] PM) Narrative Ordered by an unspecified provider. METHEMOGLOBIN (01/13/2017 6:05 PM) Component Value Range [...] Color,UA GIOVANNY Turbidity,UA 2+ (A) CLEAR-CLEAR Specific [place]-Urine 1.018 1.003-1.035 pH,UA 5.0 5.0-8.0 Protein,UA 2+ [...] Results - FriJan 13, 2017 2:[address] HEAD HISTORY: HEAD INJURY MODERATE OR [...] Results - FriJan 10, 2017 3:59 PM RESISTOR COATER CTA Chest Clinical Indication: Concern for pulmonary [...] - [facility] Jan 09, 2017 10:47 AM RESISTOR COATER TUNNELED CATHETER REMOVAL CLINICAL INDICATION: Completion of Therapy ATTENDING PROVIDER: Abad Muse M.D. ANESTHESIA: 10 mL % lidocaine subcutaneous CATHETER SITE: Left internal jugular vein TECHNIQUE: IMichel M.D, the attending radiologist, was present for [...] PM) Component Value Range PATHOLOGY REPORT [facility] [email or web address] Zayda Baca MD, PhD, Director of Anatomic Pathology Department of Pathology and Laboratory Medicine [address] [place] [id number] Surgical Pathology Office: [phone] SURGICAL PATHOLOGY REPORT NAME: ASHLEY WOLFE SURG PATH #: [id number] MR #: [id number] ALT ID #: LOCATION: DATE OF PROCEDURE: [...] indicated in this report. +++Electronically Signed Out+++ w/01/01/2017 Interpreted by: Jasmyne Yap MD, Attending Physician [...] Studies: Flow Cytometry: Performed, See separate report ([id number]) which shows a negative immunophenotypic study Cytogenetics: Performed, See separate report Fluorescence In Situ Hybridization: Performed, See separate report Molecular Genetics: Not Performed Preliminary Diagnosis: Not Performed If immunohistochemical stains and/or in situ hybridization are cited in this report, the performance characteristics were determined by the Department of Pathology and Laboratory Medicine of the [facility] ([employer]) in compliance with CLIA'88 regulations. Some of these tests rely on the use of "analyte specific reagents" and are subject to specific labeling requirements by the FDA. Known positive and negative control tissues demonstrate appropriate staining. This testing was developed by the Department of Pathology and Laboratory Medicine of the [facility]. It has not been cleared or [...] fentanyl Procedure Note Interface, Radiant Results - [facility] Jan 02, 2017 2:48 PM RESISTOR COATER Bone marrow aspiration, bone marrow biopsy with [...] PM) Component Value Range PATHOLOGY REPORT [facility] [email or web address] Jasmyne Yap MD, Director of Clinical Laboratory Marvin Joseph MD, Director of Flow Cytometry Laboratory Department of Pathology and Laboratory Medicine [address] [place] [phone] Surgical Pathology Office: [phone] FLOW CYTOMETRY REPORT NAME: ASHLEY WOLFE SURG PATH #: [id number] MR #: [id number] SPECIMEN CLASS: BILLING #: [id number] ALT ID #: LOCATION: DATE OF PROCEDURE: [...] Associated Markers (% Positive Cells): CD19=0; CD20=0; [place]=0; Lambda=0; [place]:Lambda ratio=na T Cell Associated Markers (% Positive Cells): CD2=93; CD3=78; CD4=24; CD5=78; CD7=90; CD8=62; CD4:CD8 ratio=0.4 Miscellaneous Markers (% Positive Cells): CD10=0; CD38=79; UE64=721; CD56=27 Cell Viability (%): na Number of Cells Analyzed: [id number] Total Number of Markers: 16 Summary of Marker Combinations: [place]/Lambda/5/10/19/45/38/20; 2/7/5/3/4/45/56/8 This test was developed and its performance characteristics determined by the [facility] Flow Cytometry Laboratory. It has not been cleared or approved by the U.S. Food and Drug Administration (FDA). The FDA has determined that such clearance or approval is not necessary. 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 All other common clinically significant alloantibodies were [...] 2016.CTAC images from the PET exam of [facility]2015.Plain film exams of the lumbar spine November [...] 2016. Procedure Note Interface, Radiant Results - [facility] Dec 26, 2016 7:[address] ABDOMEN AND PELVIS Clinical Indication: Female, [...] 29.0 28-63 % CD16/56% 10.1 4-25 % SV92-Fyeiv 0 (L) 6-27 % CD3 Count [phone] UL CD8 Count [phone] UL CD4 Count 276 (L) 440-2160 UL [...] Mclaughlin et al. Am J. Cardiol. 2008, 101:7968-7493. The "goal" should be less than 130 [...]
[2017-03-08 13:21] VITALS: BP 102/57
--- OUTSIDE RECORDS SUMMARY | 2017-03-08 13:23 | XMS REPORT | Continuity of Care Document ---
Author Author [facility] Organization [facility] Address Unknown Phone Unavailable Care Team Providers Care Social Media Manager Name Role Phone [place] PCP [phone] Source Comments Some departments are not documenting in the electronic medical record. 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 ([facility]) 2016 Closed compression fracture of third lumbar vertebra ([facility]) 02/14/2017 Closed compression fracture of fifth lumbar vertebra ([facility]) 02/14/2017 Elevated ALT measurement 02/14/2017 Hyperkalemia 02/05/2017 Osteoporosis 02/05/2017 Bilateral dry eyes 01/23/2017 Decubitus ulcer of left buttock, stage 2 12/25/2016 Hemorrhoids 12/11/2016 Hypogammaglobulinemia ([facility]) 12/04/2016 Constipation 12/04/2016 Tobacco abuse counseling 11/20/2016 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 ([facility]) 11/20/2016 Major depressive disorder, recurrent, in partial remission ([facility]) 09/17/2016 Major depressive disorder, recurrent episode, mild ([facility]) 09/14/2016 Steroid myopathy 09/13/2016 Compression fracture 09/06/2016 Acute pain due to trauma 09/04/2016 Closed fracture of proximal end of right humerus with nonunion 08/30/2016 Low back pain 08/23/2016 Fatigue 08/12/2016 Hyperpigmentation 08/07/2016 Vertigo 08/07/2016 Atrial flutter, paroxysmal ([facility]) 08/05/2016 Overview: 08/12/16-Comprehensive EPS/Radiofrequency ablation of atrial flutter 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 She is to follow up with Dr. Grady in 4 weeks to discuss results. If she has recurrent AF, OAC will need to be addressed (CHADSVASC1 for female), and if the burden is high, discussing treatment options of AAD therapy vs. Catheter based ablation. 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 L ast Assessment & Plan: Following with Oncology, and currently in remission Thrombocytopenia ([facility]) 03/26/2016 Resolved Problems Problem Noted Date Resolved Date Generalized abdominal pain 12/25/2016 02/05/2017 Oral ulceration 11/12/2016 12/25/2016 Hypocalcemia 11/10/2016 11/13/2016 Nausea vomiting and diarrhea 10/06/2016 10/06/2016 Nausea, vomiting and diarrhea 10/06/2016 10/06/2016 Increased nausea and vomiting 10/06/2016 10/09/2016 Hypophosphatemia 08/16/2016 11/20/2016 Pancytopenia (HCC) 08/14/2016 12/25/2016 Paroxysmal a-fib (HCC) 08/10/2016 08/21/2016 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[facility]) 08/09/2016 12/25/2016 Decreased appetite 08/01/2016 11/20/2016 Elevated white blood cell count 07/29/2016 08/07/2016 Hypomagnesemia 07/29/2016 12/25/2016 Nausea 07/23/2016 08/07/2016 Acute respiratory failure with hypoxia ([facility]) 07/05/2016 07/17/2016 Pleural effusion, bilateral 07/05/2016 07/17/2016 QT prolongation 07/05/2016 11/20/2016 NANO (acute kidney injury) ([facility]) 06/30/2016 07/17/2016 Hypoxia 06/30/2016 07/29/2016 SOB (shortness of breath) 06/30/2016 11/20/2016 Hypotension 06/21/2016 11/20/2016 Oral mucositis (ulcerative) due to antineoplastic therapy 06/21/201607/17 Diarrhea 06/20/2016 07/17/2016 Postural dizziness 06/20/2016 07/17/2016 Hypokalemia 06/20/2016 11/20/2016 Syncope 06/17/2016 11/20/2016 Fall 06/15/2016 11/20/2016 Overview: Patient fell on 08/06/16 Conditioning chemotherapy prior to peripheral blood stem cell transplant 06/17/2016 Orthostatic hypotension 05/23/2016 12/25/2016 Pancytopenia due to antineoplastic chemotherapy ([facility]) 05/11/20162015 Nausea 05/05/2016 07/17/2016 On antineoplastic chemotherapy [...] Cerna APRN 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[facility]) (Primary Dx) 03/03/2017 [facility] Isaura Nur MD Debility - Encounter 03/06/2017 02/27/2017 Documentation Oncology Destiny Bush MD 02/26/2017 Screening Form 02/25/2017 Orders Only Oncology Yesi Son APRN 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) 02/24/2017 [facility] Lydia Partida MD Fatigue - [...] Sheets MD Appointment 02/17/2017 Screening Form 02/16/2017 [facility] Demarco Bowman MD Pain - [...] Mycobacterium avium complex (HCC) (Primary Dx); Pulmonary CEICLIA (mycobacterium avium-intracellulare) infection (HCC) 02/14/2017 [facility] Cardiology Vicki Kimball MD Encounter 02/14/2017 Office Visit Cardiology Edith Buckley MD New To Provider - discuss Tanja Saleem PA-C med changes 02/14/2017 Orders Only Oncology Sherice Akbar, PHARMD 02/14/2017 Documentation Cardiology Bobbi Desai Other - event monitor Enrollment confirmed-[facility] 02/14/2017 Documentation Oncology Manuel Godinez MD 02/13/2017 [facility] Burn Surgery / Burn Care [...] - LM for Palliative Care appt 02/08/2017 [facility] Radiology Edith Buckley MD Encounter 02/08/2017 Ancillary Oncology Edith Buckley MD H/O stem cell transplant Orders (HCC) (Primary Dx) 02/07/2017 Screening Form 02/06/2017 [facility] Burn Surgery / Burn Care [...] 02/03/2017 Documentation Oncology Kavya Santillan RN 01/31/2017 [facility] Radiology Vicki Kimball MD Encounter 01/31/2017 [facility] Burn Surgery / Burn Care Emily Puente APRN Encounter 01/30/2017 Office Visit Pulmonology Mat Rothman MD Lung nodule ( Primary Dx); Bronchiolitis obliterans syndrome (HCC); 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); Tobacco abuse counseling; Steroid-induced myopathy 01/30/2017 [facility] Radiology Asim Sheets MD Encounter [...] Prep for Case Janusz Aragon MD 01/15/2017 [facility] Vicki Kimball MD Bronchiolitis obliterans - Encounter Reji Castaneda DO syndrome (HCC) 01/23/2017 01/15/2017 Anesthesia Mojgan Goode, LIANET Event 01/15/2017 Orders Only Oncology Edith Buckley MD 01/14/2017 Hospital Encounter 01/11/2017 Hospital Cardiology Vaibhav Astorga DO Encounter 01/01/2017 [facility] Radiology Vicki Kimball MD Encounter Barb Livingston RN Sattarin, Hameed Collins, Zachary S, MD 01/01/2017 Screening Form 12/28/2016 [facility] Rehabilitation Cely Espinal MD Steroid-induced myopathy - Encounter Vaibhav Astorga DO 01/15/2017 12/25/2016 [facility] Edith Buckley MD Thrombocytopenia (HCC) - Encounter Kobi Ho MD 12/28/2016 12/25/2016 [facility] Oncology Edith Buckley MD Encounter [...] (HCC) 12/11/2016 Orders Only Oncology Claudia Ballard, AVIONICS SUPERVISOR 12/11/2016 Orders Only Oncology Cassandra Sullivan, PHARMD [...] OXIMETRY-SCAN 01/23/2017 Results for this 2:53 PM STEP FINISHER procedure are in the results section. ECG-SCAN 01/23/2017 Results for this 8:26 AM STEP FINISHER procedure are in the results section. SLEEP STUDY-SCAN 01/20/2017 Results for this 1:07 PM STEP FINISHER procedure are in the results section. EXERCISE OXIMETRY-SCAN 01/20/2017 Results for this 1:07 PM STEP FINISHER procedure are in the results section. BRONCHOSCOPY WITH LAVAGE 01/16/2017 Lung infiltrate 3:15 PM STEP FINISHER EXERCISE OXIMETRY-SCAN 01/15/2017 Results for this 2:34 PM STEP FINISHER procedure are in the results section. SLEEP STUDY-SCAN 01/15/2017 Results for this 2:33 PM STEP FINISHER procedure are in the results section. SLEEP STUDY-SCAN 01/14/2017 Results for this 2:47 PM STEP FINISHER procedure are in the results section. Results [...] comparing older [place] [phone] with questions. CMV Comment-Blood This assay uses analyte specific reagents to detect CMV DNA in plasma or fluid. It has not been cleared or approved by the US Food and Drug Administration. The performance characteristics were determined by the [facility]. Results should be correlated with clinical [...] POS CONSISTENT WITH HISTORICAL ANTIBODY Unit Number [id number] Blood Component Type RBC,ADSOL,LEUKO REDUCED,IRRADIATED Unit Division 0 Status OF Unit REL FROM ALLOC Transfusion Status OK TO TRANSFUSE Crossmatch Result COMPATIBLE, GEL Antigen Type (Units) Swathi antigen NEG, Unit Number [id number] Blood Component Type RBC,ADSOL,LEUKO REDUCED,IRRADIATED Unit Division 0 Status OF Unit TRANSFUSED Transfusion Status OK TO TRANSFUSE Crossmatch Result COMPATIBLE, GEL Antigen Type (Units) [place] antigen NEG, Specimen Blood LDH-LACTATE DEHYDROGENASE (02/28/2017 [...] % FEV1-Pre 1.61 L FEV1-%Pred-Pre 59 % ZIH1824-Bis 1.13 L/sec JTI4787-%Pred-Pre 48 % VCSVC-Pre 2.08 L ICSVC-Pre 1.74 [...] The performance characteristics were determined by the [facility]. Results should be correlated with clinical [...] Aspergillus Galactomannan EIA is a product of [employer] and is FDA approved for in vitro diagnostic use. Testing Performed At: [facility] [place], [place] [id number] CLIA ID: [id number] Specimen Blood FUNGITELL (01/17/2017 12:30 PM) Component Value Range Fungitell <31 Unit: pg/mL Interpretation: The Fungitell assay does not detect certain fungal species such as the genus Cryptococcus (Naseem et al. 1991) which produces very low levels of (1-3)-Cdjo-K-Eztpmf. The assay also does not detect the Zygomycetes such as Absidia, Mucor and Rhizopus (Yohana et al. 1994) which are not known to produce (1-3)-Dqot-B-Xnfcgf. In addition, the yeast phase of Blastomyces dermatitidis produces little (1-3)-Asws-F-Bwhdyr and may not be detected by the [...] in vitro diagnostic use. Testing Performed At: [facility] [place], [place] [id number] CLIA ID: [id number] Specimen Blood SURGICAL PATHOLOGY (01/17/2017 12:26 PM) Component Value Range PATHOLOGY REPORT [facility] [email or web address] Zayda Baca MD, PhD, Director of Anatomic Pathology Department of Pathology and Laboratory Medicine [address] [place] [id number] Surgical Pathology Office: [phone] SURGICAL PATHOLOGY REPORT NAME: ASHLEY WOLFE SURG PATH #: [id number] MR #: [id number] SPECIMEN CLASS: SR BILLING #: [id number] ALT ID #: LOCATION: 41 DATE OF [...] developed and its performance characteristics determined by [employer]. It has not been cleared or approved by the U.S. Food and Drug Administration.-Results should be used in conjunction with clinical findings, and should not form the sole basis for a diagnosis or treatment decision.- PCR tests are performed pursuant to a license agreement with [employer]. Testing Performed At: [facility] [place] [id number] CLIA ID: [id number] Specimen Bronchial Washing RUL ASPERGILLUS GALACTOMANN (01/16/2017 [...] Aspergillus Galactomannan EIA is a product of [employer] and is FDA approved for in vitro diagnostic use. Testing Performed At: [facility] [place] [id number] CLIA ID: [id number] Specimen Bronchial Washing RUL HERPES SIMPLEX PCR - NON-BLOOD (01/16/2017 4:17 PM) Component Value Range Specimen, Herpes BRONCHIAL ALVEOLAR LAVAGE Herpes Simplex PCR Negative for HSV-1 and 2 This assay uses analyte specific reagents to detect herpes simplex 1 and 2 DNA. It has not been cleared or approved by the US Food and Drug Administration. The performance characteristics were determined by the [facility]. Results should be correlated with clinical [...] The performance characteristics were determined by the [facility]. Results should be correlated with clinical findings. Specimen Fluid - Bronchial Alveolar Lavage CULTURE-TB (AFB) (01/16/2017 4:07 PM) Component Value Range Battery Name AFB CULTURE Specimen Description BRONCHIAL ALVEOLAR LAVAGE, RUL Special Requests NONE Acid Fast Stain NO ACID FAST BACILLI SEEN Culture MYCOBACTERIUM AVIUM-INTRACELLULARE COMPLEX Isolated Notified Dr. Leahy about final susceptibility report on 03/06/17 @ 2483 by fax and text page. rc SUSCEPTIBILITY PERFORMED AT [facility] IN [place], [place] National standards are not available. The S,I,R interpretations are tentative based on [facility]'s internal studies. See Chamber Worker for complete report (A) Report Status FINAL [...] Wolfe Procedure Date: 01/16/2017 3:38 PM CSN: [id number] Date of : 1950 Gender: Female Attending Physician: Janusz Aragon MD Procedure: Bronchoscopy Indications: Bilateral infiltrate Providers: Janusz Aragon MD (Doctor), WILLIAM Adkins (Fellow), Camila Bowen RN (Nurse), Sher Pantoja, Hash Slinger (Techn ician) Referring Physician: Elias Valente MD [...] Range TSH 4.417 0.35-5.00 MCU/ML Specimen Blood NON-DRUG AND ALCOHOL COUNSELLOR CYTOLOGY (BODY FLUIDS/TISSUE) (01/16/2017 10:09 AM) Component Value Range Cytology [facility] [email or web address] Zayda Baca MD, Director Cytopathology Department of Pathology and Laboratory Medicine [address] [place] [phone] Office: [phone] CYTOLOGY REPORT NAME: ASHLEY WOLFE CYTOLOGY #: [id number] MR #: [id number] ALT ID #: BILLING #: [id number] LOCATION: DATE OF PROCEDURE: 01/16/2017 10:09 AGE: [...] with history and clinical findings. Reported using [employer] terminology. ################################################## ###################### CT CHEST WO [...] - Wed Jan 15, 2017 3:[address] CHEST Clinical Indication: Female, 66 years [...] Color,UA GIOVANNY Turbidity,UA 2+ (A) CLEAR-CLEAR Specific [place]-Urine 1.018 1.003-1.035 pH,UA 5.0 5.0-8.0 Protein,UA 2+ [...] Results - FriJan 13, 2017 2:[address] HEAD HISTORY: HEAD INJURY MODERATE OR [...] Results - FriJan 10, 2017 3:59 PM STEP FINISHER CTA Chest Clinical Indication: Concern for pulmonary [...] - Ibis Jan 09, 2017 10:47 AM STEP FINISHER TUNNELED CATHETER REMOVAL CLINICAL INDICATION: Completion of [...] PM) Component Value Range PATHOLOGY REPORT [facility] [email or web address] Zayda Baca MD, PhD, Director of Anatomic Pathology Department of Pathology and Laboratory Medicine [address] [place] [address] Surgical Pathology Office: [phone] SURGICAL PATHOLOGY REPORT NAME: ASHLEY WOLFE SURG PATH #: [id number] MR #: [id number] ALT ID #: LOCATION: DATE OF PROCEDURE: [...] Studies: Flow Cytometry: Performed, See separate report ([id number]) which shows a negative immunophenotypic study Cytogenetics: Performed, See separate report Fluorescence In Situ Hybridization: Performed, See separate report Molecular Genetics: Not Performed Preliminary Diagnosis: Not Performed If immunohistochemical stains and/or in situ hybridization are cited in this report, the performance characteristics were determined by the Department of Pathology and Laboratory Medicine of the [facility] ([employer]) in compliance with CLIA'88 regulations. Some of these tests rely on the use of "analyte specific reagents" and are subject to specific labeling requirements by the FDA. Known positive and negative control tissues demonstrate appropriate staining. This testing was developed by the Department of Pathology and Laboratory Medicine of the [facility]. It has not been cleared [...] - Ibis Jan 02, 2017 2:48 PM STEP FINISHER Bone marrow aspiration, bone marrow biopsy with [...] PM) Component Value Range PATHOLOGY REPORT [facility] [email or web address] Jasmyne Yap MD, Director of Clinical Laboratory Marvin Joseph MD, Director of Flow Cytometry Laboratory Department of Pathology and Laboratory Medicine [address] [place] [phone] Surgical Pathology Office: [phone] FLOW CYTOMETRY REPORT NAME: ASHLEY WOLFE SURG PATH #: [id number] MR #: [id number] SPECIMEN CLASS: BILLING #: [id number] ALT ID #: LOCATION: DATE OF PROCEDURE: [...] Associated Markers (% Positive Cells): CD19=0; CD20=0; [place]=0; Lambda=0; [place]:Lambda ratio=na T Cell Associated Markers (% Positive Cells): CD2=93; CD3=78; CD4=24; CD5=78; CD7=90; CD8=62; CD4:CD8 ratio=0.4 Miscellaneous Markers (% Positive Cells): CD10=0; CD38=79; ZD48=373; CD56=27 Cell Viability (%): na Number of Cells Analyzed: [id number] Total Number of Markers: 16 Summary of Marker Combinations: [place]/Lambda/5/10/19/45/38/20; 2/7/5/3/4/45/56/8 This test was developed and its performance characteristics determined by the [facility] Flow Cytometry Laboratory. It has not been cleared or approved by the U.S. Food and Drug Administration (FDA). The FDA has determined that such clearance or approval is not necessary. BONE MARROW BIOPSY IR (01/01/2017 1:06 PM) Component Value Range Bone Marrow BX IR SEE PATHOLOGY REPORT CHROMOSOMES FISH DNA PROBE (01/01/2017 1:06 PM) Component Value Range Chromosomes Fish DNA SEE CABLE REELER FOR REPORT Probe Specimen Bone Marrow CHROMOSOMES BONE MARROW (01/01/2017 1:06 PM) Component Value Range Chromosomes Bone Marrow SEE CABLE REELER FOR REPORT Specimen Bone Marrow LEUKEMIA/LYMPHOMA PNL, [...] - Wed Jan 01, 2017 11:43 AM STEP FINISHER PET/CT NECK, CHEST, ABDOMEN AND PELVIS RADIOPHARMACEUTICAL: [...] patient's plasma contains a previously identified alloanti-K ([place]). All other common clinically significant alloantibodies were [...] 2016.CTAC images from the PET exam of [facility]2015.Plain film exams of the lumbar spine November [...] 2016. Procedure Note Interface, Radiant Results - [facility] Dec 26, 2016 7:[address] ABDOMEN AND PELVIS Clinical Indication: Female, [...] 29.0 28-63 % CD16/56% 10.1 4-25 % QZ34-Hzses 0 (L) 6-27 % CD3 Count [phone] UL CD8 Count [phone] UL CD4 Count 276 (L) [phone] UL [...] Mclaughlin et al. Am J. Cardiol. 2008, 101:4635-2777. The "goal" should be less than 130 [...]
[2017-03-08] MEDS: CEFEPIME 1,000 MG in SODIUM CHLORIDE 100 ML IV ONE ×2 (14:48→14:55)
[2017-03-08 14:53] LABS: MEAN PLATELET VOLUME 10.8 FL (6.0-9.5)
--- NOTE | 2017-03-08 14:56 | NUR ---
pharmacy not here to mix the antibiotic, in order to get out of [facility] had to place order in twice to remove
[2017-03-08 15:02] LABS: CLARITY,URINE Cloudy; COLOR,URINE Orange; GLUCOSE, URINE (UA) Negative (Negative); LEUKOCYTE ESTERASE ,URINE Trace (Negative); UROBILINOGEN,URINE 0.2 mg/dL (0.2-1.0)
[2017-03-08 15:04] LABS: BILIRUBIN,URINE 1+ (Negative)
[2017-03-08 15:06] LABS: ANION GAP 8.7 MEQ/L (3-15); CALCULATED IONIZED CALCIUM 4.3 mg/dL (3.8-4.6); TOTAL PROTEIN 5.5 g/dL (6.4-8.5)
[2017-03-08 15:21] LABS: MEAN CORPUSCULAR HEMOGLOBIN 33.2 PG (26.0-34.0); MEAN CORPUSCULAR HGB CONC 31.7 g/dL (31.0-37.0); MEAN CORPUSCULAR VOLUME 105 FL (80-100)
[2017-03-08 15:22] LABS: PLATELET COUNT 29 10^3uL (150-450)
[2017-03-08 15:23] LABS: BAND NEUTROPHILS % 11 % (0-6); EOSINOPHILS % 0 % (0-4); LYMPHOCYTES # 1.4 #; MONOCYTES # 0.3 #; MONOCYTES % 3 % (3-11); SEGMENTED NEUTROPHILS % 72 % (51-67); TOTAL CELLS COUNTED 100
[2017-03-08 15:24] LABS: RBC MORPH SEE REFERENCE (NORMAL)
[2017-03-08 15:25] LABS: ANISOCYTOSIS MODERATE; TOXIC GRANULATION/VACUOLAZATIO SLIGHT
--- NOTE | 2017-03-08 15:26 | Diagnostic Imaging Report ---
PA and lateral chest. INDICATION: Weakness. Neutropenic fever. FINDINGS: Bandlike opacity at the left lung base is most compatible with atelectasis. There is a right internal jugular port. There has been previous open reduction internal fixation of the proximal right humerus. There are surgical clips in the left axilla. There is no pneumothorax. There is no significant effusion. Heart size and mediastinal contours appear appropriate. IMPRESSION: 1. Minimal left base atelectasis. Lungs otherwise appear clear. 2. No evidence of failure. 3. Surgical clips present within the left axilla, multiple prior kyphoplasties and right proximal humeral fixation are noted. A right internal jugular central line appears appropriately positioned. Dictated by: Dictated on workstation # [id number]
[2017-03-08 15:55] LABS: RBC,URINE 20-50 /HPF; URINE CENTRIFUGED VOLUME 12 mL
== END ==
LOC: ED 13:14
DX: N39.0 Urinary tract infection, site not specified (principal); R50.81 Fever presenting with conditions classified elsewhere; Z94.81 Bone marrow transplant status; C94.80 Other specified leukemias not having achieved remission; F17.210 Nicotine dependence, cigarettes, uncomplicated
CPT/HCPCS: 36415; 71020; 80053; 81003; 81015; 85025; 87040; 87088; 96365; 99283; 99284